=== PATIENT | female | born 1935 | race Caucasian/White ===

== ENCOUNTER 2024-08-10 11:58 | Inpatient (IN) | payer MEDICARE ==
[2024-08-10] MEDS: SODIUM CHLORIDE 0.9% 1,000 ML IV STA (12:20)
--- NOTE | 2024-08-10 12:21 | ED ---
General Adult HPI - General Chief complaint: Altered Mental Status Stated complaint: fall Time Seen by Provider: 08/10/24 12:15 Source: patient Mode of arrival: EMS Limitations: no limitations - History of Present Illness Initial comments: Patient is an 89-year-old female with no significant medical history presenting today after being found on the ground at home for 3 days. Patient AO x 4. She states she rolled out of bed between the bed and her nightstand and could not get up. She was able to sit herself up intermittently however could not stand. Family came to visit today and found her on the ground. Patient denies injury, denies hitting her head, headache, neck pain, numbness or focal weakness, dizziness, palpitations, chest pain, shortness of breath, fevers or chills. She is not on blood thinners. She has no complaints currently. - Related Data Home Medications Medication Instructions Recorded Confirmed No Known Home Medications 08/10/24 08/10/24 Allergies Allergy/AdvReac Type Severity Reaction Status Date / Time apple Allergy Unknown Verified 08/11/24 18:08 Review of Systems ROS Statement: Those systems with pertinent positive or pertinent negative responses have been documented in the HPI. ROS Other: All systems not noted in ROS Statement are negative. Past Medical History Past Medical History: No Reported History Past Surgical History: No Surgical Hx Reported General Exam - General Exam Comments Initial Comments: PE: CONSTITUTIONAL: no apparent distress, ill-appearing, nontoxic SKIN: [Cool, damp, no jaundice, hives or petechiae, stage II sacral ulcer] EYES:[ pupils are equally round, extraocular movements intact without nystagmus, clear conjunctiva, non-icteric sclera] HENT: [normocephalic, palpable hematoma to the right posterior occiput, exquisitely dry mucus membranes, oropharynx clear without exudates] NECK: , [Full range of motion, normal appearance, no midline spinal tenderness palpation] PULMONARY: [clear to auscultation without wheezes, rhonchi, or rales, normal excursion, no accessory muscle use and no stridor] CARDIOVASCULAR:[Tachycardia, irregularly irregular rate and rhythm, normal S1 and S2. No appreciated murmurs, rubs or gallops. Strong radial pulses with intact distal perfusion. No lower extremity edema] GASTROINTESTINAL: [soft, active bowel sounds throughout, non-tender, non- distended, no palpable masses, no rebound or guarding. No hepatosplenomegaly] MUSCULOSKELETAL: [Extremities have no gross deformity, swelling or bruising to the right knee, no deformity] NEUROLOGIC: [_a/o x 3, GCS 15, normal mentation and speech. No focal neurologic deficits, generalized weakness with 1-2 out of 5 strength in all 4 extremities] PSYCHIATRIC:[ _normal mood and affect, thought process is clear and linear] Limitations: no limitations Course Vital Signs 08/10/24 08/10/24 08/10/24 12:01 13:12 14:12 Temperature 98.6 F Pulse Rate 106 H 112 H 112 H Respiratory 20 18 18 Rate Blood Pressure 73/39 103/72 124/85 O2 Sat by Pulse 94 L 94 L 95 Oximetry 08/10/24 08/10/24 08/10/24 14:13 15:00 15:07 Temperature Pulse Rate 105 H 121 H 122 H Respiratory 18 20 18 Rate Blood Pressure 124/85 101/63 105/64 O2 Sat by Pulse 95 95 94 L Oximetry 08/10/24 08/10/24 08/10/24 16:00 17:19 18:00 Temperature 98.7 F Pulse Rate 101 H 98 96 Respiratory 46 H 18 18 Rate Blood Pressure 109/48 107/64 120/74 O2 Sat by Pulse 94 L 95 96 Oximetry 08/10/24 08/10/24 19:21 20:05 Temperature Pulse Rate 98 102 H Respiratory 16 16 Rate Blood Pressure 117/76 96/58 O2 Sat by Pulse 92 L 96 Oximetry EKG Findings - EKG Comments: EKG Findings:: A-fib with RVR, rate 144 bpm, QT/QTc 293/376, normal axis, no STEMI, no STEMI Medical Decision Making - Medical Decision Making Was pt. sent in by a medical professional or institution (, PA, WRAPPING CLERK, urgent care, hospital, or usp...) When possible be specific @ -No Did you speak to anyone other than the patient for history (EMS, parent, family, police, friend...)? What history was obtained from this source @ -No Did you review nursing and triage notes (agree or disagree)? Why? @ -I reviewed nursing and triage notes Were old charts reviewed (outside hosp., previous admission, EMS record, old EKG, old radiological studies, urgent care reports/EKG's, usp records)? Report findings @ -Medical records reviewed Differential Diagnosis (chest pain, altered mental status, abdominal pain women, abdominal pain men, vaginal bleeding, weakness, fever, dyspnea, syncope, headache, dizziness, GI bleed, back pain, seizure, CVA, palpatations, mental health, musculoskeletal)? Differential Weakness: Hypoglycemia, shock, sepsis, hyponatremia, anemia, infection, ACS, adverse medicine reaction, overdose, stroke, rhabdomyolysis, this is not meant to be an all-inclusive list. EKG interpreted by me (3pts min.). @ -As above X-rays interpreted by me (1pt min.). @Personally reviewed chest x-ray see no cardiomegaly or consolidations, personally reviewed x-ray of knee I see no malalignment or fracture, I agree with radiologist interpretation CT interpreted by me (1pt min.). @ -I personally reviewed patient's brain CT and CT C-spine, I see no evidence of hemorrhage, hematomas, fracture on CT brain, I see no evidence of fracture or malalignment on CT C-spine I agree with radiologist interpretation U/S interpreted by me (1pt. min.). @ -None done What testing was considered but not performed or refused? (CT, X-rays, U/S, labs)? Why? @ -None What meds were considered but not given or refused? Why? @ -Heparin infusion was considered due to new onset atrial fibrillation however patient has palpable hematoma to the posterior occiput, I feel at this time risk of intracranial bleeding with heparin initiation , due to recent head trauma outweighs potential benefit Did you discuss the management of the patient with other professionals (professionals i.e. , PA, WRAPPING CLERK, lab, RT, psych nurse, social media content specialist, pipe maker, teacher, low altitude air defense officer, case supervisor)? Give summary Case discussed with Dr. Fall critical care Was smoking cessation discussed for >3mins.? @ -No Was critical care preformed (if so, how long)? @Yes, 60 minutes Were there social determinants of health that impacted care today? How? (Homelessness, low income, unemployed, alcoholism, drug addiction, transportation, low edu. Level, literacy, decrease access to med. care, [place] [facility], rehab)? @ -No Was there de-escalation of care discussed even if they declined (Discuss DNR or withdrawal of care, Hospice)? @ -No What co-morbidities impacted this encounter? (DM, HTN, Smoking, COPD, CAD, Cancer, CVA, ARF, Chemo, Hep., AIDS, mental health diagnosis, sleep apnea, morbid obesity)? @ -None Was patient admitted / discharged? Hospital course, mention meds given and route, prescriptions, significant lab abnormalities, going to OR and other pertinent info. @ -Admission to ICU- patient is a pleasant 89-year-old female with no significant medical history presenting today after being found on the ground for 3 days. Patient is AO x 4 and states that she rolled out of bed and was unable to get up, found by her family today. She denies additional medical problems or complaints currently. Complete physical exam is performed, she has a hematoma to the right posterior occiput, no midline spinal tenderness, stage II sacral ulcer, bruising to the right knee without deformity. Dry mucous membranes. Very concerned patient will be in rhabdomyolysis, she is also in A-fib with RVR but I suspect this is secondary to dehydration. Will give 10 mg dose Cardizem and Cardizem drip, start with 1 L IV fluids, patient's vital signs also concerning for sepsis so blood culture and urine culture were ordered, antibiotics not been ordered as vital signs are more likely secondary to dehydration and patient's fall and multiple metabolic abnormalities, as opposed to infectious etiology however low threshold for starting antibiotics. Patient urinalysis significant for large leukocyte esterase, Rocephin added. Full 30 cc/kg bolus is going to be withheld as patient has BNP of 2310, so want to avoid fluid overloading patient. CK 524, lactic 5.4, bicarb 7, troponin 0.055. I suspect this is secondary to demand ischemia. Heparin is being withheld at this time due to patient's recent fall and hitting her head. VBG and acetone were added to labs out of concern for DKA/HHS. Of note patient sodium corrected for glucose makes patient actually hypernatremic with sodium 147. VB G resulted with pH 7.19, acetone positive. Patient was started on DKA protocol fluids. Heart rate was not controlled with initial Cardizem bolus so full weight-based bolus of 13.5 mg Cardizem was given with resultant control of rate, heart rate less than 110. Blood pressure remained stable. Updated patient and family to findings in anticipation of admission. They are agreeable plan of care. Case was discussed with FREDY Bose with [facility] physicians, kindly except patient for admission. Case was discussed with critical care, , kindly accepts patient for admission to the ICU, recommends additional 1 L normal saline which was subsequently ordered. Undiagnosed new problem with uncertain prognosis? @ -No Drug Therapy requiring intensive monitoring for toxicity (Heparin, Nitro, Insulin, Cardizem)? @Cardizem Were any procedures done? @ -No Diagnosis/symptom? @ -Rhabdomyolysis, sepsis secondary to UTI, atrial fibrillation with RVR, fall, DKA Acute, or Chronic, or Acute on Chronic? @Acute Uncomplicated (without systemic symptoms) or Complicated (systemic symptoms)? @Complicated Side effects of treatment? @ -No Exacerbation, Progression, or Severe Exacerbation? @ -No Poses a threat to life or bodily function? How? (Chest pain, [place], [place], pneumonia, PE, COPD, DKA, ARF, appy, cholecystitis, CVA, Diverticulitis, Homicidal, Suicidal, threat to staff... and all critical care pts) @Yes, each of these diagnoses are life-threatening, and could result in shock and - Lab Data Result diagrams: 08/11/24 04:07 08/11/24 08:01 Lab Results 08/10/24 08/10/24 08/10/24 Range/Units 12:21 12:21 12:21 WBC 15.2 H (3.8-10.6) k/uL RBC 5.30 (3.80-5.40) m/uL Hgb 16.1 H (11.4-16.0) gm/dL Hct 50.9 H (34.0-46.0) % MCV 96.0 (80.0-100.0) fL MCH 30.3 (25.0-35.0) pg MCHC 31.6 (31.0-37.0) g/dL RDW 13.8 (11.5-15.5) % Plt Count 309 (150-450) k/uL MPV 8.3 Neutrophils % 90 % Lymphocytes % 4 % Monocytes % 5 % Eosinophils % 0 % Basophils % 0 % Neutrophils # 13.7 H (1.3-7.7) k/uL Lymphocytes # 0.5 L (1.0-4.8) k/uL Monocytes # 0.8 (0-1.0) k/uL Eosinophils # 0.0 (0-0.7) k/uL Basophils # 0.0 (0-0.2) k/uL PT 10.5 (10.0-12.5) sec INR 0.9 (<1.2) APTT 19.4 L (22.0-30.0) sec VBG pH (7.31-7.41) VBG pCO2 (37-51) mmHg VBG HCO3 (24-28) mmol/L Sodium 140 (137-145) mmol/L Potassium 5.7 H (3.5-5.1) mmol/L Chloride 104 (98-107) mmol/L Carbon Dioxide 7 L* (22-30) mmol/L Anion Gap 29 mmol/L BUN 75 H (7-17) mg/dL Creatinine 1.92 H (0.52-1.04) mg/dL Est GFR (CKD-EPI)AfAm 26 (>60 ml/min/1.73 sqM) Est GFR (CKD-EPI)NonAf 23 (>60 ml/min/1.73 sqM) Glucose 530 H* (74-99) mg/dL POC Glucose (mg/dL) (70-110) mg/dL POC Glu Cash Accounting Clerk ID Estimated Ave Glu mg/dL mg/dL Hemoglobin A1c (<=6.0) % Lactic Ac Sepsis Rflx Plasma Lactic Acid Derrick (0.7-2.0) mmol/L Calcium 9.6 (8.4-10.2) mg/dL Ionized Calcium Jay 5.0 (4.5-5.3) mg/dL Phosphorus 8.3 H (2.5-4.5) mg/dL Magnesium 2.6 H (1.6-2.3) mg/dL Total Bilirubin 1.4 H (0.2-1.3) mg/dL AST 51 H (14-36) U/L ALT 39 H (4-34) U/L Alkaline Phosphatase 104 (38-126) U/L Creatine Kinase 524 H (30-135) U/L Troponin I (0.000-0.034) ng/mL NT-Pro-B Natriuret Pep 2310 pg/mL Total Protein 7.0 (6.3-8.2) g/dL Albumin 4.3 (3.5-5.0) g/dL TSH 1.640 (0.465-4.680) mIU/L Urine Color Urine Appearance (Clear) Urine pH (5.0-8.0) Ur Specific [place] (1.001-1.035) Urine Protein (Negative) Urine Glucose (UA) (Negative) Urine Ketones (Negative) Urine Blood (Negative) Urine Nitrite (Negative) Urine Bilirubin (Negative) Urine Urobilinogen (<2.0) mg/dL Ur Leukocyte Esterase (Negative) Urine RBC (0-5) /hpf Urine WBC (0-5) /hpf Urine WBC Clumps (None) /hpf Ur Squamous Epith Cells (0-4) /hpf Urine Bacteria (None) /hpf Acetone, Qual (Negative) 08/10/24 08/10/24 08/10/24 Range/Units 12:21 12:21 12:21 WBC (3.8-10.6) k/uL RBC (3.80-5.40) m/uL Hgb (11.4-16.0) gm/dL Hct (34.0-46.0) % MCV (80.0-100.0) fL MCH (25.0-35.0) pg MCHC (31.0-37.0) g/dL RDW (11.5-15.5) % Plt Count (150-450) k/uL MPV Neutrophils % % Lymphocytes % % Monocytes % % Eosinophils % % Basophils % % Neutrophils # (1.3-7.7) k/uL Lymphocytes # (1.0-4.8) k/uL Monocytes # (0-1.0) k/uL Eosinophils # (0-0.7) k/uL Basophils # (0-0.2) k/uL PT (10.0-12.5) sec INR (<1.2) APTT (22.0-30.0) sec VBG pH (7.31-7.41) VBG pCO2 (37-51) mmHg VBG HCO3 (24-28) mmol/L Sodium (137-145) mmol/L Potassium (3.5-5.1) mmol/L Chloride (98-107) mmol/L Carbon Dioxide (22-30) mmol/L Anion Gap mmol/L BUN (7-17) mg/dL Creatinine (0.52-1.04) mg/dL Est GFR (CKD-EPI)AfAm (>60 ml/min/1.73 sqM) Est GFR (CKD-EPI)NonAf (>60 ml/min/1.73 sqM) Glucose (74-99) mg/dL POC Glucose (mg/dL) (70-110) mg/dL POC Glu Cash Accounting Clerk ID Estimated Ave Glu mg/dL mg/dL Hemoglobin A1c (<=6.0) % Lactic Ac Sepsis Rflx Plasma Lactic Acid Derrick 5.4 H* (0.7-2.0) mmol/L Calcium (8.4-10.2) mg/dL Ionized Calcium Jay (4.5-5.3) mg/dL Phosphorus (2.5-4.5) mg/dL Magnesium (1.6-2.3) mg/dL Total Bilirubin (0.2-1.3) mg/dL AST (14-36) U/L ALT (4-34) U/L Alkaline Phosphatase (38-126) U/L Creatine Kinase (30-135) U/L Troponin I 0.055 H* (0.000-0.034) ng/mL NT-Pro-B Natriuret Pep pg/mL Total Protein (6.3-8.2) g/dL Albumin (3.5-5.0) g/dL TSH (0.465-4.680) mIU/L Urine Color Colorless Urine Appearance Cloudy H (Clear) Urine pH 5.5 (5.0-8.0) Ur Specific [place] 1.018 (1.001-1.035) Urine Protein 1+ H (Negative) Urine Glucose (UA) 4+ H (Negative) Urine Ketones 2+ H (Negative) Urine Blood Small H (Negative) Urine Nitrite Negative (Negative) Urine Bilirubin Negative (Negative) Urine Urobilinogen <2.0 (<2.0) mg/dL Ur Leukocyte Esterase Large H (Negative) Urine RBC 15 H (0-5) /hpf Urine WBC >182 H (0-5) /hpf Urine WBC Clumps Many H (None) /hpf Ur Squamous Epith Cells <1 (0-4) /hpf Urine Bacteria Occasional H (None) /hpf Acetone, Qual (Negative) 02/23/25 02/23/25 02/23/25 Range/Units 12:21 12:21 12:23 WBC (3.8-10.6) k/uL RBC (3.80-5.40) m/uL Hgb (11.4-16.0) gm/dL Hct (34.0-46.0) % MCV (80.0-100.0) fL MCH (25.0-35.0) pg MCHC (31.0-37.0) g/dL RDW (11.5-15.5) % Plt Count (150-450) k/uL MPV Neutrophils % % Lymphocytes % % Monocytes % % Eosinophils % % Basophils % % Neutrophils # (1.3-7.7) k/uL Lymphocytes # (1.0-4.8) k/uL Monocytes # (0-1.0) k/uL Eosinophils # (0-0.7) k/uL Basophils # (0-0.2) k/uL PT (10.0-12.5) sec INR (<1.2) APTT (22.0-30.0) sec VBG pH (7.31-7.41) VBG pCO2 (37-51) mmHg VBG HCO3 (24-28) mmol/L Sodium (137-145) mmol/L Potassium (3.5-5.1) mmol/L Chloride (98-107) mmol/L Carbon Dioxide (22-30) mmol/L Anion Gap mmol/L BUN (7-17) mg/dL Creatinine (0.52-1.04) mg/dL Est GFR (CKD-EPI)AfAm (>60 ml/min/1.73 sqM) Est GFR (CKD-EPI)NonAf (>60 ml/min/1.73 sqM) Glucose (74-99) mg/dL POC Glucose (mg/dL) 479 H (70-110) mg/dL POC Glu Cash Accounting Clerk ID Berenice Guillermo Estimated Ave Glu mg/dL 321 mg/dL Hemoglobin A1c 12.8 H (<=6.0) % Lactic Ac Sepsis Rflx Plasma Lactic Acid Derrick (0.7-2.0) mmol/L Calcium (8.4-10.2) mg/dL Ionized Calcium Jay (4.5-5.3) mg/dL Phosphorus (2.5-4.5) mg/dL Magnesium (1.6-2.3) mg/dL Total Bilirubin (0.2-1.3) mg/dL AST (14-36) U/L ALT (4-34) U/L Alkaline Phosphatase (38-126) U/L Creatine Kinase (30-135) U/L Troponin I (0.000-0.034) ng/mL NT-Pro-B Natriuret Pep pg/mL Total Protein (6.3-8.2) g/dL Albumin (3.5-5.0) g/dL TSH (0.465-4.680) mIU/L Urine Color Urine Appearance (Clear) Urine pH (5.0-8.0) Ur Specific [place] (1.001-1.035) Urine Protein (Negative) Urine Glucose (UA) (Negative) Urine Ketones (Negative) Urine Blood (Negative) Urine Nitrite (Negative) Urine Bilirubin (Negative) Urine Urobilinogen (<2.0) mg/dL Ur Leukocyte Esterase (Negative) Urine RBC (0-5) /hpf Urine WBC (0-5) /hpf Urine WBC Clumps (None) /hpf Ur Squamous Epith Cells (0-4) /hpf Urine Bacteria (None) /hpf Acetone, Qual Positive (Negative) 08/10/24 08/10/24 08/10/24 Range/Units 12:53 13:50 13:50 WBC (3.8-10.6) k/uL RBC (3.80-5.40) m/uL Hgb (11.4-16.0) gm/dL Hct (34.0-46.0) % MCV (80.0-100.0) fL MCH (25.0-35.0) pg MCHC (31.0-37.0) g/dL RDW (11.5-15.5) % Plt Count (150-450) k/uL MPV Neutrophils % % Lymphocytes % % Monocytes % % Eosinophils % % Basophils % % Neutrophils # (1.3-7.7) k/uL Lymphocytes # (1.0-4.8) k/uL Monocytes # (0-1.0) k/uL Eosinophils # (0-0.7) k/uL Basophils # (0-0.2) k/uL PT (10.0-12.5) sec INR (<1.2) APTT (22.0-30.0) sec VBG pH 7.18 L* (7.31-7.41) VBG pCO2 37 (37-51) mmHg VBG HCO3 14 L (24-28) mmol/L Sodium (137-145) mmol/L Potassium 4.7 (3.5-5.1) mmol/L Chloride (98-107) mmol/L Carbon Dioxide (22-30) mmol/L Anion Gap mmol/L BUN (7-17) mg/dL Creatinine (0.52-1.04) mg/dL Est GFR (CKD-EPI)AfAm (>60 ml/min/1.73 sqM) Est GFR (CKD-EPI)NonAf (>60 ml/min/1.73 sqM) Glucose (74-99) mg/dL POC Glucose (mg/dL) (70-110) mg/dL POC Glu Cash Accounting Clerk ID Estimated Ave Glu mg/dL mg/dL Hemoglobin A1c (<=6.0) % Lactic Ac Sepsis Rflx Y Plasma Lactic Acid Derrick (0.7-2.0) mmol/L Calcium (8.4-10.2) mg/dL Ionized Calcium Jay (4.5-5.3) mg/dL Phosphorus (2.5-4.5) mg/dL Magnesium (1.6-2.3) mg/dL Total Bilirubin (0.2-1.3) mg/dL AST (14-36) U/L ALT (4-34) U/L Alkaline Phosphatase (38-126) U/L Creatine Kinase (30-135) U/L Troponin I (0.000-0.034) ng/mL NT-Pro-B Natriuret Pep pg/mL Total Protein (6.3-8.2) g/dL Albumin (3.5-5.0) g/dL TSH (0.465-4.680) mIU/L Urine Color Urine Appearance (Clear) Urine pH (5.0-8.0) Ur Specific [place] (1.001-1.035) Urine Protein (Negative) Urine Glucose (UA) (Negative) Urine Ketones (Negative) Urine Blood (Negative) Urine Nitrite (Negative) Urine Bilirubin (Negative) Urine Urobilinogen (<2.0) mg/dL Ur Leukocyte Esterase (Negative) Urine RBC (0-5) /hpf Urine WBC (0-5) /hpf Urine WBC Clumps (None) /hpf Ur Squamous Epith Cells (0-4) /hpf Urine Bacteria (None) /hpf Acetone, Qual (Negative) 08/10/24 08/10/24 Range/Units 13:50 14:02 WBC (3.8-10.6) k/uL RBC (3.80-5.40) m/uL Hgb (11.4-16.0) gm/dL Hct (34.0-46.0) % MCV (80.0-100.0) fL MCH (25.0-35.0) pg MCHC (31.0-37.0) g/dL RDW (11.5-15.5) % Plt Count (150-450) k/uL MPV Neutrophils % % Lymphocytes % % Monocytes % % Eosinophils % % Basophils % % Neutrophils # (1.3-7.7) k/uL Lymphocytes # (1.0-4.8) k/uL Monocytes # (0-1.0) k/uL Eosinophils # (0-0.7) k/uL Basophils # (0-0.2) k/uL PT (10.0-12.5) sec INR (<1.2) APTT (22.0-30.0) sec VBG pH (7.31-7.41) VBG pCO2 (37-51) mmHg VBG HCO3 (24-28) mmol/L Sodium (137-145) mmol/L Potassium (3.5-5.1) mmol/L Chloride (98-107) mmol/L Carbon Dioxide (22-30) mmol/L Anion Gap mmol/L BUN (7-17) mg/dL Creatinine (0.52-1.04) mg/dL Est GFR (CKD-EPI)AfAm (>60 ml/min/1.73 sqM) Est GFR (CKD-EPI)NonAf (>60 ml/min/1.73 sqM) Glucose (74-99) mg/dL POC Glucose (mg/dL) 447 H (70-110) mg/dL POC Glu Cash Accounting Clerk JOSE Moreno Estimated Ave Glu mg/dL mg/dL Hemoglobin A1c (<=6.0) % Lactic Ac Sepsis Rflx Plasma Lactic Acid Derrick (0.7-2.0) mmol/L Calcium (8.4-10.2) mg/dL Ionized Calcium Jay (4.5-5.3) mg/dL Phosphorus (2.5-4.5) mg/dL Magnesium (1.6-2.3) mg/dL Total Bilirubin (0.2-1.3) mg/dL AST (14-36) U/L ALT (4-34) U/L Alkaline Phosphatase (38-126) U/L Creatine Kinase 681 H (30-135) U/L Troponin I (0.000-0.034) ng/mL NT-Pro-B Natriuret Pep pg/mL Total Protein (6.3-8.2) g/dL Albumin (3.5-5.0) g/dL TSH (0.465-4.680) mIU/L Urine Color Urine Appearance (Clear) Urine pH (5.0-8.0) Ur Specific [place] (1.001-1.035) Urine Protein (Negative) Urine Glucose (UA) (Negative) Urine Ketones (Negative) Urine Blood (Negative) Urine Nitrite (Negative) Urine Bilirubin (Negative) Urine Urobilinogen (<2.0) mg/dL Ur Leukocyte Esterase (Negative) Urine RBC (0-5) /hpf Urine WBC (0-5) /hpf Urine WBC Clumps (None) /hpf Ur Squamous Epith Cells (0-4) /hpf Urine Bacteria (None) /hpf Acetone, Qual (Negative) Disposition Clinical Impression: DKA (diabetic ketoacidosis), Rhabdomyolysis, Atrial fibrillation with rapid ventricular response Disposition: ADMITTED IP TO THIS HOSP Condition: Stable
[2024-08-10 12:26] LABS: Basophils % (A) 0 %; Eosinophils % (A) 0 %; HCT 50.9 % (34.0-46.0); HGB 16.1 gm/dL (11.4-16.0); Lymphocytes # (A) 0.5 k/uL (1.0-4.8); Lymphocytes % (A) 4 %; MCH 30.3 pg (25.0-35.0); MCHC 31.6 g/dL (31.0-37.0); Mean Platelet Volume 8.3; Monocytes # (A) 0.8 k/uL (0-1.0); Monocytes % (A) 5 %; Neutrophils # (A) 13.7 k/uL (1.3-7.7); Neutrophils % (A) 90 %; Platelet Count 309 k/uL (150-450); RDW 13.8 % (11.5-15.5); WBC 15.2 k/uL (3.8-10.6)
[2024-08-10 12:29] LABS: Glucose,Whole Blood 479 mg/dL (70-110)
[2024-08-10 12:33] LABS: Appearance,Urine Cloudy (Clear); Bacteria,Urine Occasional /hpf; Bilirubin,Urine Negative (Negative); Blood,Urine Small (Negative); Color,Urine Colorless; Glucose,Urine (UA) 4+ (Negative); Leukocyte Esterase,Urine Large (Negative); Nitrite,Urine Negative (Negative); PH, Urine 5.5 (5.0-8.0); Protein,Urine 1+ (Negative); RBC,Urine 15 /hpf (0-5); Specific Gravity,Urine 1.018 (1.001-1.035); Squamous Epithelial Cell,Urine <1 /hpf (0-4); Urobilinogen,Urine <2.0 mg/dL (<2.0); WBC,Urine >182 /hpf (0-5)
[2024-08-10 12:37] LABS: Ketones,Urine 2+ (Negative)
[2024-08-10] MEDS: DILTIAZEM DRIP BOLUS FROM BAG 1 MG SOLN IV ONE ×2 (12:37→13:45)
[2024-08-10 12:38] LABS: ALT 39 U/L (4-34); African American GFR (CKD) 26 (>60 ml/min/1.73 sqM); Anion Gap 29 mmol/L; Blood Urea Nitrogen 75 mg/dL (7-17); Calcium 9.6 mg/dL (8.4-10.2); Chloride 104 mmol/L (98-107); Non-African American GFR(CKD) 23 (>60 ml/min/1.73 sqM); Sodium 140 mmol/L (137-145)
[2024-08-10] MEDS ORDERED: DILTIAZEM DRIP BOLUS FROM BAG 1 MG SOLN IV ONE (12:42)
[2024-08-10] MEDS: DILTIAZEM 125 MG in SODIUM CHLORIDE 0.9% 100 ML IV SCH (12:45)
[2024-08-10 12:47] LABS: NT-Pro-B-Type Natriuretic Pept 2310 pg/mL
[2024-08-10 12:50] LABS: Carbon Dioxide 7 mmol/L (22-30); Glucose 530 mg/dL (74-99); Phosphorus 8.3 mg/dL (2.5-4.5); Potassium 5.7 mmol/L (3.5-5.1)
[2024-08-10 12:51] LABS: AST 51 U/L (14-36); Albumin 4.3 g/dL (3.5-5.0); Alkaline Phosphatase 104 U/L (38-126); Creatine Kinase 524 U/L (30-135); Magnesium 2.6 mg/dL (1.6-2.3); Total Bilirubin 1.4 mg/dL (0.2-1.3)
[2024-08-10] MEDS ORDERED: Potassium Replacement Protocol 1 EACH MISC MISCELLANE PRN (13:12)
[2024-08-10] MEDS ORDERED: DEXTROSE 50% SYRINGE 50 ML IVP PRN ×2 (13:12)
[2024-08-10] MEDS ORDERED: Magnesium Replacement Protocol 1 EACH MISC MISCELLANE PRN (13:12)
[2024-08-10 13:17] LABS: INR 0.9 (<1.2); Prothrombin Time 10.5 sec (10.0-12.5)
[2024-08-10 13:18] LABS: Partial Thromboplastin Time 19.4 sec (22.0-30.0)
--- NOTE | 2024-08-10 13:18 | CT ---
EXAMINATION TYPE: CT brain nimisha wo con DATE OF EXAM: 08/10/2024 1:08 PM COMPARISON: None. CLINICAL INDICATION: Female, 89 years old with history of fall from bed, hematoma R. post. Occiput, f all from bed, hematoma R. post. Occiput, pain TECHNIQUE: CT of the brain is performed utilizing 3 mm thick sections through the posterior fossa and 3 mm thick sections through the remaining calvarium. Study is performed within 24 hours of arrival to the hospital. Contrast used: mL of , (none if empty) CT DLP: 1317.6 mGycm, Automated exposure control for dose reduction was used. FINDINGS: No abnormal hyperdensity is present to suggest an acute intracranial hemorrhage. No mass lesion is evident. No acute infarcts are evident. There is some periventricular white matter hypodensity, likely on the basis of chronic white matter ischemic changes. Ventricles and sulci are prominent for the patient age. No acute fractures evident. Paranasal sinuses and mastoid air cells within the [id number] are clear. IMPRESSIONS: 1. No acute intracranial process. Follow-up MRI can be performed as clinically indicated. 2. Chronic appearing periventricular white matter ischemic type changes with age related atrophy. CT cervical spine. COMPARISON: None TECHNIQUE: CT of the cervical spine is performed in the axial plane at 2 mm thick sections. Reconstr ucted images in the coronal, and sagittal plane are reviewed on the computer. FINDINGS: No acute fractures are evident. Vertebral body alignment is normal. Disc heights are preserved. Vertebral body heights are preserved. No spinal canal stenosis is evident. No neural foraminal stenosis is evident. IMPRESSION: 1. No acute osseous abnormality cervical spine. [facility], , 08/10/2024 1:16 PM
--- NOTE | 2024-08-10 13:47 | XR ---
EXAMINATION TYPE: XR chest 2V DATE OF EXAM: 08/10/2024 1:40 PM COMPARISON: None. CLINICAL INDICATION: Female, 89 years old with history of Weakness, TECHNIQUE: XR chest 2V view(s) obtained. FINDINGS: The heart size is normal. The pulmonary vasculature is normal. The lungs are clear. Small hiatal hernia not excluded IMPRESSION: 1. No acute pulmonary process. 2. Small hiatal hernia is not excluded. [facility], , 08/10/2024 1:45 PM
--- NOTE | 2024-08-10 13:48 | XR ---
EXAMINATION TYPE: XR knee complete RT DATE OF EXAM: 08/10/2024 1:40 PM COMPARISON: None. CLINICAL INDICATION: Female, 89 years old with history of bruising, fall, no deformity, pain TECHNIQUE: 3 view(s) obtained. FINDINGS: No significant joint effusion is evident. Anterior superior patellar spur is present. Joint spaces ar e preserved. No acute fracture or dislocation evident. Follow up exams can be performed 7-10 days from acute trauma for continued pain. IMPRESSION: 1. No acute osseous abnormality right knee [facility], , 08/10/2024 1:46 PM
[2024-08-10] MEDS: cefTRIAXone IN SWFI 1,000 MG/10 ML SYRINGE IVP STA (13:55)
[2024-08-10] MEDS: SODIUM CHLORIDE 0.9% 1,000 ML IV SCH (13:56)
[2024-08-10 14:05] LABS: VBG PH 7.18 (7.31-7.41)
[2024-08-10] MEDS: INSULIN REGULAR 100 UNIT in SODIUM CHLORIDE 0.9% 100 ML IV SCH (14:09)
[2024-08-10] MEDS: INSULIN REGULAR BOLUS (FROM DRIP BAG) IV ONE (14:09)
[2024-08-10 14:13] LABS: Glucose,Whole Blood 447 mg/dL (70-110)
[2024-08-10] MEDS ORDERED: NALOXONE 0.4 MG/ML 1 ML VIAL IV PRN (14:31)
[2024-08-10] MEDS ORDERED: Phosphorus Replacement Protoco 1 EACH MISC MISCELLANE PRN (14:43)
[2024-08-10 15:05] LABS: Glucose,Whole Blood 383 mg/dL (70-110)
[2024-08-10 16:19] LABS: African American GFR (CKD) 33 (>60 ml/min/1.73 sqM); Anion Gap 20 mmol/L; Blood Urea Nitrogen 77 mg/dL (7-17); Carbon Dioxide 12 mmol/L (22-30); Chloride 113 mmol/L (98-107); Glucose 322 mg/dL (74-99); Non-African American GFR(CKD) 28 (>60 ml/min/1.73 sqM); Potassium 3.9 mmol/L (3.5-5.1); Sodium 145 mmol/L (137-145)
[2024-08-10 16:22] LABS: Glucose,Whole Blood 251 mg/dL (70-110)
--- NOTE | 2024-08-10 16:33 | P.CNPUL ---
History of Present Illness Consult date: 08/10/24 Chief complaint: DKA History of present illness: 89-year-old female patient presented to the ED after being found on the floor at home. The patient was feeling weak and she stated that she was unable to get up and carry herself. She was unable to stand. No reported injuries. Workup was done in the ED and the patient was found to have hyperglycemia with a glucose of 530. Acute kidney injury with a BUN of 75 and a creatinine of 1.9. She had a anion gap metabolic acidosis with a gap of 29 and serum bicarb of 7. Sodium was at 140. Lactic acid level was at 5.4. CPK was 524. LFTs showed a bilirubin of 1.4. Calcium levels at 9.6. proBNP level is 2310. UA showed plus for glucose, +2 ketones and multiple WBCs. Serum acetone was positive. White cell count was at 15.2 with a hemoglobin of 16.1 and platelet count of 309. Chest x-ray showed small hiatal hernia without any acute abnormalities. X-ray of the knee showed no fracture and CAT scan of the head and h cervical spine showed no fractures. Chronic appearing periventricular white matter disease was noted along with some atrophy. Based on that, the patient was started on IV fluids, given 2 L bolus and the patient is currently on normal saline at rate of 200 cc an hour and the patient was started on insulin drip at 0.1 units/kg/h. Patient was also noted to be an atrial fibrillation with rapid ventricular response. The heart rate was 144 initially and improved with fluid resuscitation. She was hypotensive initially with a blood pressure of 73/39 and her most recent heart rate shows improvement with a rate of 122 and a BP of 105/64. She remains on room air oxygen with a pulse ox of 94%. Based on that, and the intensive care unit consultation was requested. Review of Systems Constitutional: Reports daytime sleepiness, Reports fatigue, Reports poor appetite, Reports weakness Eyes: denies as per HPI, denies blurred vision, denies bulging eye, denies decreased vision, denies diplopia, denies discharge, denies dry eye, denies irritation, denies itching, denies pain, denies photophobia, denies loss of peripheral vision, denies loss of vision, denies tunnel vision/blind spots Ears: deny: decreased hearing, ear discharge, earache, tinnitus Ears, nose, mouth and throat: Reports as per HPI Breasts: absent: as per HPI, change in shape, gynecomastia, masses, nipple discharge, pain, skin changes, swelling Cardiovascular: Reports as per HPI Respiratory: Reports as per HPI Gastrointestinal: Reports as per HPI Genitourinary: Reports as per HPI Menstruation: Reports as per HPI Musculoskeletal: absent: ankle pain, ankle stiffness, ankle swelling, as per HPI, elbow pain, elbow stiffness, elbow swelling, foot pain, foot stiffness, foot swelling, hand pain, hand stiffness, hand swelling, hip pain, hip stiffness, hip swelling, knee pain, knee stiffness, knee swelling, shoulder pain, shoulder stiffness, shoulder swelling, wrist pain, wrist stiffness, wrist swelling Integumentary: Reports as per HPI Neurological: Reports as per HPI, Reports gait dysfunction, Reports weakness Psychiatric: Reports as per HPI Endocrine: Reports high blood sugars Hematologic/Lymphatic: Reports as per HPI Allergic/Immunologic: Reports as per HPI Past Medical History Past Medical History: No Reported History, Diabetes Mellitus Past Surgical History: No Surgical Hx Reported Medications and Allergies Home Medications Medication Instructions Recorded Confirmed Type No Known Home Medications 08/10/24 08/10/24 History Allergies Allergy/AdvReac Type Severity Reaction Status Date / Time No Known Allergies Allergy Verified 08/10/24 12:17 Physical Exam Vitals: Vital Signs Temp Pulse Resp BP Pulse Ox 08/10/24 15:07 122 H 18 105/64 94 L 08/10/24 14:12 112 H 18 124/85 95 08/10/24 13:12 112 H 18 103/72 94 L 08/10/24 12:01 98.6 F 106 H 20 73/39 94 L Intake and Output 08/10/24 08/10/24 08/10/24 06:59 14:59 22:59 Other: Weight 54.431 kg The patient appeared well nourished and normally developed. Vital signs as documented. Mucous membranes are dry Head exam is unremarkable. No scleral icterus or corneal arcus noted. Neck is without jugular venous distension, thyromegaly, or carotid bruits. Carotid upstrokes are brisk bilaterally. Lungs are clear to auscultation and percussion. Cardiac exam reveals the PMI to be normally sized and situated. Irregular, tachycardic, consistent with A-fib with RVR. First and second heart sounds normal. No murmurs, rubs or gallops. Abdominal exam reveals normal bowel sounds, no masses, no organomegaly and no aortic enlargement. Extremities are nonedematous and both femoral and pedal pulses are normal. Examination of the skin revealed no evidence of significant rashes, suspicious appearing nevi or other concerning lesions. Neurologically, the patient is awake and alert and the patient does not have any focal neurological deficit. Cranial nerves are essentially intact. Results - Laboratory Findings CBC and BMP: 08/10/24 12:21 08/10/24 13:50 PT/INR, D-dimer PT 10.5 sec (10.0-12.5) 08/10/24 12:21 INR 0.9 (<1.2) 08/10/24 12:21 Abnormal lab findings: Abnormal Labs 08/10/24 08/10/24 08/10/24 12:21 12:21 12:21 WBC 15.2 H Hgb 16.1 H Hct 50.9 H Neutrophils # 13.7 H Lymphocytes # 0.5 L APTT 19.4 L VBG pH VBG HCO3 Potassium 5.7 H Carbon Dioxide 7 L* BUN 75 H Creatinine 1.92 H Glucose 530 H* POC Glucose (mg/dL) Plasma Lactic Acid Derrick Phosphorus 8.3 H Magnesium 2.6 H Total Bilirubin 1.4 H AST 51 H ALT 39 H Creatine Kinase 524 H Troponin I Urine Appearance Urine Protein Urine Glucose (UA) Urine Ketones Urine Blood Ur Leukocyte Esterase Urine RBC Urine WBC Urine WBC Clumps Urine Bacteria 08/10/24 08/10/24 08/10/24 12:21 12:21 12:21 WBC Hgb Hct Neutrophils # Lymphocytes # APTT VBG pH VBG HCO3 Potassium Carbon Dioxide BUN Creatinine Glucose POC Glucose (mg/dL) Plasma Lactic Acid Derrick 5.4 H* Phosphorus Magnesium Total Bilirubin AST ALT Creatine Kinase Troponin I 0.055 H* Urine Appearance Cloudy H Urine Protein 1+ H Urine Glucose (UA) 4+ H Urine Ketones 2+ H Urine Blood Small H Ur Leukocyte Esterase Large H Urine RBC 15 H Urine WBC >182 H Urine WBC Clumps Many H Urine Bacteria Occasional H 08/10/24 08/10/24 08/10/24 12:23 13:50 13:50 WBC Hgb Hct Neutrophils # Lymphocytes # APTT VBG pH 7.18 L* VBG HCO3 14 L Potassium Carbon Dioxide BUN Creatinine Glucose POC Glucose (mg/dL) 479 H Plasma Lactic Acid Derrick Phosphorus Magnesium Total Bilirubin AST ALT Creatine Kinase 681 H Troponin I Urine Appearance Urine Protein Urine Glucose (UA) Urine Ketones Urine Blood Ur Leukocyte Esterase Urine RBC Urine WBC Urine WBC Clumps Urine Bacteria 08/10/24 08/10/24 14:02 15:04 WBC Hgb Hct Neutrophils # Lymphocytes # APTT VBG pH VBG HCO3 Potassium Carbon Dioxide BUN Creatinine Glucose POC Glucose (mg/dL) 447 H 383 H Plasma Lactic Acid Derrick Phosphorus Magnesium Total Bilirubin AST ALT Creatine Kinase Troponin I Urine Appearance Urine Protein Urine Glucose (UA) Urine Ketones Urine Blood Ur Leukocyte Esterase Urine RBC Urine WBC Urine WBC Clumps Urine Bacteria - Diagnostic Findings Chest x-ray: image reviewed Assessment and Plan Plan: Acute DKA with hyperglycemia and anion gap metabolic acidosis Acute kidney injury, creatinine is at 1.9 likely secondary to intravascular volume depletion and dehydration Mild hyperkalemia secondary to anion gap metabolic acidosis and DKA Atrial fibrillation with rapid ventricular response Mild rhabdomyolysis secondary to above. The patient had collapsed on the floor for several days Suspected UTI Mild leukocytosis, reactive versus septic in nature Generalized weakness secondary to above. Plan Total of 2 L of normal saline Normal saline at rate of 200 cc an hour and insulin drip per DKA protocol Hourly blood sugar monitoring Electrolytes every 4 hours Monitor CPK Monitor renal function Monitor white cell count Give IV Rocephin 1 g every 24 hours Blood cultures and urine cultures Echocardiogram Monitor the heart rate and utilize Cardizem drip if needed Anticipated from the heart rates with fluid resuscitation Will discuss anticoagulation for later stage Admit to the ICU
[2024-08-10] MEDS: LACTATED RINGERS 1,000 ML BAG IV STA (16:52)
[2024-08-10] MEDS: D5-0.45% NACL WITH KCL 20MEQ/L 1,000 ML IV SCH (16:52)
--- NOTE | 2024-08-10 17:01 | P.HPIM ---
History of Present Illness H&P Date: 08/10/24 89 year old F with no PMH does not follow a physician presents to the ED. Daughter and grand daughter at bedside providing majority of the history. Appears she fell while trying to get out of bed on . She was found down on Sunday. Unknown head trauma or loss of consciousness. Lives alone and ambulates with the aid of a cane. In the ED she underwent extensive evaluation. BP 73/39, HR 106, T 98.6F, RR 22, 94% on RA. CBC, Coag panel, CMP significant for WBC 15.2, Hg 16.1, Hct 50.9, APTT 19.4, K 5.7, bicarb 7, BUN 75, Cr 1.92, glu 530, T. Bili 1.4, AST 51, ALT 39. Lactic acid 5.4. CPK 526. Trop 0.055. BNP 2310. TSH 1.64. Phos 8.3. Mag 2.6. UA large LE with > [address] head and C-spine no acute process. CXR, Knee XR no acute process. EKG A-Fib with RVR rate of 144. Patient is admitted to ICU for further workup and management. General: Lethargic Derm: warm, dry Head: atraumatic, normocephalic, symmetric Eyes: EOMI, no lid lag, anicteric sclera Mouth: no lip lesion, mucus membranes moist Cardiovascular: S1S2 irreg, no murmur Lungs: Decreased BS bilateral, no rhonchi, no rales , no accessory muscle use Abdominal: soft, nontender to palpation, no guarding, no appreciable organomegaly Ext: no gross muscle atrophy, no edema, no contractures Neuro: no focal neuro deficits Psych: Lethargic Based on my assessment of this patient, this patient meets a high complexity level of care. Diabetic ketoacidosis: Start insulin drip. D5 1/2 NS with 20 meq KCl at 150 cc/hr. A1c ordered. Accuchecks Q1H. BMP Q4H. Telemetry monitoring. Sepsis possibly related to UTI: IV hydration as above. Start Rocephin 1g IV QD. Obtain UCx, BCx. Atrial fibrillation with RVR: TSH wnl. Cardizem drip at 5 mg/hr. ASHISH VASC of 3. Maintain K > 4 and Mg > 2. Start Eliquis 2.5 mg PO BID. Echo ordered. Cardiology consult. NSTEMI: Likely type 2. No chest pain. Trend Trop/EKG. Management as above. Hyperkalemia: Resolved with IV hydration and IV insulin. Acute kidney injury: Versus CKD. IV hydration as above. Renal bladder US ordered. Transaminitis: Unknown etiology. Liver GB US ordered. CODE STATUS: FULL CODE DVT Prophylaxis: Eliquis GI Prophylaxis: Protonix 40 mg IV QD. Designated medical POA if patient is not able to make medical decisions for themselves: Daughter I have reviewed the following environmental consultant notes: ED note. Pulmonary note. I have reviewed the results of the following tests: As above. I have ordered the following tests: As above. I have discussed the care of this patient with the following independent historian: Family. EVANS. I have independently interpreted the following test below: EKG. I have discussed the management of this patient with the following physician: Dr. Amaya. Past Medical History Past Medical History: No Reported History Past Surgical History: No Surgical Hx Reported Medications and Allergies Home Medications Medication Instructions Recorded Confirmed Type No Known Home Medications 08/10/24 08/10/24 History Allergies Allergy/AdvReac Type Severity Reaction Status Date / Time No Known Allergies Allergy Verified 08/10/24 12:17 Physical Exam Vitals: Vital Signs Temp Pulse Resp BP Pulse Ox 08/10/24 16:00 101 H 46 H 109/48 94 L 08/10/24 15:07 122 H 18 105/64 94 L 08/10/24 15:00 121 H 20 101/63 95 08/10/24 14:13 105 H 18 124/85 95 08/10/24 14:12 112 H 18 124/85 95 08/10/24 13:12 112 H 18 103/72 94 L 08/10/24 12:01 98.6 F 106 H 20 73/39 94 L Intake and Output 08/10/24 08/10/24 08/10/24 06:59 14:59 22:59 Intake Total 12.187 Balance 12.187 Intake: Intake, IV Titration 12.187 Amount Insulin Regular 100 unit 12.187 In Sodium Chloride 0.9% 100 ml @ 0.1 UNITS/KG/HR 5.498 mls/hr IV .[id number] [facility] Rx#:[id number] Other: Weight 54.431 kg Results CBC & Chem 7: 08/10/24 12:21 08/10/24 15:53 Labs: Abnormal Lab Results - Last 24 Hours (Table) 08/10/24 08/10/24 08/10/24 Range/Units 12:21 12:21 12:21 WBC 15.2 H (3.8-10.6) k/uL Hgb 16.1 H (11.4-16.0) gm/dL Hct 50.9 H (34.0-46.0) % Neutrophils # 13.7 H (1.3-7.7) k/uL Lymphocytes # 0.5 L (1.0-4.8) k/uL APTT 19.4 L (22.0-30.0) sec VBG pH (7.31-7.41) VBG HCO3 (24-28) mmol/L Potassium 5.7 H (3.5-5.1) mmol/L Chloride (98-107) mmol/L Carbon Dioxide 7 L* (22-30) mmol/L BUN 75 H (7-17) mg/dL Creatinine 1.92 H (0.52-1.04) mg/dL Glucose 530 H* (74-99) mg/dL POC Glucose (mg/dL) (70-110) mg/dL Plasma Lactic Acid Derrick (0.7-2.0) mmol/L Phosphorus 8.3 H (2.5-4.5) mg/dL Magnesium 2.6 H (1.6-2.3) mg/dL Total Bilirubin 1.4 H (0.2-1.3) mg/dL AST 51 H (14-36) U/L ALT 39 H (4-34) U/L Creatine Kinase 524 H (30-135) U/L Troponin I (0.000-0.034) ng/mL Urine Appearance (Clear) Urine Protein (Negative) Urine Glucose (UA) (Negative) Urine Ketones (Negative) Urine Blood (Negative) Ur Leukocyte Esterase (Negative) Urine RBC (0-5) /hpf Urine WBC (0-5) /hpf Urine WBC Clumps (None) /hpf Urine Bacteria (None) /hpf 08/10/24 08/10/24 08/10/24 Range/Units 12:21 12:21 12:21 WBC (3.8-10.6) k/uL Hgb (11.4-16.0) gm/dL Hct (34.0-46.0) % Neutrophils # (1.3-7.7) k/uL Lymphocytes # (1.0-4.8) k/uL APTT (22.0-30.0) sec VBG pH (7.31-7.41) VBG HCO3 (24-28) mmol/L Potassium (3.5-5.1) mmol/L Chloride (98-107) mmol/L Carbon Dioxide (22-30) mmol/L BUN (7-17) mg/dL Creatinine (0.52-1.04) mg/dL Glucose (74-99) mg/dL POC Glucose (mg/dL) (70-110) mg/dL Plasma Lactic Acid Derrick 5.4 H* (0.7-2.0) mmol/L Phosphorus (2.5-4.5) mg/dL Magnesium (1.6-2.3) mg/dL Total Bilirubin (0.2-1.3) mg/dL AST (14-36) U/L ALT (4-34) U/L Creatine Kinase (30-135) U/L Troponin I 0.055 H* (0.000-0.034) ng/mL Urine Appearance Cloudy H (Clear) Urine Protein 1+ H (Negative) Urine Glucose (UA) 4+ H (Negative) Urine Ketones 2+ H (Negative) Urine Blood Small H (Negative) Ur Leukocyte Esterase Large H (Negative) Urine RBC 15 H (0-5) /hpf Urine WBC >182 H (0-5) /hpf Urine WBC Clumps Many H (None) /hpf Urine Bacteria Occasional H (None) /hpf 08/10/24 08/10/24 08/10/24 Range/Units 12:23 13:50 13:50 WBC (3.8-10.6) k/uL Hgb (11.4-16.0) gm/dL Hct (34.0-46.0) % Neutrophils # (1.3-7.7) k/uL Lymphocytes # (1.0-4.8) k/uL APTT (22.0-30.0) sec VBG pH 7.18 L* (7.31-7.41) VBG HCO3 14 L (24-28) mmol/L Potassium (3.5-5.1) mmol/L Chloride (98-107) mmol/L Carbon Dioxide (22-30) mmol/L BUN (7-17) mg/dL Creatinine (0.52-1.04) mg/dL Glucose (74-99) mg/dL POC Glucose (mg/dL) 479 H (70-110) mg/dL Plasma Lactic Acid Derrick (0.7-2.0) mmol/L Phosphorus (2.5-4.5) mg/dL Magnesium (1.6-2.3) mg/dL Total Bilirubin (0.2-1.3) mg/dL AST (14-36) U/L ALT (4-34) U/L Creatine Kinase 681 H (30-135) U/L Troponin I (0.000-0.034) ng/mL Urine Appearance (Clear) Urine Protein (Negative) Urine Glucose (UA) (Negative) Urine Ketones (Negative) Urine Blood (Negative) Ur Leukocyte Esterase (Negative) Urine RBC (0-5) /hpf Urine WBC (0-5) /hpf Urine WBC Clumps (None) /hpf Urine Bacteria (None) /hpf 08/10/24 08/10/24 08/10/24 Range/Units 14:02 15:04 15:53 WBC (3.8-10.6) k/uL Hgb (11.4-16.0) gm/dL Hct (34.0-46.0) % Neutrophils # (1.3-7.7) k/uL Lymphocytes # (1.0-4.8) k/uL APTT (22.0-30.0) sec VBG pH (7.31-7.41) VBG HCO3 (24-28) mmol/L Potassium (3.5-5.1) mmol/L Chloride 113 H (98-107) mmol/L Carbon Dioxide 12 L (22-30) mmol/L BUN 77 H (7-17) mg/dL Creatinine 1.61 H (0.52-1.04) mg/dL Glucose 322 H (74-99) mg/dL POC Glucose (mg/dL) 447 H 383 H (70-110) mg/dL Plasma Lactic Acid Derrick (0.7-2.0) mmol/L Phosphorus (2.5-4.5) mg/dL Magnesium (1.6-2.3) mg/dL Total Bilirubin (0.2-1.3) mg/dL AST (14-36) U/L ALT (4-34) U/L Creatine Kinase (30-135) U/L Troponin I (0.000-0.034) ng/mL Urine Appearance (Clear) Urine Protein (Negative) Urine Glucose (UA) (Negative) Urine Ketones (Negative) Urine Blood (Negative) Ur Leukocyte Esterase (Negative) Urine RBC (0-5) /hpf Urine WBC (0-5) /hpf Urine WBC Clumps (None) /hpf Urine Bacteria (None) /hpf 08/10/24 08/10/24 Range/Units 15:53 16:21 WBC (3.8-10.6) k/uL Hgb (11.4-16.0) gm/dL Hct (34.0-46.0) % Neutrophils # (1.3-7.7) k/uL Lymphocytes # (1.0-4.8) k/uL APTT (22.0-30.0) sec VBG pH (7.31-7.41) VBG HCO3 (24-28) mmol/L Potassium (3.5-5.1) mmol/L Chloride (98-107) mmol/L Carbon Dioxide (22-30) mmol/L BUN (7-17) mg/dL Creatinine (0.52-1.04) mg/dL Glucose (74-99) mg/dL POC Glucose (mg/dL) 251 H (70-110) mg/dL Plasma Lactic Acid Derrick 2.9 H* (0.7-2.0) mmol/L Phosphorus (2.5-4.5) mg/dL Magnesium (1.6-2.3) mg/dL Total Bilirubin (0.2-1.3) mg/dL AST (14-36) U/L ALT (4-34) U/L Creatine Kinase (30-135) U/L Troponin I (0.000-0.034) ng/mL Urine Appearance (Clear) Urine Protein (Negative) Urine Glucose (UA) (Negative) Urine Ketones (Negative) Urine Blood (Negative) Ur Leukocyte Esterase (Negative) Urine RBC (0-5) /hpf Urine WBC (0-5) /hpf Urine WBC Clumps (None) /hpf Urine Bacteria (None) /hpf
[2024-08-10 17:20] LABS: Glucose,Whole Blood 242 mg/dL (70-110)
[2024-08-10 18:27] LABS: Glucose,Whole Blood 222 mg/dL (70-110)
--- NOTE | 2024-08-10 18:30 | US ---
EXAMINATION TYPE: US renals and bladder DATE OF EXAM: 08/10/2024 COMPARISON: NONE CLINICAL INDICATION: Female, 89 years old with history of SERGEY; Patient unable to wake for exam; Per p atients daughter, found on floor 3 days after fall. No know surgeries or past issues TECHNIQUE: Grayscale imaging of the bilateral kidneys and urinary bladder: FINDINGS: EXAM MEASUREMENTS: Right Kidney: 13.5 x 4.7 x 5.2 cm Left Kidney: 8.9 x 4.9 x 4.4 cm Post Void Residual Volume: NA mL Right Kidney: Multiple cystic structures seen, largest upper pole = 4.9 x 5.4 x 4.9 Left Kidney: wnl, no evidence for hydronephrosis, mass or renal calculus. Bladder: wnl Bilateral Jets seen: Left jet not seen within 5 minute period Normal Post Void Residual: NA There is no evidence for hydronephrosis at this point in time. No nephrolithiasis is seen. No eliane s are identified. The urinary bladder is anechoic. IMPRESSION: 1. Right renal cysts. 2. Asymmetry of the renal size. Consider left renal atrophy 3. Nonvisualization of the left ureteral jet. [facility], , 08/10/2024 6:27 PM
--- NOTE | 2024-08-10 18:31 | US ---
EXAMINATION TYPE: US gallbladder DATE OF EXAM: 08/10/2024 COMPARISON: NONE CLINICAL INDICATION: Female, 89 years old with history of Transaminitis; Patient unable to wake for e xam; Per patients daughter, found on floor 3 days after fall. No know surgeries or past issues TECHNIQUE: Grayscale and color Doppler imaging of the right upper quadrant was performed. FINDINGS: EXAM MEASUREMENTS: Liver Length: 15.6 cm Gallbladder Wall: 0.2 cm CBD: 0.9 cm, normal for this age Right Kidney: Dedicated Renal Ultrasound done same time cm PUTTY GLAZER NOTES: Pancreas: Tail obscured by overlying bowel gas Liver: wnl Gallbladder: Echogenic foci with posterior shadowing seen Evidence for sonographic Bermudez's sign: No CBD: Focal dilation extrahepatically Right Kidney: Dedicated Renal Ultrasound done same time IMPRESSION: Cholelithiasis. No suspicious changes to suggest acute cholecystitis. [facility], , 08/10/2024 6:28 PM
[2024-08-10 19:25] LABS: Glucose,Whole Blood 217 mg/dL (70-110)
[2024-08-10 20:46] LABS: African American GFR (CKD) 44 (>60 ml/min/1.73 sqM); Anion Gap 10 mmol/L; Blood Urea Nitrogen 74 mg/dL (7-17); Carbon Dioxide 19 mmol/L (22-30); Chloride 115 mmol/L (98-107); Glucose 218 mg/dL (74-99); Non-African American GFR(CKD) 38 (>60 ml/min/1.73 sqM); Sodium 144 mmol/L (137-145)
[2024-08-10 21:05] LABS: Glucose,Whole Blood 169 mg/dL (70-110)
[2024-08-10 21:05] LABS: Glucose,Whole Blood 246 mg/dL (70-110)
[2024-08-10 22:00] LABS: Glucose,Whole Blood 149 mg/dL (70-110)
[2024-08-10 22:58] LABS: Glucose,Whole Blood 120 mg/dL (70-110)
[2024-08-11 00:02] LABS: Glucose,Whole Blood 117 mg/dL (70-110)
[2024-08-11] MEDS: DOCUSATE 100 MG CAP PO SCH (00:06)
[2024-08-11 01:03] LABS: Glucose,Whole Blood 143 mg/dL (70-110)
[2024-08-11 01:28] LABS: African American GFR (CKD) 47 (>60 ml/min/1.73 sqM); Anion Gap 9 mmol/L; Blood Urea Nitrogen 67 mg/dL (7-17); Calcium 8.7 mg/dL (8.4-10.2); Carbon Dioxide 20 mmol/L (22-30); Chloride 117 mmol/L (98-107); Glucose 126 mg/dL (74-99); Non-African American GFR(CKD) 41 (>60 ml/min/1.73 sqM); Potassium 4.8 mmol/L (3.5-5.1); Sodium 146 mmol/L (137-145)
[2024-08-11] MEDS: APIXABAN 2.5 MG TABLET PO SCH (02:06)
[2024-08-11 02:10] LABS: Glucose,Whole Blood 189 mg/dL (70-110)
[2024-08-11] MEDS: INSULIN NPH 100 UNIT/ML 10 ML VIAL SQ ONE (02:46)
[2024-08-11 02:50] LABS: Glucose,Whole Blood 159 mg/dL (70-110)
[2024-08-11 04:58] LABS: African American GFR (CKD) 48 (>60 ml/min/1.73 sqM); Anion Gap 9 mmol/L; Blood Urea Nitrogen 60 mg/dL (7-17); Calcium 8.5 mg/dL (8.4-10.2); Carbon Dioxide 16 mmol/L (22-30); Chloride 113 mmol/L (98-107); Glucose 294 mg/dL (74-99); Non-African American GFR(CKD) 41 (>60 ml/min/1.73 sqM); Potassium 4.2 mmol/L (3.5-5.1); Sodium 138 mmol/L (137-145)
[2024-08-11 05:22] LABS: Basophils % (A) 0 %; Eosinophils % (A) 0 %; HCT 38.6 % (34.0-46.0); Lymphocytes # (A) 0.8 k/uL (1.0-4.8); Lymphocytes % (A) 5 %; MCH 29.7 pg (25.0-35.0); MCHC 31.8 g/dL (31.0-37.0); MCV 93.6 fL (80.0-100.0); Mean Platelet Volume 8.1; Monocytes # (A) 0.8 k/uL (0-1.0); Monocytes % (A) 5 %; Neutrophils # (A) 13.4 k/uL (1.3-7.7); Neutrophils % (A) 88 %; Platelet Count 215 k/uL (150-450); RBC 4.12 m/uL (3.80-5.40); RDW 13.9 % (11.5-15.5); WBC 15.2 k/uL (3.8-10.6)
[2024-08-11 05:24] LABS: HGB 12.3 gm/dL (11.4-16.0)
[2024-08-11 05:26] LABS: Glucose,Whole Blood 327 mg/dL (70-110)
[2024-08-11] MEDS: INSULIN LISPRO (HumaLOG) 100 UNIT/ML 10 mL VL SQ SCH ×2 (05:45→08:42)
[2024-08-11] MEDS: INSULIN GLARGINE (LANTUS) 100 UNIT/ML SYR SQ SCH (06:41)
[2024-08-11 08:29] LABS: African American GFR (CKD) 46 (>60 ml/min/1.73 sqM); Anion Gap 5 mmol/L; Blood Urea Nitrogen 58 mg/dL (7-17); Calcium 8.8 mg/dL (8.4-10.2); Carbon Dioxide 23 mmol/L (22-30); Chloride 114 mmol/L (98-107); Glucose 218 mg/dL (74-99); Non-African American GFR(CKD) 40 (>60 ml/min/1.73 sqM); Potassium 4.1 mmol/L (3.5-5.1); Sodium 142 mmol/L (137-145)
--- NOTE | 2024-08-11 10:49 | CT ---
EXAMINATION TYPE: CT brain wo con DATE OF EXAM: 08/11/2024 10:36 AM COMPARISON: 08/10/2024 CLINICAL INDICATION: Female, 89 years old with history of right sided weakness, RT SIDE WEAKNESS TECHNIQUE: CT of the brain is performed utilizing 3 mm thick sections through the posterior fossa and 3 mm thick sections through the remaining calvarium. Study is performed within 24 hours of arrival to the hospital. Contrast used: mL of , (none if empty) CT DLP: 1192 mGycm, Automated exposure control for dose reduction was used. FINDINGS: No abnormal hyperdensity is present to suggest an acute intracranial hemorrhage. No mass lesion is evident. No acute infarcts are evident. There is a hypodense area within the left granda radiata measuring a pproximately 1.6 x 1.1 cm. Correlate for an acute lacunar infarct. This is a change from comparison. Ventricles and sulci are mildly prominent for the patient age. Paranasal sinuses and mastoid air cells within the [id number] are clear. IMPRESSION: 1. New hypodensity in the left granda radiata. Correlate for acute lacunar infarct. 2. Chronic appearing periventricular white matter ischemic type changes with atrophy remains present. A [place] level critical message alert has been initiated for Carlyle Workman MD~[id number] via the [employer] Critical Results System on 08/11/2024 10:46 AM. This message alert has been sent to Carlyle bryan MD~[id number] via the preferences provided by the clinician for the receipt of Radiology Critical Fi ndings. Message ID [id number]. [facility], , 08/11/2024 10:46 AM
[2024-08-11] MEDS: PANTOPRAZOLE 40 MG/10 ML VIAL IV SCH (11:28)
--- NOTE | 2024-08-11 11:48 | P.CRDCN ---
History of Present Illness History of present illness: HISTORY OF PRESENTING ILLNESS This is a pleasant 89-year-old with no past medical history who presents secondary to fall and being found down on the floor in between her bed. Patient does not recall all of the events that led up to this. She states previous to this she was relatively healthy and doing fairly well. She is found to have DKA and hyperglycemia with glucose in the 500 range with hemoglobin A1c 12. She does not follow with a doctor. She was found to have new-onset of A. fib with RVR and started on Cardizem drip. She converted to normal sinus rhythm. Additionally she has been having right-sided weakness and CAT scan shows concern of acute stroke in the left granda radiata. Does not smoke, no alcohol. Family history of both mother and father having some form of CAD. She is found to have mildly elevated troponins 0.05, 0.12. REVIEW OF SYSTEMS At the time of my exam: CONSTITUTIONAL: Denies fever or chills. CARDIOVASCULAR: Denies chest pain, shortness of breath, orthopnea, PND or palpitations. RESPIRATORY: Denies cough. GASTROINTESTINAL: Denies abdominal pain, diarrhea, constipation, nausea or vomiting. MUSCULOSKELETAL: Denies myalgias. NEUROLOGIC: +right sided weakness. ENDOCRINE: Denies fatigue, weight change, polydipsia or polyurina. GENITOURINARY: Denies burning, hematuria or urgency with micturation. HEMATOLOGIC: Denies history of anemia or bleeding. PHYSICAL EXAMINATION Vital signs reviewed. CONSTITUTIONAL: No apparent distress. HEENT: Head is normocephalic. Pupils are equal, round. Sclerae anicteric. Mucous membranes of the mouth are moist. No JVD. No carotid bruit. CHEST EXAMINATION: Lungs are clear to auscultation. No chest wall tenderness is noted on palpation or with deep breathing. HEART EXAMINATION: Regular rate and rhythm. S1, S2 heard. No murmurs, gallops or rub. ABDOMEN: Soft, nontender. Positive bowel sounds. EXTREMITIES: 2+ peripheral pulses, no lower extremity edema and no calf tenderness. NEUROLOGIC EXAMINATION: Patient is awake, alert, some poor recall, +right sided weakness ASSESSMENT Non STEMI likely type II mechanism DKA Fall likely related to stroke, DKA New-onset diabetes mellitus type 2 New-onset atrial fibrillation, paroxysmal and currently normal sinus rhythm Acute kidney injury Family history of CAD Poor medical follow-up previously Acute stroke with right-sided weakness PLAN Stop Cardizem drip and transitioned to beta sapna with non-STEMI. Check 2-D echo to evaluate left ventricular function. Likely type II mechanism and especially given recent stroke likely medical therapy for non-STEMI and let she has significant angina symptoms. Atrial fibrillation likely cause of her stroke and continue Eliquis 2.5 for her weight and age, defer timing to neuro. Further recs to follow. Past Medical History Past Medical History: No Reported History History of Any Multi-Drug Resistant Organisms: None Reported Past Surgical History: No Surgical Hx Reported Past Anesthesia/Blood Transfusion Reactions: No Reported Reaction Smoking Status: Never smoker Medications and Allergies Home Medications Medication Instructions Recorded Confirmed Type No Known Home Medications 08/10/24 08/10/24 History Allergies Allergy/AdvReac Type Severity Reaction Status Date / Time No Known Allergies Allergy Verified 08/10/24 12:17 Physical Exam Vitals: Vital Signs Temp Pulse Resp BP Pulse Ox 08/11/24 07:00 63 19 106/57 96 08/11/24 06:00 64 20 121/71 99 08/11/24 05:00 64 18 103/53 98 08/11/24 04:00 99.8 F H 65 18 92/45 96 08/11/24 03:00 98 21 114/69 08/11/24 02:00 85 17 116/59 08/11/24 01:00 89 21 108/70 95 08/11/24 00:08 90 18 95/56 99 08/11/24 00:00 98.8 F 96 19 96/57 97 08/10/24 23:00 104 H 18 97/54 99 08/10/24 22:00 112 H 21 123/73 94 L 08/10/24 21:00 99.2 F 101 H 16 106/78 93 L 08/10/24 20:05 102 H 16 96/58 96 08/10/24 19:21 98 16 117/76 92 L 08/10/24 18:00 98.7 F 96 18 120/74 96 08/10/24 17:19 98 18 107/64 95 08/10/24 16:00 101 H 46 H 109/48 94 L 08/10/24 15:07 122 H 18 105/64 94 L 08/10/24 15:00 121 H 20 101/63 95 08/10/24 14:13 105 H 18 124/85 95 08/10/24 14:12 112 H 18 124/85 95 08/10/24 13:12 112 H 18 103/72 94 L 08/10/24 12:01 98.6 F 106 H 20 73/39 94 L Intake and Output 08/10/24 08/11/24 08/11/24 22:59 06:59 14:59 Intake Total 393.350 826.330 0 Output Total 1285 250 45 Balance -891.650 576.330 -45 Intake: IV 300 750 0 D5-0.45% NaCl with KCl 300 750 0 20Meq/l 1,000 ml @ 150 mls/hr IV .Q6H40M NAUN Rx# :[id number] Intake, IV Titration 93.350 76.330 Amount Diltiazem 125 mg In 41.417 73.333 Sodium Chloride 0.9% 100 ml @ Per Protocol IV .Q0M NAUN Rx#:[id number] Insulin Regular 100 unit 51.933 2.997 In Sodium Chloride 0.9% 100 ml @ 0.1 UNITS/KG/HR 5.498 mls/hr IV .[id number] NAUN Rx#:[id number] Output: Urine 1285 250 45 Uretheral ([place]) 400 Other: Voiding Method Indwelling Catheter Indwelling Catheter Weight 54.431 kg 55.2 kg 55.2 kg Results 08/11/24 04:07 08/11/24 08:01 Cardiac Enzymes 08/10/24 08/10/24 08/10/24 Range/Units 12:21 12:21 15:53 AST 51 H (14-36) U/L Troponin I 0.055 H* 0.127 H* (0.000-0.034) ng/mL Coagulation 08/10/24 Range/Units 12:21 PT 10.5 (10.0-12.5) sec APTT 19.4 L (22.0-30.0) sec CBC 08/10/24 08/11/24 Range/Units 12:21 04:07 WBC 15.2 H 15.2 H (3.8-10.6) k/uL RBC 5.30 4.12 (3.80-5.40) m/uL Hgb 16.1 H 12.3 D (11.4-16.0) gm/dL Hct 50.9 H 38.6 (34.0-46.0) % Plt Count 309 215 (150-450) k/uL Comprehensive Metabolic Panel 08/10/24 08/10/24 08/10/24 Range/Units 12:21 13:50 15:53 Sodium 140 145 (137-145) mmol/L Potassium 5.7 H 4.7 3.9 (3.5-5.1) mmol/L Chloride 104 113 H (98-107) mmol/L Carbon Dioxide 7 L* 12 L (22-30) mmol/L BUN 75 H 77 H (7-17) mg/dL Creatinine 1.92 H 1.61 H (0.52-1.04) mg/dL Glucose 530 H* 322 H (74-99) mg/dL Calcium 9.6 (8.4-10.2) mg/dL AST 51 H (14-36) U/L ALT 39 H (4-34) U/L Alkaline Phosphatase 104 (38-126) U/L Total Protein 7.0 (6.3-8.2) g/dL Albumin 4.3 (3.5-5.0) g/dL 08/10/24 08/11/24 08/11/24 Range/Units 20:11 00:08 04:07 Sodium 144 146 H 138 (137-145) mmol/L Potassium 4.0 4.8 4.2 (3.5-5.1) mmol/L Chloride 115 H 117 H 113 H (98-107) mmol/L Carbon Dioxide 19 L 20 L 16 L (22-30) mmol/L BUN 74 H 67 H 60 H (7-17) mg/dL Creatinine 1.26 H 1.19 H 1.18 H (0.52-1.04) mg/dL Glucose 218 H 126 H 294 H (74-99) mg/dL Calcium 8.7 8.5 (8.4-10.2) mg/dL AST (14-36) U/L ALT (4-34) U/L Alkaline Phosphatase (38-126) U/L Total Protein (6.3-8.2) g/dL Albumin (3.5-5.0) g/dL 08/11/24 Range/Units 08:01 Sodium 142 (137-145) mmol/L Potassium 4.1 (3.5-5.1) mmol/L Chloride 114 H (98-107) mmol/L Carbon Dioxide 23 (22-30) mmol/L BUN 58 H (7-17) mg/dL Creatinine 1.21 H (0.52-1.04) mg/dL Glucose 218 H (74-99) mg/dL Calcium 8.8 (8.4-10.2) mg/dL AST (14-36) U/L ALT (4-34) U/L Alkaline Phosphatase (38-126) U/L Total Protein (6.3-8.2) g/dL Albumin (3.5-5.0) g/dL Current Medications Generic Name Dose Route Start Last Admin Trade Name Freq PRN Reason Stop Dose Admin Acetaminophen 650 mg 08/10/24 14:43 Acetaminophen Tab 325 Mg Tab PO Q6HR PRN Fever and/or Mild Pain Apixaban 2.5 mg 08/10/24 21:00 08/11/24 11:28 Apixaban 2.5 Mg Tablet PO 2.5 mg BID NAUN Administration Protocol Dextrose/Water 25 ml 08/10/24 13:12 Dextrose 50% Syringe 50 Ml IVP PER PROTOCOL PRN Hypoglycemia Protocol Dextrose/Water 50 ml 08/10/24 13:12 Dextrose 50% Syringe 50 Ml IVP PER PROTOCOL PRN Hypoglycemia Protocol Docusate Sodium 100 mg 08/10/24 21:00 08/11/24 11:28 Docusate 100 Mg Cap PO Not Given BID NAUN Diltiazem HCl 125 mg/ Sodium 125 mls @ 0 mls/hr 08/10/24 12:30 08/11/24 04:22 Chloride IV 5 mg/hr .Q0M NAUN 5 mls/hr Titration Protocol Per Protocol Ceftriaxone Sodium 1 gm/ 50 mls @ 100 mls/hr 08/11/24 09:00 08/11/24 11:27 Sodium Chloride IVPB 100 mls/hr Q24HR [facility] Administration Protocol Insulin Glargine 16 unit 08/11/24 07:00 08/11/24 06:41 Insulin Glargine (Lantus) 100 Unit/Ml Syr 0.3 unit/kg (16 unit) 16 unit SQ Administration DAILY@0700 [facility] Insulin Human Lispro 5 unit 08/11/24 07:30 08/11/24 08:42 Insulin Lispro (Humalog) 100 Unit/Ml 10 Ml Vl 0.1 unit/kg (5 unit) Not Given SQ AC-TID [facility] Insulin Human Lispro 0 unit 08/11/24 07:30 08/11/24 05:45 Insulin Lispro (Humalog) 100 Unit/Ml 10 Ml Vl SQ 4 unit [id number] NAUN Administration Protocol Miscellaneous Information 1 each 08/10/24 13:12 Magnesium Replacement Protocol 1 Each Misc MISCELLANE DAILY PRN Per Protocol Protocol Miscellaneous Information 1 each 08/10/24 13:12 Potassium Replacement Protocol 1 Each Misc MISCELLANE DAILY PRN Per Protocol Miscellaneous Information 1 each 08/10/24 14:43 Phosphorus Replacement Protoco 1 Each Misc MISCELLANE DAILY PRN Per Protocol Protocol Naloxone HCl 0.2 mg 08/10/24 14:31 Naloxone 0.4 Mg/Ml 1 Ml Vial IV Q2M PRN Opioid Reversal Pantoprazole Sodium 40 mg 08/11/24 09:00 08/11/24 11:28 Pantoprazole 40 Mg/10 Ml Vial IV 40 mg DAILY NAUN Administration Intake and Output 08/10/24 08/11/24 08/11/24 22:59 06:59 14:59 Intake Total 393.350 826.330 0 Output Total 1285 250 45 Balance -891.650 576.330 -45 Intake: IV 300 750 0 D5-0.45% NaCl with KCl 300 750 0 20Meq/l 1,000 ml @ 150 mls/hr IV .Q6H40M NAUN Rx# :[id number] Intake, IV Titration 93.350 76.330 Amount Diltiazem 125 mg In 41.417 73.333 Sodium Chloride 0.9% 100 ml @ Per Protocol IV .Q0M NAUN Rx#:[id number] Insulin Regular 100 unit 51.933 2.997 In Sodium Chloride 0.9% 100 ml @ 0.1 UNITS/KG/HR 5.498 mls/hr IV .[id number] NAUN Rx#:[id number] Output: Urine 1285 250 45 Uretheral ([place]) 400 Other: Voiding Method Indwelling Catheter Indwelling Catheter Weight 54.431 kg 55.2 kg 55.2 kg Patient Weight 08/12/24 06:59 Weight 55.2 kg 08/11/24 04:07 02/24/25 08:01
[2024-08-11 12:20] LABS: Glucose,Whole Blood 265 mg/dL (70-110)
[2024-08-11] MEDS: METOPROLOL TARTRATE 12.5 MG TAB PO SCH (12:31)
--- NOTE | 2024-08-11 12:51 | P.PN ---
Subjective Progress Note Date: 08/11/24 89 year old F with no PMH does not follow a physician presents to the ED. Daughter and grand daughter at bedside providing majority of the history. Appears she fell while trying to get out of bed on . She was found down on Sunday. Unknown head trauma or loss of consciousness. Lives alone and ambul ates with the aid of a cane. In the ED she underwent extensive evaluation. BP 73/39, HR 106, T 98.6F, RR 22, 94% on RA. CBC, Coag panel, CMP significant for WBC 15.2, Hg 16.1, Hct 50.9, APTT 19.4, K 5.7, bicarb 7, BUN 75, Cr 1.92, glu 530, T. Bili 1.4, AST 51, ALT 39. Lactic acid 5.4. CPK 526. Trop 0.055. BNP 2310. TSH 1.64. Phos 8.3. Mag 2.6. UA large LE with > [address] head and C-spine no acute process. CXR, Knee XR no acute process. EKG A-Fib with RVR rate of 144. Patient is admitted to ICU for further workup and management. Started on insulin drip and IV hydration. Admitted to ICU. Cardiology consulted. 08/11 Patient noted to have left sided facial droop and right sided weakness this morning. She is much more awake and alert. Maintained on Cardizem drip at 5 mg/h r. Insulin drip switched to SQ insulin. CBC, BMP significant for WBC 15.2, Cl 114, BUN 58, Cr 1.21, glu 218. Trop 0.127. GB US shows cholelithiasis without cholecystitis. Renal US showed right renal cyst and left renal atrophy. STAT CT head was ordered which is positive for new hypodensity in the left gradna radiata. General: Alert and oriented Derm: warm, dry Head: atraumatic, normocephalic, symmetric Eyes: EOMI, no lid lag, anicteric sclera Mouth: no lip lesion, mucus membranes moist Cardiovascular: S1S2 reg, no murmur Lungs: Decreased BS bilateral, no rhonchi, no rales , no accessory muscle use Abdominal: soft, nontender to palpation, no guarding, no appreciable organomegaly Ext: no gross muscle atrophy, no edema, no contractures Neuro: CN 2-12 grossly intact except left sided facial droop. RU + RLE 2/5 strength, MALKA + LLE 5/5. Psych: Alert and oriented Based on my assessment of this patient, this patient meets a high complexity level of care. Acute CVA: As seen on CT head. Obtain MRI brain. Echo is ordered. Obtain carotid US. A1c 12.8. Obtain Lipid panel. Advanced neurochecks. Telemetry monitoring. PT/OT/ST. Discussed with Dr. Pozo, hold ASA for now. Start Lipitor 80 mg PO QD. Neurology consultation. DM with hyperglycemia: A1c 12.8. Lantus 16 units QD. Lispro 5 units TID. ISS with Accuchecks ACHS. Hypoglycemic precautions. Accuchecks Q6H. Sepsis possibly related to UTI: Continue Rocephin 1g IV QD. Follow UCx, BCx. Atrial fibrillation with RVR: TSH wnl. Cardizem drip at 5 mg/hr. + Metoprolol 12.5 mg PO BID. ASHISH VASC of 3. Maintain K > 4 and Mg > 2. Eliquis 2.5 mg PO BID. Echo ordered. Cardiology on board. NSTEMI: Likely type 2. No chest pain. Cardiology on board. Hyperkalemia: Resolved with IV hydration and IV insulin. Acute kidney injury: Versus CKD. IV hydration as above. Renal bladder US no obstruction. Transaminitis: Unknown etiology. Liver GB US no pathology. Resolved: DKA CODE STATUS: FULL CODE DVT Prophylaxis: Eliquis GI Prophylaxis: Protonix 40 mg IV QD. Designated medical POA if patient is not able to make medical decisions for themselves: Daughter I have reviewed the following science consultant notes: Cardiology note. I have reviewed the results of the following tests: As above. I have ordered the following tests: As above. I have discussed the care of this patient with the following independent historian: RN. I have independently interpreted the following test below: CT brain. I have discussed the management of this patient with the following physician: Dr. Pozo Objective - Vital Signs Vital signs: Vital Signs Temp 99.8 F H 08/11/24 04:00 Pulse 63 08/11/24 07:00 Resp 19 08/11/24 07:00 BP 106/57 08/11/24 07:00 Pulse Ox 96 08/11/24 07:00 FiO2 Intake & Output 08/10/24 08/11/24 08/11/24 18:59 06:59 18:59 Intake Total 12.187 1207.493 0 Output Total 400 1135 45 Balance -387.813 72.493 -45 Weight 54.431 kg 55.2 kg 55.2 kg Intake: IV 1050 0 D5-0.45% NaCl with KCl 1050 0 20Meq/l 1,000 ml @ 150 mls/hr IV .Q6H40M NAUN Rx# :[id number] Intake, IV Titration 12.187 157.493 Amount Diltiazem 125 mg In 114.750 Sodium Chloride 0.9% 100 ml @ Per Protocol IV .Q0M NAUN Rx#:[id number] Insulin Regular 100 unit 12.187 42.743 In Sodium Chloride 0.9% 100 ml @ 0.1 UNITS/KG/HR 5.498 mls/hr IV .[id number] NAUN Rx#:[id number] Output: Urine 400 1135 45 Uretheral ([place]) 400 Other: Voiding Method Indwelling Catheter - Labs CBC & Chem 7: 08/11/24 04:07 08/11/24 08:01 Labs: Abnormal Lab Results - Last 24 Hours (Table) 08/10/24 08/10/24 08/10/24 Range/Units 12:21 12:21 12:21 WBC (3.8-10.6) k/uL Neutrophils # (1.3-7.7) k/uL Lymphocytes # (1.0-4.8) k/uL APTT 19.4 L (22.0-30.0) sec VBG pH (7.31-7.41) VBG HCO3 (24-28) mmol/L Sodium (137-145) mmol/L Potassium 5.7 H (3.5-5.1) mmol/L Chloride (98-107) mmol/L Carbon Dioxide 7 L* (22-30) mmol/L BUN 75 H (7-17) mg/dL Creatinine 1.92 H (0.52-1.04) mg/dL Glucose 530 H* (74-99) mg/dL POC Glucose (mg/dL) (70-110) mg/dL Hemoglobin A1c (<=6.0) % Plasma Lactic Acid Derrick 5.4 H* (0.7-2.0) mmol/L Phosphorus 8.3 H (2.5-4.5) mg/dL Magnesium 2.6 H (1.6-2.3) mg/dL Total Bilirubin 1.4 H (0.2-1.3) mg/dL AST 51 H (14-36) U/L ALT 39 H (4-34) U/L Creatine Kinase 524 H (30-135) U/L Troponin I (0.000-0.034) ng/mL 08/10/24 08/10/24 08/10/24 Range/Units 12:21 12:21 13:50 WBC (3.8-10.6) k/uL Neutrophils # (1.3-7.7) k/uL Lymphocytes # (1.0-4.8) k/uL APTT (22.0-30.0) sec VBG pH 7.18 L* (7.31-7.41) VBG HCO3 14 L (24-28) mmol/L Sodium (137-145) mmol/L Potassium (3.5-5.1) mmol/L Chloride (98-107) mmol/L Carbon Dioxide (22-30) mmol/L BUN (7-17) mg/dL Creatinine (0.52-1.04) mg/dL Glucose (74-99) mg/dL POC Glucose (mg/dL) (70-110) mg/dL Hemoglobin A1c 12.8 H (<=6.0) % Plasma Lactic Acid Derrick (0.7-2.0) mmol/L Phosphorus (2.5-4.5) mg/dL Magnesium (1.6-2.3) mg/dL Total Bilirubin (0.2-1.3) mg/dL AST (14-36) U/L ALT (4-34) U/L Creatine Kinase (30-135) U/L Troponin I 0.055 H* (0.000-0.034) ng/mL 08/10/24 08/10/24 08/10/24 Range/Units 13:50 14:02 15:04 WBC (3.8-10.6) k/uL Neutrophils # (1.3-7.7) k/uL Lymphocytes # (1.0-4.8) k/uL APTT (22.0-30.0) sec VBG pH (7.31-7.41) VBG HCO3 (24-28) mmol/L Sodium (137-145) mmol/L Potassium (3.5-5.1) mmol/L Chloride (98-107) mmol/L Carbon Dioxide (22-30) mmol/L BUN (7-17) mg/dL Creatinine (0.52-1.04) mg/dL Glucose (74-99) mg/dL POC Glucose (mg/dL) 447 H 383 H (70-110) mg/dL Hemoglobin A1c (<=6.0) % Plasma Lactic Acid Derrick (0.7-2.0) mmol/L Phosphorus (2.5-4.5) mg/dL Magnesium (1.6-2.3) mg/dL Total Bilirubin (0.2-1.3) mg/dL AST (14-36) U/L ALT (4-34) U/L Creatine Kinase 681 H (30-135) U/L Troponin I (0.000-0.034) ng/mL 08/10/24 08/10/24 08/10/24 Range/Units 15:53 15:53 15:53 WBC (3.8-10.6) k/uL Neutrophils # (1.3-7.7) k/uL Lymphocytes # (1.0-4.8) k/uL APTT (22.0-30.0) sec VBG pH (7.31-7.41) VBG HCO3 (24-28) mmol/L Sodium (137-145) mmol/L Potassium (3.5-5.1) mmol/L Chloride 113 H (98-107) mmol/L Carbon Dioxide 12 L (22-30) mmol/L BUN 77 H (7-17) mg/dL Creatinine 1.61 H (0.52-1.04) mg/dL Glucose 322 H (74-99) mg/dL POC Glucose (mg/dL) (70-110) mg/dL Hemoglobin A1c (<=6.0) % Plasma Lactic Acid Derrick 2.9 H* (0.7-2.0) mmol/L Phosphorus (2.5-4.5) mg/dL Magnesium (1.6-2.3) mg/dL Total Bilirubin (0.2-1.3) mg/dL AST (14-36) U/L ALT (4-34) U/L Creatine Kinase (30-135) U/L Troponin I 0.127 H* (0.000-0.034) ng/mL 08/10/24 08/10/24 08/10/24 Range/Units 16:21 17:18 18:20 WBC (3.8-10.6) k/uL Neutrophils # (1.3-7.7) k/uL Lymphocytes # (1.0-4.8) k/uL APTT (22.0-30.0) sec VBG pH (7.31-7.41) VBG HCO3 (24-28) mmol/L Sodium (137-145) mmol/L Potassium (3.5-5.1) mmol/L Chloride (98-107) mmol/L Carbon Dioxide (22-30) mmol/L BUN (7-17) mg/dL Creatinine (0.52-1.04) mg/dL Glucose (74-99) mg/dL POC Glucose (mg/dL) 251 H 242 H 222 H (70-110) mg/dL Hemoglobin A1c (<=6.0) % Plasma Lactic Acid Derrick (0.7-2.0) mmol/L Phosphorus (2.5-4.5) mg/dL Magnesium (1.6-2.3) mg/dL Total Bilirubin (0.2-1.3) mg/dL AST (14-36) U/L ALT (4-34) U/L Creatine Kinase (30-135) U/L Troponin I (0.000-0.034) ng/mL 08/10/24 08/10/24 08/10/24 Range/Units 18:41 19:23 20:11 WBC (3.8-10.6) k/uL Neutrophils # (1.3-7.7) k/uL Lymphocytes # (1.0-4.8) k/uL APTT (22.0-30.0) sec VBG pH (7.31-7.41) VBG HCO3 (24-28) mmol/L Sodium (137-145) mmol/L Potassium (3.5-5.1) mmol/L Chloride 115 H (98-107) mmol/L Carbon Dioxide 19 L (22-30) mmol/L BUN 74 H (7-17) mg/dL Creatinine 1.26 H (0.52-1.04) mg/dL Glucose 218 H (74-99) mg/dL POC Glucose (mg/dL) 217 H (70-110) mg/dL Hemoglobin A1c (<=6.0) % Plasma Lactic Acid Derrick 3.2 H* (0.7-2.0) mmol/L Phosphorus (2.5-4.5) mg/dL Magnesium (1.6-2.3) mg/dL Total Bilirubin (0.2-1.3) mg/dL AST (14-36) U/L ALT (4-34) U/L Creatine Kinase (30-135) U/L Troponin I (0.000-0.034) ng/mL 08/10/24 08/10/24 08/10/24 Range/Units 20:28 21:04 21:37 WBC (3.8-10.6) k/uL Neutrophils # (1.3-7.7) k/uL Lymphocytes # (1.0-4.8) k/uL APTT (22.0-30.0) sec VBG pH (7.31-7.41) VBG HCO3 (24-28) mmol/L Sodium (137-145) mmol/L Potassium (3.5-5.1) mmol/L Chloride (98-107) mmol/L Carbon Dioxide (22-30) mmol/L BUN (7-17) mg/dL Creatinine (0.52-1.04) mg/dL Glucose (74-99) mg/dL POC Glucose (mg/dL) 246 H 169 H (70-110) mg/dL Hemoglobin A1c (<=6.0) % Plasma Lactic Acid Derrick 2.5 H* (0.7-2.0) mmol/L Phosphorus (2.5-4.5) mg/dL Magnesium (1.6-2.3) mg/dL Total Bilirubin (0.2-1.3) mg/dL AST (14-36) U/L ALT (4-34) U/L Creatine Kinase (30-135) U/L Troponin I (0.000-0.034) ng/mL 08/10/24 08/10/24 08/11/24 Range/Units 21:58 22:57 00:01 WBC (3.8-10.6) k/uL Neutrophils # (1.3-7.7) k/uL Lymphocytes # (1.0-4.8) k/uL APTT (22.0-30.0) sec VBG pH (7.31-7.41) VBG HCO3 (24-28) mmol/L Sodium (137-145) mmol/L Potassium (3.5-5.1) mmol/L Chloride (98-107) mmol/L Carbon Dioxide (22-30) mmol/L BUN (7-17) mg/dL Creatinine (0.52-1.04) mg/dL Glucose (74-99) mg/dL POC Glucose (mg/dL) 149 H 120 H 117 H (70-110) mg/dL Hemoglobin A1c (<=6.0) % Plasma Lactic Acid Derrick (0.7-2.0) mmol/L Phosphorus (2.5-4.5) mg/dL Magnesium (1.6-2.3) mg/dL Total Bilirubin (0.2-1.3) mg/dL AST (14-36) U/L ALT (4-34) U/L Creatine Kinase (30-135) U/L Troponin I (0.000-0.034) ng/mL 08/11/24 08/11/24 08/11/24 Range/Units 00:08 01:02 02:09 WBC (3.8-10.6) k/uL Neutrophils # (1.3-7.7) k/uL Lymphocytes # (1.0-4.8) k/uL APTT (22.0-30.0) sec VBG pH (7.31-7.41) VBG HCO3 (24-28) mmol/L Sodium 146 H (137-145) mmol/L Potassium (3.5-5.1) mmol/L Chloride 117 H (98-107) mmol/L Carbon Dioxide 20 L (22-30) mmol/L BUN 67 H (7-17) mg/dL Creatinine 1.19 H (0.52-1.04) mg/dL Glucose 126 H (74-99) mg/dL POC Glucose (mg/dL) 143 H 189 H (70-110) mg/dL Hemoglobin A1c (<=6.0) % Plasma Lactic Acid Derrick (0.7-2.0) mmol/L Phosphorus (2.5-4.5) mg/dL Magnesium (1.6-2.3) mg/dL Total Bilirubin (0.2-1.3) mg/dL AST (14-36) U/L ALT (4-34) U/L Creatine Kinase (30-135) U/L Troponin I (0.000-0.034) ng/mL 08/11/24 08/11/24 08/11/24 Range/Units 02:48 04:07 04:07 WBC 15.2 H (3.8-10.6) k/uL Neutrophils # 13.4 H (1.3-7.7) k/uL Lymphocytes # 0.8 L (1.0-4.8) k/uL APTT (22.0-30.0) sec VBG pH (7.31-7.41) VBG HCO3 (24-28) mmol/L Sodium (137-145) mmol/L Potassium (3.5-5.1) mmol/L Chloride 113 H (98-107) mmol/L Carbon Dioxide 16 L (22-30) mmol/L BUN 60 H (7-17) mg/dL Creatinine 1.18 H (0.52-1.04) mg/dL Glucose 294 H (74-99) mg/dL POC Glucose (mg/dL) 159 H (70-110) mg/dL Hemoglobin A1c (<=6.0) % Plasma Lactic Acid Derrick (0.7-2.0) mmol/L Phosphorus (2.5-4.5) mg/dL Magnesium (1.6-2.3) mg/dL Total Bilirubin (0.2-1.3) mg/dL AST (14-36) U/L ALT (4-34) U/L Creatine Kinase (30-135) U/L Troponin I (0.000-0.034) ng/mL 08/11/24 08/11/24 08/11/24 Range/Units 05:25 08:01 12:19 WBC (3.8-10.6) k/uL Neutrophils # (1.3-7.7) k/uL Lymphocytes # (1.0-4.8) k/uL APTT (22.0-30.0) sec VBG pH (7.31-7.41) VBG HCO3 (24-28) mmol/L Sodium (137-145) mmol/L Potassium (3.5-5.1) mmol/L Chloride 114 H (98-107) mmol/L Carbon Dioxide (22-30) mmol/L BUN 58 H (7-17) mg/dL Creatinine 1.21 H (0.52-1.04) mg/dL Glucose 218 H (74-99) mg/dL POC Glucose (mg/dL) 327 H 265 H (70-110) mg/dL Hemoglobin A1c (<=6.0) % Plasma Lactic Acid Derrick (0.7-2.0) mmol/L Phosphorus (2.5-4.5) mg/dL Magnesium (1.6-2.3) mg/dL Total Bilirubin (0.2-1.3) mg/dL AST (14-36) U/L ALT (4-34) U/L Creatine Kinase (30-135) U/L Troponin I (0.000-0.034) ng/mL
--- NOTE | 2024-08-11 14:06 | P.PN ---
Subjective Progress Note Date: 08/11/24 Principal diagnosis: Acute diabetic ketoacidosis 89-year-old female patient presented to the ED after being found on the floor at home. The patient was feeling weak and she stated that she was unable to get up and carry herself. She was unable to stand. No reported injuries. Workup was done in the ED and the patient was found to have hyperglycemia with a glucose of 530. Acute kidney injury with a BUN of 75 and a creatinine of 1.9. She had a anion gap metabolic acidosis with a gap of 29 and serum bicarb of 7. Sodium was at 140. Lactic acid level was at 5.4. CPK was 524. LFTs showed a bilirubin of 1.4. Calcium levels at 9.6. proBNP level is 2310. UA showed plus for glucose, +2 ketones and multiple WBCs. Serum acetone was positive. White cell count was at 15.2 with a hemoglobin of 16.1 and platelet count of 309. Chest x-ray showed small hiatal hernia without any acute abnormalities. X-ray of the knee showed no fracture and CAT scan of the head and h cervical spine showed no fractures. Chronic appearing periventricular white matter disease was noted along with some atrophy. Based on that, the patient was started on IV fluids, given 2 L bolus and the patient is currently on normal saline at rate of 200 cc an hour and the patient was started on insulin drip at 0.1 units/kg/h. Patient was also noted to be an atrial fibrillation with rapid ventricular response. The heart rate was 144 initially and improved with fluid resuscitation. She was hypotensive initially with a blood pressure of 73/39 and her most recent heart rate shows improvement with a rate of 122 and a BP of 105/64. She remains on room air oxygen with a pulse ox of 94%. Based on that, and the intensive care unit consultation was requested. Patient was seen today on 08/11/2024, remains in the ICU, patient seems to be recovering from her acute diabetic ketoacidosis, acute kidney injury, acute rhabdomyolysis, and acute urinary tract infection, however the patient developed what seems to be a picture of acute CVA. Patient developed sudden onset of right-sided weakness and facial asymmetry, underwent CT scan of the brain, there is a new hypodensity in the left gradna radiata consistent with acute lacunar infarct. Patient is to be seen by neurology on consultation. Hence I am keeping the patient in the ICU today. Patient was also seen by cardiology for new onset atrial fibrillation/paroxysmal and the recommendation was to stop Cardizem and start patient on beta-sapna and a 2D echo is pending. It is felt that her atrial fibrillation most likely caused her CVA. And she is on Eliquis at 2.5 mg twice daily. Again the patient is yet to be seen by neurology today. Labs today were reviewed her electrolytes are normal BUN is 58 creatinine 1.21, blood sugar is 265. Objective - Vital Signs Vital signs: Vital Signs Temp 99.1 F 08/11/24 12:00 Pulse 67 08/11/24 13:00 Resp 22 08/11/24 13:00 BP 150/67 08/11/24 13:00 Pulse Ox 93 L 08/11/24 13:00 FiO2 Intake & Output 08/10/24 08/11/24 08/11/24 18:59 06:59 18:59 Intake Total 12.187 1207.493 50 Output Total 400 1135 230 Balance -387.813 72.493 -180 Weight 54.431 kg 55.2 kg 55.2 kg Intake: IV 1050 0 D5-0.45% NaCl with KCl 1050 0 20Meq/l 1,000 ml @ 150 mls/hr IV .Q6H40M [facility] Rx# :[id number] Intake, IV Titration 12.187 157.493 50 Amount Diltiazem 125 mg In 114.750 Sodium Chloride 0.9% 100 ml @ Per Protocol IV .Q0M [facility] Rx#:[id number] Insulin Regular 100 unit 12.187 42.743 In Sodium Chloride 0.9% 100 ml @ 0.1 UNITS/KG/HR 5.498 mls/hr IV .[id number] [facility] Rx#:[id number] cefTRIAXone 1 gm In 50 Sodium Chloride 0.9% 50 ml @ 100 mls/hr IVPB Q24HR [facility] Rx#:[id number] Output: Urine 400 1135 230 Uretheral ([place]) 400 Other: Voiding Method Indwelling Catheter - Exam General: Revealed 89-year-old female on room air, pleasant, does not seem to be in respiratory distress. Derm: Dry, no rashes. Warm Head: atraumatic, normocephalic, there is evidence of facial asymmetry, with left facial droop. Eyes: EOMI, no lid lag, anicteric sclera Mouth: no lip lesion, mucus membranes moist Cardiovascular: S1S2 reg, no murmur Lungs: Clear bilaterally no rhonchi no wheezes Abdominal: Soft nontender no MAG no rebound no guarding. Ext: no gross muscle atrophy, no edema, no contractures Neuro: CN 2-12 grossly intact except left sided facial droop. RU + RLE 2/5 strength, MALKA + LLE 5/5. Psych: Alert and oriented - Labs CBC & Chem 7: 08/11/24 04:07 08/11/24 08:01 Labs: Abnormal Lab Results - Last 24 Hours (Table) 08/10/24 08/10/24 08/10/24 Range/Units 12:21 13:50 13:50 WBC (3.8-10.6) k/uL Neutrophils # (1.3-7.7) k/uL Lymphocytes # (1.0-4.8) k/uL VBG pH 7.18 L* (7.31-7.41) VBG HCO3 14 L (24-28) mmol/L Sodium (137-145) mmol/L Chloride (98-107) mmol/L Carbon Dioxide (22-30) mmol/L BUN (7-17) mg/dL Creatinine (0.52-1.04) mg/dL Glucose (74-99) mg/dL POC Glucose (mg/dL) (70-110) mg/dL Hemoglobin A1c 12.8 H (<=6.0) % Plasma Lactic Acid Derrick (0.7-2.0) mmol/L Creatine Kinase 681 H (30-135) U/L Troponin I (0.000-0.034) ng/mL 08/10/24 08/10/24 08/10/24 Range/Units 14:02 15:04 15:53 WBC (3.8-10.6) k/uL Neutrophils # (1.3-7.7) k/uL Lymphocytes # (1.0-4.8) k/uL VBG pH (7.31-7.41) VBG HCO3 (24-28) mmol/L Sodium (137-145) mmol/L Chloride (98-107) mmol/L Carbon Dioxide (22-30) mmol/L BUN (7-17) mg/dL Creatinine (0.52-1.04) mg/dL Glucose (74-99) mg/dL POC Glucose (mg/dL) 447 H 383 H (70-110) mg/dL Hemoglobin A1c (<=6.0) % Plasma Lactic Acid Derrick (0.7-2.0) mmol/L Creatine Kinase (30-135) U/L Troponin I 0.127 H* (0.000-0.034) ng/mL 08/10/24 08/10/24 08/10/24 Range/Units 15:53 15:53 16:21 WBC (3.8-10.6) k/uL Neutrophils # (1.3-7.7) k/uL Lymphocytes # (1.0-4.8) k/uL VBG pH (7.31-7.41) VBG HCO3 (24-28) mmol/L Sodium (137-145) mmol/L Chloride 113 H (98-107) mmol/L Carbon Dioxide 12 L (22-30) mmol/L BUN 77 H (7-17) mg/dL Creatinine 1.61 H (0.52-1.04) mg/dL Glucose 322 H (74-99) mg/dL POC Glucose (mg/dL) 251 H (70-110) mg/dL Hemoglobin A1c (<=6.0) % Plasma Lactic Acid Derrick 2.9 H* (0.7-2.0) mmol/L Creatine Kinase (30-135) U/L Troponin I (0.000-0.034) ng/mL 08/10/24 08/10/24 08/10/24 Range/Units 17:18 18:20 18:41 WBC (3.8-10.6) k/uL Neutrophils # (1.3-7.7) k/uL Lymphocytes # (1.0-4.8) k/uL VBG pH (7.31-7.41) VBG HCO3 (24-28) mmol/L Sodium (137-145) mmol/L Chloride (98-107) mmol/L Carbon Dioxide (22-30) mmol/L BUN (7-17) mg/dL Creatinine (0.52-1.04) mg/dL Glucose (74-99) mg/dL POC Glucose (mg/dL) 242 H 222 H (70-110) mg/dL Hemoglobin A1c (<=6.0) % Plasma Lactic Acid Derrick 3.2 H* (0.7-2.0) mmol/L Creatine Kinase (30-135) U/L Troponin I (0.000-0.034) ng/mL 08/10/24 08/10/24 08/10/24 Range/Units 19:23 20:11 20:28 WBC (3.8-10.6) k/uL Neutrophils # (1.3-7.7) k/uL Lymphocytes # (1.0-4.8) k/uL VBG pH (7.31-7.41) VBG HCO3 (24-28) mmol/L Sodium (137-145) mmol/L Chloride 115 H (98-107) mmol/L Carbon Dioxide 19 L (22-30) mmol/L BUN 74 H (7-17) mg/dL Creatinine 1.26 H (0.52-1.04) mg/dL Glucose 218 H (74-99) mg/dL POC Glucose (mg/dL) 217 H 246 H (70-110) mg/dL Hemoglobin A1c (<=6.0) % Plasma Lactic Acid Derrick (0.7-2.0) mmol/L Creatine Kinase (30-135) U/L Troponin I (0.000-0.034) ng/mL 08/10/24 08/10/24 08/10/24 Range/Units 21:04 21:37 21:58 WBC (3.8-10.6) k/uL Neutrophils # (1.3-7.7) k/uL Lymphocytes # (1.0-4.8) k/uL VBG pH (7.31-7.41) VBG HCO3 (24-28) mmol/L Sodium (137-145) mmol/L Chloride (98-107) mmol/L Carbon Dioxide (22-30) mmol/L BUN (7-17) mg/dL Creatinine (0.52-1.04) mg/dL Glucose (74-99) mg/dL POC Glucose (mg/dL) 169 H 149 H (70-110) mg/dL Hemoglobin A1c (<=6.0) % Plasma Lactic Acid Derrick 2.5 H* (0.7-2.0) mmol/L Creatine Kinase (30-135) U/L Troponin I (0.000-0.034) ng/mL 08/10/24 08/11/24 08/11/24 Range/Units 22:57 00:01 00:08 WBC (3.8-10.6) k/uL Neutrophils # (1.3-7.7) k/uL Lymphocytes # (1.0-4.8) k/uL VBG pH (7.31-7.41) VBG HCO3 (24-28) mmol/L Sodium 146 H (137-145) mmol/L Chloride 117 H (98-107) mmol/L Carbon Dioxide 20 L (22-30) mmol/L BUN 67 H (7-17) mg/dL Creatinine 1.19 H (0.52-1.04) mg/dL Glucose 126 H (74-99) mg/dL POC Glucose (mg/dL) 120 H 117 H (70-110) mg/dL Hemoglobin A1c (<=6.0) % Plasma Lactic Acid Derrick (0.7-2.0) mmol/L Creatine Kinase (30-135) U/L Troponin I (0.000-0.034) ng/mL 08/11/24 08/11/24 08/11/24 Range/Units 01:02 02:09 02:48 WBC (3.8-10.6) k/uL Neutrophils # (1.3-7.7) k/uL Lymphocytes # (1.0-4.8) k/uL VBG pH (7.31-7.41) VBG HCO3 (24-28) mmol/L Sodium (137-145) mmol/L Chloride (98-107) mmol/L Carbon Dioxide (22-30) mmol/L BUN (7-17) mg/dL Creatinine (0.52-1.04) mg/dL Glucose (74-99) mg/dL POC Glucose (mg/dL) 143 H 189 H 159 H (70-110) mg/dL Hemoglobin A1c (<=6.0) % Plasma Lactic Acid Derrick (0.7-2.0) mmol/L Creatine Kinase (30-135) U/L Troponin I (0.000-0.034) ng/mL 08/11/24 08/11/24 08/11/24 Range/Units 04:07 04:07 05:25 WBC 15.2 H (3.8-10.6) k/uL Neutrophils # 13.4 H (1.3-7.7) k/uL Lymphocytes # 0.8 L (1.0-4.8) k/uL VBG pH (7.31-7.41) VBG HCO3 (24-28) mmol/L Sodium (137-145) mmol/L Chloride 113 H (98-107) mmol/L Carbon Dioxide 16 L (22-30) mmol/L BUN 60 H (7-17) mg/dL Creatinine 1.18 H (0.52-1.04) mg/dL Glucose 294 H (74-99) mg/dL POC Glucose (mg/dL) 327 H (70-110) mg/dL Hemoglobin A1c (<=6.0) % Plasma Lactic Acid Derrick (0.7-2.0) mmol/L Creatine Kinase (30-135) U/L Troponin I (0.000-0.034) ng/mL 08/11/24 08/11/24 Range/Units 08:01 12:19 WBC (3.8-10.6) k/uL Neutrophils # (1.3-7.7) k/uL Lymphocytes # (1.0-4.8) k/uL VBG pH (7.31-7.41) VBG HCO3 (24-28) mmol/L Sodium (137-145) mmol/L Chloride 114 H (98-107) mmol/L Carbon Dioxide (22-30) mmol/L BUN 58 H (7-17) mg/dL Creatinine 1.21 H (0.52-1.04) mg/dL Glucose 218 H (74-99) mg/dL POC Glucose (mg/dL) 265 H (70-110) mg/dL Hemoglobin A1c (<=6.0) % Plasma Lactic Acid Derrick (0.7-2.0) mmol/L Creatine Kinase (30-135) U/L Troponin I (0.000-0.034) ng/mL Assessment and Plan Assessment: Impression: Acute CVA with right-sided weakness most likely secondary to her new onset atrial fibrillation Acute DKA with hyperglycemia and anion gap metabolic acidosis, resolved Acute kidney injury likely secondary to intravascular volume depletion and dehydration Atrial fibrillation with rapid ventricular response Mild rhabdomyolysis secondary to above. The patient had collapsed on the floor for several days Suspected UTI Mild leukocytosis Recommendation: Continue to monitor in the ICU specially with her new CVA findings Neurology to see in consultation Continue Eliquis Continue Levemir insulin and sliding scale insulin Continue to monitor electrolytes and glucose Continue to monitor renal profile Continue Rocephin empirically for possible UTI Patient is now off Cardizem placed on beta-blockers as per cardiology Reviewed the results of her CT of the brain Reviewed her labs We will continue to monitor in the ICU for now and will continue to follow Time with Patient: Less than 30
--- NOTE | 2024-08-11 14:12 | P.CNNES ---
History of Present Illness Consult date: 08/11/24 Requesting physician: Yohana Logan Reason for Consult: right sided weakness History of Present Illness: This is a 89 year-old woman who presents to the emergency department on 08/10/2024 since was found on the floor at home. Patient is not great historian. But it seems the patient was feeling weak and unable to get up and carry her self, stand up. While in the ED she was found to be in DKA. She was noted to have right sided weakness in our facility. Patient denies any history of stroke. She denies following-up with a PCP for at least 10 years. During this hospital visit was noted to be in A-fib and was started on eliquis. Per the nurse she is having right sided weakness and difficulty swallowing. Patient denies being on ASA daily. Her initial CT head is reported as negative for stroke while on repeat it shows lacunar stroke. Some of work-up during this hospital visit consisted of: HbA1c: 12.8 U/A seems concerning for acute UTI. I reviewed rest of lab work-up CT head: No acute intracranial process. I personally reviewed CT head and patient has lacunar on left basal ganglia but unsure chronicity. CT Cervical: No acute osseous abnormality. Repeat CT head: New hypodenisity in left granda radiata. Correlate for acute lacunar infarct. Review of Systems Limited but as per HPI. Past Medical History Past Medical History: No Reported History History of Any Multi-Drug Resistant Organisms: None Reported Past Surgical History: No Surgical Hx Reported Past Anesthesia/Blood Transfusion Reactions: No Reported Reaction Smoking Status: Never smoker Medications and Allergies Home Medications Medication Instructions Recorded Confirmed Type No Known Home Medications 08/10/24 08/10/24 History Allergies Allergy/AdvReac Type Severity Reaction Status Date / Time No Known Allergies Allergy Verified 08/10/24 12:17 Physical Examination - Vital Signs Vital Signs: Vital Signs Temp Pulse Resp BP Pulse Ox 08/11/24 13:00 67 22 150/67 93 L 08/11/24 12:00 99.1 F 75 19 146/80 93 L 08/11/24 11:00 74 18 147/82 92 L 08/11/24 10:00 76 22 131/67 08/11/24 09:00 75 16 154/66 08/11/24 08:00 97.5 F L 69 22 133/104 99 02/24/25 07:00 63 19 106/57 96 08/11/24 06:00 64 20 121/71 99 08/11/24 05:00 64 18 103/53 98 08/11/24 04:00 99.8 F H 65 18 92/45 96 08/11/24 03:00 98 21 114/69 08/11/24 02:00 85 17 116/59 08/11/24 01:00 89 21 108/70 95 08/11/24 00:08 90 18 95/56 99 08/11/24 00:00 98.8 F 96 19 96/57 97 08/10/24 23:00 104 H 18 97/54 99 08/10/24 22:00 112 H 21 123/73 94 L 08/10/24 21:00 99.2 F 101 H 16 106/78 93 L 08/10/24 20:05 102 H 16 96/58 96 08/10/24 19:21 98 16 117/76 92 L 08/10/24 18:00 98.7 F 96 18 120/74 96 08/10/24 17:19 98 18 107/64 95 08/10/24 16:00 101 H 46 H 109/48 94 L 08/10/24 15:07 122 H 18 105/64 94 L 08/10/24 15:00 121 H 20 101/63 95 08/10/24 14:13 105 H 18 124/85 95 08/10/24 14:12 112 H 18 124/85 95 Intake and Output 08/10/24 08/11/24 08/11/24 22:59 06:59 14:59 Intake Total 393.350 826.330 50 Output Total 1285 250 230 Balance -891.650 576.330 -180 Intake: IV 300 750 0 D5-0.45% NaCl with KCl 300 750 0 20Meq/l 1,000 ml @ 150 mls/hr IV .Q6H40M [facility] Rx# :[id number] Intake, IV Titration 93.350 76.330 50 Amount Diltiazem 125 mg In 41.417 73.333 Sodium Chloride 0.9% 100 ml @ Per Protocol IV .Q0M [facility] Rx#:[id number] Insulin Regular 100 unit 51.933 2.997 In Sodium Chloride 0.9% 100 ml @ 0.1 UNITS/KG/HR 5.498 mls/hr IV .[id number] [facility] Rx#:[id number] cefTRIAXone 1 gm In 50 Sodium Chloride 0.9% 50 ml @ 100 mls/hr IVPB Q24HR [facility] Rx#:[id number] Output: Urine 1285 250 230 Uretheral ([place]) 400 Other: Voiding Method Indwelling Catheter Indwelling Catheter Weight 54.431 kg 55.2 kg 55.2 kg General: Lying in bed and is not in acute distress. Neuro: The patient is awake, alert, oriented to self, place and time. Is following simple commands. No aphasia. Pupils are round, 4mm, reactive to light. Visual benedict are full to confrontation throughout. EOM intact and no nystagmus. Normal facial sensation to touch throughout. Has right lower facial weakness. Has moderate dysarthria. Tongue is midline and moves side to side without difficulty. Motor: Strength in uppers: Right upper is 3-4, right lower is 2 proximally while distally is 3. Left side is 5/5. Sensation: Normal to touch throughout. Plantars: Right is upgoing at baseline. Left is mute. Results - Laboratory Findings CBC and BMP: 08/11/24 04:07 08/11/24 08:01 Abnormal Lab Findings: Abnormal Labs 08/10/24 08/10/24 08/10/24 12:21 12:21 12:21 WBC 15.2 H Hgb 16.1 H Hct 50.9 H Neutrophils # 13.7 H Lymphocytes # 0.5 L APTT 19.4 L VBG pH VBG HCO3 Sodium Potassium 5.7 H Chloride Carbon Dioxide 7 L* BUN 75 H Creatinine 1.92 H Glucose 530 H* POC Glucose (mg/dL) Hemoglobin A1c Plasma Lactic Acid Derrick Phosphorus 8.3 H Magnesium 2.6 H Total Bilirubin 1.4 H AST 51 H ALT 39 H Creatine Kinase 524 H Troponin I Urine Appearance Urine Protein Urine Glucose (UA) Urine Ketones Urine Blood Ur Leukocyte Esterase Urine RBC Urine WBC Urine WBC Clumps Urine Bacteria 08/10/24 08/10/24 08/10/24 12:21 12:21 12:21 WBC Hgb Hct Neutrophils # Lymphocytes # APTT VBG pH VBG HCO3 Sodium Potassium Chloride Carbon Dioxide BUN Creatinine Glucose POC Glucose (mg/dL) Hemoglobin A1c Plasma Lactic Acid Derrick 5.4 H* Phosphorus Magnesium Total Bilirubin AST ALT Creatine Kinase Troponin I 0.055 H* Urine Appearance Cloudy H Urine Protein 1+ H Urine Glucose (UA) 4+ H Urine Ketones 2+ H Urine Blood Small H Ur Leukocyte Esterase Large H Urine RBC 15 H Urine WBC >182 H Urine WBC Clumps Many H Urine Bacteria Occasional H 08/10/24 08/10/24 08/10/24 12:21 12:23 13:50 WBC Hgb Hct Neutrophils # Lymphocytes # APTT VBG pH 7.18 L* VBG HCO3 14 L Sodium Potassium Chloride Carbon Dioxide BUN Creatinine Glucose POC Glucose (mg/dL) 479 H Hemoglobin A1c 12.8 H Plasma Lactic Acid Derrick Phosphorus Magnesium Total Bilirubin AST ALT Creatine Kinase Troponin I Urine Appearance Urine Protein Urine Glucose (UA) Urine Ketones Urine Blood Ur Leukocyte Esterase Urine RBC Urine WBC Urine WBC Clumps Urine Bacteria 08/10/24 08/10/24 08/10/24 13:50 14:02 15:04 WBC Hgb Hct Neutrophils # Lymphocytes # APTT VBG pH VBG HCO3 Sodium Potassium Chloride Carbon Dioxide BUN Creatinine Glucose POC Glucose (mg/dL) 447 H 383 H Hemoglobin A1c Plasma Lactic Acid Derrick Phosphorus Magnesium Total Bilirubin AST ALT Creatine Kinase 681 H Troponin I Urine Appearance Urine Protein Urine Glucose (UA) Urine Ketones Urine Blood Ur Leukocyte Esterase Urine RBC Urine WBC Urine WBC Clumps Urine Bacteria 08/10/24 08/10/24 08/10/24 15:53 15:53 15:53 WBC Hgb Hct Neutrophils # Lymphocytes # APTT VBG pH VBG HCO3 Sodium Potassium Chloride 113 H Carbon Dioxide 12 L BUN 77 H Creatinine 1.61 H Glucose 322 H POC Glucose (mg/dL) Hemoglobin A1c Plasma Lactic Acid Derrick 2.9 H* Phosphorus Magnesium Total Bilirubin AST ALT Creatine Kinase Troponin I 0.127 H* Urine Appearance Urine Protein Urine Glucose (UA) Urine Ketones Urine Blood Ur Leukocyte Esterase Urine RBC Urine WBC Urine WBC Clumps Urine Bacteria 08/10/24 08/10/24 08/10/24 16:21 17:18 18:20 WBC Hgb Hct Neutrophils # Lymphocytes # APTT VBG pH VBG HCO3 Sodium Potassium Chloride Carbon Dioxide BUN Creatinine Glucose POC Glucose (mg/dL) 251 H 242 H 222 H Hemoglobin A1c Plasma Lactic Acid Derrick Phosphorus Magnesium Total Bilirubin AST ALT Creatine Kinase Troponin I Urine Appearance Urine Protein Urine Glucose (UA) Urine Ketones Urine Blood Ur Leukocyte Esterase Urine RBC Urine WBC Urine WBC Clumps Urine Bacteria 08/10/24 08/10/24 08/10/24 18:41 19:23 20:11 WBC Hgb Hct Neutrophils # Lymphocytes # APTT VBG pH VBG HCO3 Sodium Potassium Chloride 115 H Carbon Dioxide 19 L BUN 74 H Creatinine 1.26 H Glucose 218 H POC Glucose (mg/dL) 217 H Hemoglobin A1c Plasma Lactic Acid Derrick 3.2 H* Phosphorus Magnesium Total Bilirubin AST ALT Creatine Kinase Troponin I Urine Appearance Urine Protein Urine Glucose (UA) Urine Ketones Urine Blood Ur Leukocyte Esterase Urine RBC Urine WBC Urine WBC Clumps Urine Bacteria 08/10/24 08/10/24 08/10/24 20:28 21:04 21:37 WBC Hgb Hct Neutrophils # Lymphocytes # APTT VBG pH VBG HCO3 Sodium Potassium Chloride Carbon Dioxide BUN Creatinine Glucose POC Glucose (mg/dL) 246 H 169 H Hemoglobin A1c Plasma Lactic Acid Derrick 2.5 H* Phosphorus Magnesium Total Bilirubin AST ALT Creatine Kinase Troponin I Urine Appearance Urine Protein Urine Glucose (UA) Urine Ketones Urine Blood Ur Leukocyte Esterase Urine RBC Urine WBC Urine WBC Clumps Urine Bacteria 08/10/24 08/10/24 08/11/24 21:58 22:57 00:01 WBC Hgb Hct Neutrophils # Lymphocytes # APTT VBG pH VBG HCO3 Sodium Potassium Chloride Carbon Dioxide BUN Creatinine Glucose POC Glucose (mg/dL) 149 H 120 H 117 H Hemoglobin A1c Plasma Lactic Acid Derrick Phosphorus Magnesium Total Bilirubin AST ALT Creatine Kinase Troponin I Urine Appearance Urine Protein Urine Glucose (UA) Urine Ketones Urine Blood Ur Leukocyte Esterase Urine RBC Urine WBC Urine WBC Clumps Urine Bacteria 08/11/24 08/11/24 08/11/24 00:08 01:02 02:09 WBC Hgb Hct Neutrophils # Lymphocytes # APTT VBG pH VBG HCO3 Sodium 146 H Potassium Chloride 117 H Carbon Dioxide 20 L BUN 67 H Creatinine 1.19 H Glucose 126 H POC Glucose (mg/dL) 143 H 189 H Hemoglobin A1c Plasma Lactic Acid Derrick Phosphorus Magnesium Total Bilirubin AST ALT Creatine Kinase Troponin I Urine Appearance Urine Protein Urine Glucose (UA) Urine Ketones Urine Blood Ur Leukocyte Esterase Urine RBC Urine WBC Urine WBC Clumps Urine Bacteria 08/11/24 08/11/24 08/11/24 02:48 04:07 04:07 WBC 15.2 H Hgb Hct Neutrophils # 13.4 H Lymphocytes # 0.8 L APTT VBG pH VBG HCO3 Sodium Potassium Chloride 113 H Carbon Dioxide 16 L BUN 60 H Creatinine 1.18 H Glucose 294 H POC Glucose (mg/dL) 159 H Hemoglobin A1c Plasma Lactic Acid Derrick Phosphorus Magnesium Total Bilirubin AST ALT Creatine Kinase Troponin I Urine Appearance Urine Protein Urine Glucose (UA) Urine Ketones Urine Blood Ur Leukocyte Esterase Urine RBC Urine WBC Urine WBC Clumps Urine Bacteria 08/11/24 08/11/24 08/11/24 05:25 08:01 12:19 WBC Hgb Hct Neutrophils # Lymphocytes # APTT VBG pH VBG HCO3 Sodium Potassium Chloride 114 H Carbon Dioxide BUN 58 H Creatinine 1.21 H Glucose 218 H POC Glucose (mg/dL) 327 H 265 H Hemoglobin A1c Plasma Lactic Acid Derrick Phosphorus Magnesium Total Bilirubin AST ALT Creatine Kinase Troponin I Urine Appearance Urine Protein Urine Glucose (UA) Urine Ketones Urine Blood Ur Leukocyte Esterase Urine RBC Urine WBC Urine WBC Clumps Urine Bacteria Assessment and Plan Assessment: This is a 89 y/o woman who presents to the emergency department on 08/10/2024 since was found on the floor at home. Was weak and unable to get up and carry her self, stand up. She was found to be in DKA and having right sided weakness. Also noted new onset A-fib. Repeat CT head seems concerning new hypodensity in left granda radiata. Has not seen PCP in at least 10 years. Acute to subacute stroke. Has right hemiparesis, right facial droop and dysarthria. Etiology of cva is risk factors. CT head show hypodensity in left granda radiata. 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 No IV thrombolytic since outside window and risk outweigh benefits. DKA Newly diagnosed DM that is uncontrolled (HbA1c: 12.8) Newly atrial fibrillation HTN Possible acute UTI Plan: Patient is started on eliquis 2.5mg bid. Consider starting ASA 81mg daily once stable. She is on Lipitor 80mg daily. MRI Brain, 2D echo and lipid panel are ordered and pending. I ordered carotid duplex. PT, OT and [employer] are consulted. Continue neuro checks. Cardiac monitoring Will defer the rest of medical management to primary team and other specialists. For DVT prophylaxis: Is on Eliquis. Thank you for the consultation. Time with Patient: Greater than 30
--- NOTE | 2024-08-11 14:23 | US ---
EXAMINATION TYPE: US carotid duplex BILAT DATE OF EXAM: 08/11/2024 COMPARISON: NONE CLINICAL INDICATION: Female, 89 years old with history of cva; weakness TECHNIQUE: Grayscale, color Doppler and spectral Doppler evaluation of the bilateral carotid systems and vertebral arteries. Indirect Doppler criteria was utilized. FINDINGS: EXAM MEASUREMENTS: RIGHT: Peak Systolic Velocity (PSV) cm/sec ----- Right CCA: 62.7 ----- Right ICA: 73.0 ----- Right ECA: 80.7 ICA/CCA ratio: 1.16 RIGHT: End Diastole cm/sec ----- Right CCA: 10.8 ----- Right ICA: 15.1 ----- Right ECA: 0.0 LEFT: Peak Systolic Velocity (PSV) cm/sec ----- Left CCA: 60.1 ----- Left ICA: 45.8 ----- Left ECA: 109 ICA/CCA ratio: 0.8 LEFT: End Diastole cm/sec ----- Left CCA: 7.4 ----- Left ICA: 9.9 ----- Left ECA: 0.0 VERTEBRALS (direction of flow): Right Vertebral: Antegrade Left Vertebral: unable to visualize Rhythm: Normal CRIMINAL LEGAL ASSISTANT NOTES: MIld plaque bilateral bifurcations. No evidence of increased velocities Color Doppler imaging shows patency with blood flow throughout the carotid artery. Spectral waveforms are within normal limits. IMPRESSION: 1. 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 Criteria for Assigning % of Stenosis / Diameter reduction (Estimation based on the indirect measurements of the internal carotid artery velocities (ICA PSV). 1. Normal (no stenosis)=ICA PSV < 125 cm/s: ratio < 2.0: ICA EDV<40 cm/s. 2. Less than 50% stenosis=ICA PSV < 125 cm/s: ratio < 2.0: ICA EDV<40 cm/s. 3. 50 to 69% stenosis=ICA PSV of 125 to 230 cm/s: ration 2.0 ? 4.0: ICA EDV 40-100 cm/s. 4. Greater than 70% stenosis to near occlusion= ICA PSV > 230 cm/s: ratio > 4.0: ICA EDV > 100 cm/s. 5. Near occlusion= ICA PSV velocities may be low or undetectable: variable ratio and ICA EDV. 6. Total occlusion=unable to detect flow. [facility], , 08/11/2024 2:21 PM
[2024-08-11 15:49] LABS: Chol/HDL Ratio 3.29 Ratio; LDL Cholesterol,Calculated 126.5 mg/dL (0.0-131.0); VLDL Calculation 19.66 mg/dL (5.00-40.00)
[2024-08-11] MEDS: ATORVASTATIN 80 MG TAB PO SCH (15:58)
[2024-08-11 16:49] LABS: Glucose,Whole Blood 330 mg/dL (70-110)
--- NOTE | 2024-08-11 17:41 | CA ---
Transthoracic Echo Report Name: Nannette Pina Age: 89 Gender: F : 1935 Exam Date: 08/11/2024 14:27 Exam Location: [facility] Ht (in): 60 Wt (lb): 120 Ordering Physician: Sandra Wang MD Attending/Referring Phys: Cardboard Inserter Karin Chew RDCS Procedure CPT: Indications: nstemi Cardiac Hx: Technical Quality: Fair Contrast 1: Total Dose (mL): Contrast 2: Total Dose (mL): MEASUREMENTS (Male / Female) Normal Values 2D ECHO LV Diastolic Diameter PLAX 3.5 cm 4.2 - 5.9 / 3.9 - 5.3 cm LV Systolic Diameter PLAX 2.0 cm IVS Diastolic Thickness 1.2 cm 0.6 - 1.0 / 0.6 - 0.9 cm LVPW Diastolic Thickness 1.2 cm 0.6 - 1.0 / 0.6 - 0.9 cm LV Relative Wall Thickness 0.7 RV Internal Dim ED PLAX 2.1 cm LA Systolic Diameter LX 3.6 cm 3.0 - 4.0 / 2.7 - 3.8 cm LV Diastolic Volume MOD BP 29.1 cm??? 67 - 155 / 56 - 104 cm??? LV Systolic Volume MOD BP 13.2 cm??? 22 - 58 / 19 - 49 cm??? LV Ejection Fraction MOD BP 54.6 % >= 55 % LV Cardiac Index MOD BP 894.4 cm???/min???m??? LV Diastolic Volume MOD 4C 34.0 cm??? LV Systolic Volume MOD 4C 7.1 cm??? LV Ejection Fraction MOD 4C 79.0 % LV Cardiac Index MOD 4C 1511.7 cm???/min???m??? LV Diastolic Length 4C 6.4 cm LV Systolic Length 4C 1.7 cm LV Diastolic Volume MOD 2C 23.8 cm??? LV Systolic Volume MOD 2C 8.9 cm??? LV Ejection Fraction MOD 2C 62.4 % LV Cardiac Index MOD 2C 835.9 cm???/min???m??? LV Diastolic Length 2C 6.1 cm LV Systolic Length 2C 5.0 cm LA Volume 41.1 cm??? 18 - 58 / 22 - 52 cm??? LA Volume Index 26.9 cm???/m??? 16 - 28 cm???/m??? M-MODE Aortic Root Diameter MM 2.7 cm LA Systolic Diameter MM 3.4 cm LA Ao Ratio MM 1.3 AV Cusp Separation MM 1.7 cm DOPPLER AI Peak Velocity 295.5 cm/s AI Peak Gradient 34.9 mmHg AI Pressure Half Time 957.5 ms MV Area PHT 2.2 cm??? Mitral E Point Velocity 55.6 cm/s Mitral A Point Velocity 92.3 cm/s Mitral E to A Ratio 0.6 MV Deceleration Time 341.7 ms TR Peak Velocity 235.6 cm/s TR Peak Gradient 22.2 mmHg FINDINGS Left Ventricle Left ventricular ejection fraction is estimated at 60-65 %. Mildly increased septal wall thickness. Mildly increased posterior wall thickness. Normal left ventricular systolic function with no obvious regional wall motion abnormalities. Left ventricular cavity size normal. Right Ventricle Mild right ventricular dilatation. Right ventricular systolic pressure within normal limits. Right Atrium Moderate right atrial dilatation. Left Atrium Moderate left atrial dilatation. Mitral Valve Structurally normal mitral valve. Mitral valve thickened. Mild mitral regurgitation. Aortic Valve Trileaflet aortic valve. Trace to mild aortic regurgitation. No aortic stenosis. Tricuspid Valve Structurally normal tricuspid valve. Mild tricuspid regurgitation. No tricuspid stenosis. Pulmonic Valve Structurally normal pulmonic valve. No pulmonic stenosis. Trace pulmonic regurgitation. Pericardium Echo free space anterior to the right ventricle likely represents a fat pad. No pericardial or pleural effusion. Aorta Normal size aortic root and proximal ascending aorta. CONCLUSIONS Normal LV function Previewed by: Dr. Jona Zamora MD (Electronically Signed) Final Date: 11 August 2024 17:40
[2024-08-11 20:08] LABS: Glucose,Whole Blood 348 mg/dL (70-110)
[2024-08-11] MEDS: ACETAMINOPHEN TAB 325 MG TAB PO PRN (22:18)
[2024-08-12 02:25] LABS: Glucose,Whole Blood 214 mg/dL (70-110)
[2024-08-12 06:06] LABS: Glucose,Whole Blood 192 mg/dL (70-110)
[2024-08-12 06:22] LABS: Basophils % (A) 0 %; Eosinophils # (A) 0.1 k/uL (0-0.7); Eosinophils % (A) 1 %; HCT 38.6 % (34.0-46.0); HGB 12.1 gm/dL (11.4-16.0); Hypochromasia Slight; Lymphocytes # (A) 1.1 k/uL (1.0-4.8); Lymphocytes % (A) 10 %; MCH 29.8 pg (25.0-35.0); MCHC 31.4 g/dL (31.0-37.0); MCV 94.8 fL (80.0-100.0); Mean Platelet Volume 8.3; Monocytes # (A) 0.6 k/uL (0-1.0); Monocytes % (A) 5 %; Neutrophils # (A) 8.8 k/uL (1.3-7.7); Neutrophils % (A) 81 %; Platelet Count 195 k/uL (150-450); RBC 4.07 m/uL (3.80-5.40); RDW 13.6 % (11.5-15.5); WBC 10.8 k/uL (3.8-10.6)
[2024-08-12 06:59] LABS: African American GFR (CKD) 56 (>60 ml/min/1.73 sqM); Anion Gap 4 mmol/L; Blood Urea Nitrogen 43 mg/dL (7-17); Calcium 8.8 mg/dL (8.4-10.2); Carbon Dioxide 24 mmol/L (22-30); Chloride 112 mmol/L (98-107); Glucose 191 mg/dL (74-99); Non-African American GFR(CKD) 49 (>60 ml/min/1.73 sqM); Potassium 3.9 mmol/L (3.5-5.1); Sodium 140 mmol/L (137-145)
[2024-08-12] MEDS: POTASSIUM BICARBONATE/CIT AC 20 MEQ TABLET.EFF NG-TUBE SCH (08:35)
[2024-08-12] MEDS: POTASSIUM CHLORIDE ER 20 MEQ TAB.ER PO SCH (09:43)
[2024-08-12 11:14] LABS: Glucose,Whole Blood 192 mg/dL (70-110)
[2024-08-12] MEDS: INSULIN LISPRO (HumaLOG) 100 UNIT/ML 10 mL VL SQ SCH (12:14)
--- NOTE | 2024-08-12 12:52 | P.PN ---
Subjective Progress Note Date: 08/12/24 89 year old F with no PMH does not follow a physician presents to the ED. Daughter and grand daughter at bedside providing majority of the history. Appears she fell while trying to get out of bed on . She was found down on Sunday. Unknown head trauma or loss of consciousness. Lives alone and ambul ates with the aid of a cane. In the ED she underwent extensive evaluation. BP 73/39, HR 106, T 98.6F, RR 22, 94% on RA. CBC, Coag panel, CMP significant for WBC 15.2, Hg 16.1, Hct 50.9, APTT 19.4, K 5.7, bicarb 7, BUN 75, Cr 1.92, glu 530, T. Bili 1.4, AST 51, ALT 39. Lactic acid 5.4. CPK 526. Trop 0.055. BNP 2310. TSH 1.64. Phos 8.3. Mag 2.6. UA large LE with > [address] head and C-spine no acute process. CXR, Knee XR no acute process. EKG A-Fib with RVR rate of 144. Patient is admitted to ICU for further workup and management. Started on insulin drip and IV hydration. Admitted to ICU. Cardiology consulted. 08/11 Patient noted to have left sided facial droop and right sided weakness this morning. She is much more awake and alert. Maintained on Cardizem drip at 5 mg/h r. Insulin drip switched to SQ insulin. CBC, BMP significant for WBC 15.2, Cl 114, BUN 58, Cr 1.21, glu 218. Trop 0.127. GB US shows cholelithiasis without cholecystitis. Renal US showed right renal cyst and left renal atrophy. STAT CT head was ordered which is positive for new hypodensity in the left granda radiata. 08/12/2024 patient seen and examined at bedside. No new complaints. MRI brain ca ncelled due to metal in right eye. WBC 10.8, hemoglobin 12.1, platelet count 1 95,000 sodium 140, potassium 3.9, chloride 112, BUN 43, creatinine 1.03, glucose 191. Echo ordered EF 60 to 65% with normal LV anatomy Review of systems: Pertinent positives and negatives as discussed in HPI, a complete review of systems was performed and all other systems are negative. Pertinent imaging and labs reviewed. Physical examination: Vital signs reviewed General: non toxic, no distress, appears at stated age Derm: no unusual rashes/lesions, warm Head: atraumatic, normocephalic, symmetric Eyes: EOMI, anicteric sclera, pupils equal round reactive to light ENT: Nose and ears atraumatic Neck: No cervical lymphadenopathy, trachea midline, supple Mouth: no lip lesion, mucus membranes moist Cardiovascular: S1S2 reg, no murmur Lungs: CTA bilateral, no rhonchi, no rales, no accessory muscle use Abdominal: soft, nontender to palpation, no guarding Ext: muscle strength 5 out of 5 in all 4 extremities grossly, no gross muscle atrophy, no contractures, positive dorsalis pedis pulse bilateral, no edema, pain in RLE Neuro: CN II-XI grossly intact except left sided facial droop. RU and RLE 2/5 strength, MALKA and LLE 5/5 Psych: Alert and oriented x3, appropriate affect and mood Assessment/Plan: #. Acute CVA CT head positive for new hypodensity in the left granda radiata. MRI brain cancelled due to metal in patient's eye Echo ordered EF 60 to 65% with normal LV anatomy Carotid US showed atheromatous plaquing without significant flow-limiting stenosis A1c 12.8 Lipid panel showed elevated cholesterol at 210, LDL normal at 126, HDL elevated at 63 On Lipitor 80 mg PO QD Discussed with Dr. Pozo, start ASA 81 mg PO QD tomorrow. Neurology consultation. Advanced neurochecks. Telemetry monitoring. PT/OT/ST. #. DM with hyperglycemia Glucose 191 today A1c 12.8 Lantus 24 units QD Lispro 6 units TID ISS with Accuchecks ACHS Hypoglycemic precautions. Accuchecks Q6H. #. Sepsis possibly related to UTI Continue Rocephin 1g IV QD UCx positive for gram-negative bacilli BCx final result pending #. Atrial fibrillation with RVR TSH wnl 1.640 Cardizem drip discontinued Metoprolol 12.5 mg PO BID. ASHISH VASC of 3. Maintain K > 4 and Mg > 2. Eliquis 2.5 mg PO BID. Echo ordered EF 60 to 65% with normal LV anatomy Cardiology on board. #. NSTEMI Likely type 2 No chest pain Cardiology on board. #. Acute kidney injury vs CKD, resovled Creatinine 1.03 improved from yesterday IV hydration discontinued Renal bladder US no obstruction. #.Transaminitis, stable Unknown etiology. Liver GB US no pathology. #. Hyperkalemia, resolved #. DKA, resolved F: [place] thick liquids for now E: None for now N: Consistent carbohydrate and diet with one-on-one supervision A: Ambulate with assistance CODE STATUS: FULL CODE DVT Prophylaxis: Eliquis 2.5 mg p.o. twice daily GI Prophylaxis: Protonix 40 mg IV QD. Designated medical POA if patient is not able to make medical decisions for themselves: Daughter Aundreakd Lerner MD [place] PGY-1/Product Ambassador Dictation was produced using [employer] dictation software. please excuse any grammatical, word or spelling errors. I have seen and evaluated the patient today. Discussed with the resident and agree with the residents finding and plan as documented in the resident's note. Changes highlighted in blue font. Objective - Vital Signs Vital signs: Vital Signs Temp 97.8 F 08/11/24 20:00 Pulse 80 08/12/24 07:00 Resp 23 08/12/24 07:00 BP 125/68 08/12/24 07:00 Pulse Ox 95 08/12/24 07:00 FiO2 Intake & Output 08/11/24 08/12/24 08/12/24 18:59 06:59 18:59 Intake Total 50 350 118 Output Total 505 490 30 Balance -455 -140 88 Weight 55.2 kg 54.7 kg Intake: IV 0 D5-0.45% NaCl with KCl 0 20Meq/l 1,000 ml @ 150 mls/hr IV .Q6H40M [facility] Rx# :[id number] Intake, IV Titration 50 Amount cefTRIAXone 1 gm In 50 Sodium Chloride 0.9% 50 ml @ 100 mls/hr IVPB Q24HR [facility] Rx#:[id number] Oral 350 118 Output: Urine 505 490 30 Other: Voiding Method Indwelling Catheter Indwelling Catheter - Labs CBC & Chem 7: 08/12/24 05:10 08/12/24 05:10 Labs: Abnormal Lab Results - Last 24 Hours (Table) 08/10/24 08/11/24 08/11/24 Range/Units 12:21 08:01 08:01 WBC (3.8-10.6) k/uL Neutrophils # (1.3-7.7) k/uL Chloride 114 H (98-107) mmol/L BUN 58 H (7-17) mg/dL Creatinine 1.21 H (0.52-1.04) mg/dL Glucose 218 H (74-99) mg/dL POC Glucose (mg/dL) (70-110) mg/dL Hemoglobin A1c 12.8 H (<=6.0) % Cholesterol 210.00 H (0.00-200.00) mg/dL HDL Cholesterol 63.80 H (40.00-60.00) mg/dL 08/11/24 08/11/24 08/11/24 Range/Units 12:19 16:48 20:07 WBC (3.8-10.6) k/uL Neutrophils # (1.3-7.7) k/uL Chloride (98-107) mmol/L BUN (7-17) mg/dL Creatinine (0.52-1.04) mg/dL Glucose (74-99) mg/dL POC Glucose (mg/dL) 265 H 330 H 348 H (70-110) mg/dL Hemoglobin A1c (<=6.0) % Cholesterol (0.00-200.00) mg/dL HDL Cholesterol (40.00-60.00) mg/dL 08/12/24 08/12/24 08/12/24 Range/Units 02:24 05:10 05:10 WBC 10.8 H (3.8-10.6) k/uL Neutrophils # 8.8 H (1.3-7.7) k/uL Chloride 112 H (98-107) mmol/L BUN 43 H (7-17) mg/dL Creatinine (0.52-1.04) mg/dL Glucose 191 H (74-99) mg/dL POC Glucose (mg/dL) 214 H (70-110) mg/dL Hemoglobin A1c (<=6.0) % Cholesterol (0.00-200.00) mg/dL HDL Cholesterol (40.00-60.00) mg/dL 08/12/24 Range/Units 06:05 WBC (3.8-10.6) k/uL Neutrophils # (1.3-7.7) k/uL Chloride (98-107) mmol/L BUN (7-17) mg/dL Creatinine (0.52-1.04) mg/dL Glucose (74-99) mg/dL POC Glucose (mg/dL) 192 H (70-110) mg/dL Hemoglobin A1c (<=6.0) % Cholesterol (0.00-200.00) mg/dL HDL Cholesterol (40.00-60.00) mg/dL Microbiology - Last 24 Hours (Table) 08/10/24 12:28 Blood Culture - Preliminary Blood 08/10/24 12:21 Urine Culture - Preliminary Urine,Voided Gram Neg Bacilli
--- NOTE | 2024-08-12 13:05 | P.PN ---
Subjective Progress Note Date: 08/12/24 I am following up with the patient and patient states she continues to have weakness on the right side that significant. Good mood new weakness over the left side. Denies any new neurological issues. Objective - Vital Signs Vital signs: Vital Signs Temp 97.4 F L 08/12/24 12:00 Pulse 77 08/12/24 12:00 Resp 23 08/12/24 12:00 BP 141/70 08/12/24 12:00 Pulse Ox 95 08/12/24 12:00 FiO2 Intake & Output 08/11/24 08/12/24 08/12/24 18:59 06:59 18:59 Intake Total 50 350 168 Output Total 505 490 195 Balance -455 -140 -27 Weight 55.2 kg 54.7 kg Intake: IV 0 D5-0.45% NaCl with KCl 0 20Meq/l 1,000 ml @ 150 mls/hr IV .Q6H40M [facility] Rx# :[id number] Intake, IV Titration 50 50 Amount cefTRIAXone 1 gm In 50 50 Sodium Chloride 0.9% 50 ml @ 100 mls/hr IVPB Q24HR [facility] Rx#:[id number] Oral 350 118 Output: Urine 505 490 195 Other: Voiding Method Indwelling Catheter Indwelling Catheter Indwelling Catheter - Exam General: Lying in bed and is not in acute distress. Neuro: The patient is awake, alert, oriented to self, place and time. Is following simple commands. No aphasia. Pupils are round, 4mm, reactive to light. Visual benedict are full to confrontation throughout. EOM intact and no nystagmus. Normal facial sensation to touch throughout. Has right lower facial weakness. Has moderate dysarthria. Tongue is midline and moves side to side without difficulty. Motor: Strength in uppers: Right upper and lowers are 1-2 proximally while distally is 0-1. Left side is 5/5. Has decrease tone on the right side. Sensation: Normal to touch throughout. Plantars: Right is upgoing at baseline. Left is mute. Some of work-up during this hospital visit consisted of: Lipid panel is triglycerides 98, cholesterol is 210, LDL is 126 and HDL is 63. HbA1c: 12.8 U/A seems concerning for acute UTI. I reviewed rest of lab work-up CT head: No acute intracranial process. I personally reviewed CT head and patient has lacunar on left basal ganglia but unsure chronicity. CT Cervical: No acute osseous abnormality. Repeat CT head: New hypodenisity in left granda radiata. Correlate for acute lacunar infarct. Carotid duplex is reported as atheromatous plaque and without significant flow- limiting stenosis. 2D echo: Normal left ventricular function. In the body of the report it is reported as moderate left atrial dilation. - Labs CBC & Chem 7: 08/12/24 05:10 08/12/24 05:10 Labs: Abnormal Lab Results - Last 24 Hours (Table) 08/11/24 08/11/24 08/11/24 Range/Units 08:01 16:48 20:07 WBC (3.8-10.6) k/uL Neutrophils # (1.3-7.7) k/uL Chloride (98-107) mmol/L BUN (7-17) mg/dL Glucose (74-99) mg/dL POC Glucose (mg/dL) 330 H 348 H (70-110) mg/dL Cholesterol 210.00 H (0.00-200.00) mg/dL HDL Cholesterol 63.80 H (40.00-60.00) mg/dL 08/12/24 08/12/24 08/12/24 Range/Units 02:24 05:10 05:10 WBC 10.8 H (3.8-10.6) k/uL Neutrophils # 8.8 H (1.3-7.7) k/uL Chloride 112 H (98-107) mmol/L BUN 43 H (7-17) mg/dL Glucose 191 H (74-99) mg/dL POC Glucose (mg/dL) 214 H (70-110) mg/dL Cholesterol (0.00-200.00) mg/dL HDL Cholesterol (40.00-60.00) mg/dL 08/12/24 08/12/24 Range/Units 06:05 11:12 WBC (3.8-10.6) k/uL Neutrophils # (1.3-7.7) k/uL Chloride (98-107) mmol/L BUN (7-17) mg/dL Glucose (74-99) mg/dL POC Glucose (mg/dL) 192 H 192 H (70-110) mg/dL Cholesterol (0.00-200.00) mg/dL HDL Cholesterol (40.00-60.00) mg/dL Microbiology - Last 24 Hours (Table) 08/10/24 12:28 Blood Culture - Preliminary Blood 08/10/24 12:21 Urine Culture - Preliminary Urine,Voided Gram Neg Bacilli Assessment and Plan Assessment: This is a 89 y/o woman who presents to the emergency department on 08/10/2024 since was found on the floor at home. Was weak and unable to get up and carry her self, stand up. She was found to be in DKA and having right sided weakness. Also noted new onset A-fib. Repeat CT head seems concerning new hypodensity in left granda radiata. Has not seen PCP in at least 10 years. Acute to subacute stroke. Has significant right hemiparesis, right facial droop and dysarthria. Etiology of cva is risk factors. CT head show hypodensity in left granda radiata. 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 No IV thrombolytic since outside window and risk outweigh benefits. DKA Newly diagnosed DM that is uncontrolled (HbA1c: 12.8) Newly atrial fibrillation HTN Possible acute UTI Plan: Patient is started on eliquis 2.5mg bid. Recommend ASA 81mg daily. She is on Lipitor 80mg daily. From neurological perspective can be lowered to 40mg daily. 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 PT, OT and CLINICAL ACCOUNT MANAGER are consulted. Continue neuro checks. Cardiac monitoring Will defer the rest of medical management to primary team and other specialists. For DVT prophylaxis: Is on Eliquis. The plan is discussed with the patient and primary team. Time with Patient: Less than 30
--- NOTE | 2024-08-12 13:21 | P.PN ---
Subjective Progress Note Date: 08/12/24 Principal diagnosis: Acute diabetic ketoacidosis 89-year-old female patient presented to the ED after being found on the floor at home. The patient was feeling weak and she stated that she was unable to get up and carry herself. She was unable to stand. No reported injuries. Workup was done in the ED and the patient was found to have hyperglycemia with a glucose of 530. Acute kidney injury with a BUN of 75 and a creatinine of 1.9. She had a anion gap metabolic acidosis with a gap of 29 and serum bicarb of 7. Sodium was at 140. Lactic acid level was at 5.4. CPK was 524. LFTs showed a bilirubin of 1.4. Calcium levels at 9.6. proBNP level is 2310. UA showed plus for glucose, +2 ketones and multiple WBCs. Serum acetone was positive. White cell count was at 15.2 with a hemoglobin of 16.1 and platelet count of 309. Chest x-ray showed small hiatal hernia without any acute abnormalities. X-ray of the knee showed no fracture and CAT scan of the head and h cervical spine showed no fractures. Chronic appearing periventricular white matter disease was noted along with some atrophy. Based on that, the patient was started on IV fluids, given 2 L bolus and the patient is currently on normal saline at rate of 200 cc an hour and the patient was started on insulin drip at 0.1 units/kg/h. Patient was also noted to be an atrial fibrillation with rapid ventricular response. The heart rate was 144 initially and improved with fluid resuscitation. She was hypotensive initially with a blood pressure of 73/39 and her most recent heart rate shows improvement with a rate of 122 and a BP of 105/64. She remains on room air oxygen with a pulse ox of 94%. Based on that, and the intensive care unit consultation was requested. Patient was seen today on 08/11/2024, remains in the ICU, patient seems to be recovering from her acute diabetic ketoacidosis, acute kidney injury, acute rhabdomyolysis, and acute urinary tract infection, however the patient developed what seems to be a picture of acute CVA. Patient developed sudden onset of right-sided weakness and facial asymmetry, underwent CT scan of the brain, there is a new hypodensity in the left granda radiata consistent with acute lacunar infarct. Patient is to be seen by neurology on consultation. Hence I am keeping the patient in the ICU today. Patient was also seen by cardiology for new onset atrial fibrillation/paroxysmal and the recommendation was to stop Cardizem and start patient on beta-sapna and a 2D echo is pending. It is felt that her atrial fibrillation most likely caused her CVA. And she is on Eliquis at 2.5 mg twice daily. Again the patient is yet to be seen by neurology today. Labs today were reviewed her electrolytes are normal BUN is 58 creatinine 1.21, blood sugar is 265. Patient was seen today on 08/12/2024, remains in the ICU, patient is recovering from diabetic ketoacidosis, and while inpatient she developed what seems to be an acute CVA with right-sided weakness. In addition she had a new onset atrial fibrillation with RVR which may be the cause of her CVA. Continues to have weakness of the right side, her left side seems to be intact. Patient is now on Eliquis at 2.5 mg twice daily, she is also on aspirin 81 mg daily on Lipitor at 80 mg daily she will need physical therapy, Occupational Therapy, and these were being addressed. Neurology continues to follow. After evaluating the patient today, and after reviewing the notes from different consultants, and after reviewing her labs, I recommended transfer to cardiac floor with telemetry. WBC count is 10.8 hemoglobin is 12.1 electrolytes are normal BUN is 43 creatinine 1.03 Objective - Vital Signs Vital signs: Vital Signs Temp 97.4 F L 08/12/24 12:00 Pulse 77 08/12/24 12:00 Resp 23 08/12/24 12:00 BP 141/70 08/12/24 12:00 Pulse Ox 95 08/12/24 12:00 FiO2 Intake & Output 08/11/24 08/12/24 08/12/24 18:59 06:59 18:59 Intake Total 50 350 168 Output Total 505 490 195 Balance -455 -140 -27 Weight 55.2 kg 54.7 kg Intake: IV 0 D5-0.45% NaCl with KCl 0 20Meq/l 1,000 ml @ 150 mls/hr IV .Q6H40M [facility] Rx# :[id number] Intake, IV Titration 50 50 Amount cefTRIAXone 1 gm In 50 50 Sodium Chloride 0.9% 50 ml @ 100 mls/hr IVPB Q24HR [facility] Rx#:[id number] Oral 350 118 Output: Urine 505 490 195 Other: Voiding Method Indwelling Catheter Indwelling Catheter Indwelling Catheter - Exam General: Revealed 89-year-old female on room air, pleasant, does not seem to be in respiratory distress. Derm: Dry, no rashes. Warm Head: atraumatic, normocephalic, there is evidence of facial asymmetry, with left facial droop. Eyes: EOMI, no lid lag, anicteric sclera Mouth: no lip lesion, mucus membranes moist Cardiovascular: S1S2 reg, no murmur Lungs: Clear bilaterally no rhonchi no wheezes Abdominal: Soft nontender no MAG no rebound no guarding. Ext: no gross muscle atrophy, no edema, no contractures Neuro: CN 2-12 grossly intact except left sided facial droop. RU + RLE 2/5 strength, MALKA + LLE 5/5. Psych: Alert and oriented x 3 normal mood, affect and no mental status examination. - Labs CBC & Chem 7: 08/12/24 05:10 08/12/24 05:10 Labs: Abnormal Lab Results - Last 24 Hours (Table) 08/11/24 08/11/24 08/11/24 Range/Units 08:01 16:48 20:07 WBC (3.8-10.6) k/uL Neutrophils # (1.3-7.7) k/uL Chloride (98-107) mmol/L BUN (7-17) mg/dL Glucose (74-99) mg/dL POC Glucose (mg/dL) 330 H 348 H (70-110) mg/dL Cholesterol 210.00 H (0.00-200.00) mg/dL HDL Cholesterol 63.80 H (40.00-60.00) mg/dL 08/12/24 08/12/24 08/12/24 Range/Units 02:24 05:10 05:10 WBC 10.8 H (3.8-10.6) k/uL Neutrophils # 8.8 H (1.3-7.7) k/uL Chloride 112 H (98-107) mmol/L BUN 43 H (7-17) mg/dL Glucose 191 H (74-99) mg/dL POC Glucose (mg/dL) 214 H (70-110) mg/dL Cholesterol (0.00-200.00) mg/dL HDL Cholesterol (40.00-60.00) mg/dL 08/12/24 08/12/24 Range/Units 06:05 11:12 WBC (3.8-10.6) k/uL Neutrophils # (1.3-7.7) k/uL Chloride (98-107) mmol/L BUN (7-17) mg/dL Glucose (74-99) mg/dL POC Glucose (mg/dL) 192 H 192 H (70-110) mg/dL Cholesterol (0.00-200.00) mg/dL HDL Cholesterol (40.00-60.00) mg/dL Microbiology - Last 24 Hours (Table) 08/10/24 12:28 Blood Culture - Preliminary Blood 08/10/24 12:21 Urine Culture - Preliminary Urine,Voided Gram Neg Bacilli Assessment and Plan Assessment: Impression: Acute CVA with right-sided weakness most likely secondary to her new onset atrial fibrillation Acute DKA with hyperglycemia and anion gap metabolic acidosis, resolved Acute kidney injury likely secondary to intravascular volume depletion and dehydration, improving Atrial fibrillation with rapid ventricular response Mild rhabdomyolysis secondary to above. The patient had collapsed on the floor for several days Suspected UTI Mild leukocytosis Recommendation: Continue to monitor in the ICU specially with her new CVA findings Neurology to see in consultation Continue Eliquis, aspirin and statin Carotid Doppler was reviewed patient had atheromatous plaquing without significant flow-limiting stenosis. Continue Levemir insulin and sliding scale insulin Continue to monitor electrolytes and glucose Continue to monitor renal profile Continue Rocephin empirically for possible UTI Patient is now off Cardizem placed on beta-blockers as per cardiology Reviewed her labs We will transfer the patient out of the ICU to a monitored bed and selective Physical therapy and Occupational Therapy to evaluate Time with Patient: Less than 30
[2024-08-12] MEDS: LOSARTAN 25 MG TAB PO SCH (14:39)
[2024-08-12 16:13] LABS: Glucose,Whole Blood 306 mg/dL (70-110)
[2024-08-12 20:01] LABS: Glucose,Whole Blood 175 mg/dL (70-110)
[2024-08-13 02:41] LABS: Glucose,Whole Blood 155 mg/dL (70-110)
[2024-08-13 06:25] LABS: Glucose,Whole Blood 150 mg/dL (70-110)
[2024-08-13] MEDS: INSULIN GLARGINE (LANTUS) 100 UNIT/ML SYR SQ SCH (06:27)
[2024-08-13 07:24] LABS: African American GFR (CKD) 63 (>60 ml/min/1.73 sqM); Anion Gap 7 mmol/L; Blood Urea Nitrogen 32 mg/dL (7-17); Calcium 8.6 mg/dL (8.4-10.2); Carbon Dioxide 24 mmol/L (22-30); Chloride 105 mmol/L (98-107); Glucose 137 mg/dL (74-99); Non-African American GFR(CKD) 54 (>60 ml/min/1.73 sqM); Potassium 4.1 mmol/L (3.5-5.1); Sodium 136 mmol/L (137-145)
[2024-08-13 07:59] LABS: Basophils % (A) 0 %; Eosinophils # (A) 0.2 k/uL (0-0.7); Eosinophils % (A) 2 %; HCT 42.3 % (34.0-46.0); HGB 13.4 gm/dL (11.4-16.0); Lymphocytes # (A) 0.9 k/uL (1.0-4.8); Lymphocytes % (A) 9 %; MCH 30.2 pg (25.0-35.0); MCHC 31.6 g/dL (31.0-37.0); MCV 95.3 fL (80.0-100.0); Mean Platelet Volume 8.8; Monocytes # (A) 0.5 k/uL (0-1.0); Monocytes % (A) 5 %; Neutrophils % (A) 83 %; Platelet Count 179 k/uL (150-450); RBC 4.44 m/uL (3.80-5.40); RDW 13.9 % (11.5-15.5); WBC 10.9 k/uL (3.8-10.6)
[2024-08-13] MEDS: ASPIRIN 81 MG PO SCH (08:55)
[2024-08-13 11:37] LABS: Glucose,Whole Blood 279 mg/dL (70-110)
--- NOTE | 2024-08-13 11:59 | P.PN ---
Subjective Progress Note Date: 08/13/24 89 year old F with no PMH does not follow a physician presents to the ED. Daughter and grand daughter at bedside providing majority of the history. Appears she fell while trying to get out of bed on . She was found down on Sunday. Unknown head trauma or loss of consciousness. Lives alone and ambul ates with the aid of a cane. In the ED she underwent extensive evaluation. BP 73/39, HR 106, T 98.6F, RR 22, 94% on RA. CBC, Coag panel, CMP significant for WBC 15.2, Hg 16.1, Hct 50.9, APTT 19.4, K 5.7, bicarb 7, BUN 75, Cr 1.92, glu 530, T. Bili 1.4, AST 51, ALT 39. Lactic acid 5.4. CPK 526. Trop 0.055. BNP 2310. TSH 1.64. Phos 8.3. Mag 2.6. UA large LE with > [address] head and C-spine no acute process. CXR, Knee XR no acute process. EKG A-Fib with RVR rate of 144. Patient is admitted to ICU for further workup and management. Started on insulin drip and IV hydration. Admitted to ICU. Cardiology consulted. 08/11 Patient noted to have left sided facial droop and right sided weakness this morning. She is much more awake and alert. Maintained on Cardizem drip at 5 mg/h r. Insulin drip switched to SQ insulin. CBC, BMP significant for WBC 15.2, Cl 114, BUN 58, Cr 1.21, glu 218. Trop 0.127. GB US shows cholelithiasis without cholecystitis. Renal US showed right renal cyst and left renal atrophy. STAT CT head was ordered which is positive for new hypodensity in the left granda radiata. 08/12/2024 patient seen and examined at bedside. No new complaints. MRI brain ca ncelled due to metal in right eye. WBC 10.8, hemoglobin 12.1, platelet count 1 95,000 sodium 140, potassium 3.9, chloride 112, BUN 43, creatinine 1.03, glucose 191. Echo ordered EF 60 to 65% with normal LV anatomy 07/24/2024 patient seen and examined at bedside. No new complaints. No acute events overnight. Labs showed WBC 10.9, hemoglobin 13.4, platelet count 1 79,000, sodium 136, potassium 4.1, chloride 105, BUN 32, creatinine 0.94, glucose 137, calcium 8.6 Review of systems: Pertinent positives and negatives as discussed in HPI, a complete review of systems was performed and all other systems are negative. Pertinent imaging and labs reviewed. Physical examination: Vital signs reviewed General: non toxic, no distress, appears at stated age Derm: no unusual rashes/lesions, warm Head: atraumatic, normocephalic, symmetric Eyes: EOMI, anicteric sclera, pupils equal round reactive to light ENT: Nose and ears atraumatic Neck: No cervical lymphadenopathy, trachea midline, supple Mouth: no lip lesion, mucus membranes moist Cardiovascular: S1S2 reg, no murmur Lungs: CTA bilateral, no rhonchi, no rales, no accessory muscle use Abdominal: soft, nontender to palpation, no guarding Ext: muscle strength 5 out of 5 in all 4 extremities grossly, no gross muscle atrophy, no contractures, positive dorsalis pedis pulse bilateral, no edema, pain in RLE, aputated L 3rd finger Neuro: CN II-XI grossly intact, left sided facial droop. RU 0/5, RLE 2/5 strength, MALKA and LLE 5/5 Psych: Alert and oriented x3, appropriate affect and mood Assessment/Plan: 89-year-old female with no significant past medical history here for further evaluation of DKA and A-fib RVR that has now resolved and was found to have acute thrombotic CVA on imaging #. Acute thrombotic CVA CT head positive for new hypodensity in the left granda radiata. MRI brain cancelled due to metal in patient's eye Echo ordered EF 60 to 65% with normal LV anatomy Carotid US showed atheromatous plaquing without significant flow-limiting stenosis A1c 12.8 Lipid panel showed elevated cholesterol at 210, LDL normal at 126, HDL elevated at 63 On Lipitor 80 mg PO QD Continue ASA 81 mg p.o. daily Neurology consultation. Advanced neurochecks. Telemetry monitoring. PT/OT/ST recommended inpatient rehab Consult for inpatient rehab #. DM with hyperglycemia Glucose 137 today A1c 12.8 Lantus 24 units QD Lispro 6 units TID ISS with Accuchecks ACHS Hypoglycemic precautions. Accuchecks Q6H. #. Sepsis possibly related to UTI Continue Rocephin 1g IV QD currently on day 2 UCx positive for E. coli BCx final result pending Cefdinir 5 days on d/c #. Atrial fibrillation with RVR TSH wnl 1.640 Cardizem drip discontinued 08/10 Metoprolol 12.5 mg PO BID. ASHISH VASC of 3. Maintain K > 4 and Mg > 2. Eliquis 2.5 mg PO BID Echo ordered EF 60 to 65% with normal LV anatomy Cardiology on board #. NSTEMI, type II No chest pain Cardiology on board. #. Acute kidney injury vs CKD, resovled Creatinine 0.94 Renal bladder US no obstruction. Monitor BMP #.Transaminitis, stable Unknown etiology. Liver GB US no pathology. #. Hyperkalemia, resolved #. DKA, resolved F: [place] thick liquids for now E: None for now N: Consistent carbohydrate and diet with one-on-one supervision A: Ambulate with assistance CODE STATUS: FULL CODE DVT Prophylaxis: Eliquis 2.5 mg p.o. twice daily GI Prophylaxis: Protonix 40 mg IV QD. Designated medical POA if patient is not able to make medical decisions for themselves: Daughter Aundrea Eduarda oRss MD PGY-1/Nurse Specialist Dictation was produced using [employer] dictation software. please excuse any grammatical, word or spelling errors. I have seen and evaluated the patient today. Discussed with the resident and agree with the residents finding and plan as documented in the resident's note. Changes highlighted in blue font. Objective - Vital Signs Vital signs: Vital Signs Temp 98.5 F 08/12/24 20:30 Pulse 60 08/13/24 03:05 Resp 18 08/13/24 03:05 BP 138/77 08/13/24 03:05 Pulse Ox 97 08/13/24 03:05 FiO2 Intake & Output 08/12/24 08/12/24 08/13/24 06:59 18:59 06:59 Intake Total 350 168 Output Total 490 535 850 Balance -140 -104 -532 Weight 54.7 kg 54.5 kg Intake: Intake, IV Titration 50 Amount cefTRIAXone 1 gm In 50 Sodium Chloride 0.9% 50 ml @ 100 mls/hr IVPB Q24HR [facility] Rx#:[id number] Oral 350 118 Output: Urine 490 535 850 Straight 550 Other: Voiding Method Indwelling Catheter Indwelling Catheter Diaper # Bowel Movements 1 - Labs CBC & Chem 7: 08/13/24 06:12 08/13/24 06:12 Labs: Abnormal Lab Results - Last 24 Hours (Table) 08/12/24 08/12/24 08/12/24 Range/Units 05:10 11:12 16:10 Chloride 112 H (98-107) mmol/L BUN 43 H (7-17) mg/dL Glucose 191 H (74-99) mg/dL POC Glucose (mg/dL) 192 H 306 H (70-110) mg/dL 08/12/24 08/13/24 08/13/24 Range/Units 20:00 02:40 06:24 Chloride (98-107) mmol/L BUN (7-17) mg/dL Glucose (74-99) mg/dL POC Glucose (mg/dL) 175 H 155 H 150 H (70-110) mg/dL Microbiology - Last 24 Hours (Table) 08/10/24 12:28 Blood Culture - Preliminary Blood 08/10/24 12:21 Urine Culture - Final Urine,Voided Escherichia coli
--- NOTE | 2024-08-13 12:30 | P.CONS ---
History of Present Illness - Reason for Consult Consult date: 08/13/24 rehab recommendations - Chief Complaint weakness, CVA - History of Present Illness Ms Nannette Pina is an 89 y/o right handed female who lives alone in a single story home with 3 [place]. Prior to admission, patient was independent with mobility using a cane and with ADLs. Notes has no to help her at home. Patient presented to the hospital on 08/10/24 after falling out of bed on , was apparently found down on Sunday. Unknown if there was head trauma. In ED, BP 73/39, HR 106, T 98.6F, RR 22, 94% on RA. WBC 15.2, Hg 16.1, Hct 50.9, APTT 19.4, K 5.7, bicarb 7, BUN 75, Cr 1.92, glu 530, T. Bili 1.4, AST 51, ALT 39. Lactic acid 5.4. CPK 526. Trop 0.055. BNP 2310. TSH 1.64. Phos 8.3. Mag 2.6. UA large LE with > [address] head and C-spine no acute process. CXR, Knee XR no acute process. EKG A-Fib with RVR rate of 144. Patient is admitted to ICU for further workup and management. She was started on insulin drip and IV hydration given DKA. 08/11 Patient noted to have left sided facial droop and right sided weakness. Maintained on Cardizem drip at 5 mg/hr. Insulin drip switched to SQ insulin. GB US shows cholelithiasis without cholecystitis. Renal US showed right renal cyst and left renal atrophy. STAT CT head was ordered which is positive for new hypodensity in the left granda radiata. MRI brain cancelled due to metal in right eye. WBC 10.8, hemoglobin 12.1, platelet count 1 95,000 sodium 140, potassium 3.9, chloride 112, BUN 43, creatinine 1.03, glucose 191. Echo ordered EF 60 to 65% with normal LV anatomy PM&R was consulted. Patient was seen by therapies, needing total assist with ADLs except mod assist with grooming, total assist with bed mobility, unable to transfer or ambulate at this time. 08/13/24: She is eatin lunch with help. Notes is weak on right side, having some right knee pain. Roberto MALIN, SOB, CP, abdominal pain. Patient considering [facility] [place] or [place] to be closer to family. Review of Systems reviewed, as above in HPI Past Medical History Past Medical History: No Reported History History of Any Multi-Drug Resistant Organisms: None Reported Past Surgical History: No Surgical Hx Reported Past Anesthesia/Blood Transfusion Reactions: No Reported Reaction Smoking Status: Never smoker Medications and Allergies Home Medications Medication Instructions Recorded Confirmed Type No Known Home Medications 08/10/24 08/10/24 History Allergies Allergy/AdvReac Type Severity Reaction Status Date / Time apple Allergy Unknown Verified 08/11/24 18:08 Physical Exam Vitals: Vital Signs Temp Pulse Pulse Resp BP BP Pulse Ox 08/13/24 09:00 98.2 F 79 18 131/67 96 08/13/24 03:05 60 18 138/77 97 08/12/24 23:40 66 18 154/77 94 L 08/12/24 20:30 98.5 F 82 18 170/85 96 08/12/24 17:55 80 17 140/73 100 08/12/24 16:00 98.4 F 87 19 178/86 95 08/12/24 15:00 78 20 95 08/12/24 14:00 75 20 94 L 08/12/24 13:00 75 22 143/74 94 L Intake and Output 08/12/24 08/13/24 08/13/24 22:59 06:59 14:59 Output Total 250 850 Balance -250 -850 Output: Urine 250 850 Straight 550 Other: Voiding Method Diaper Diaper Diaper # Bowel Movements 1 Weight 54.5 kg General: Well-developed, well-nourished, female, in no acute distress HEENT: NC/AT, external ears intact, hearing intact to conversational speech, neck supple Cardiovascular: B/L calves are supple, nontender, no cords, without significant peripheral edema, no cardiac distress; regular rate Respiratory: Even and unlabored breathing on RA Abdomen: Soft, nontender, nondistended Skin: Skin intact where visible to head, neck, and bilateral upper and lower extremities Neurological: Alert and oriented x 3 (not to year). CN II-XII: right facial droop, tongue deviation, decreased shrug. Speech is dysarthric, fluid content, able to repeat no ifs ands or buts. follows 3 step commands. MMT 5/5 left UE/LE; right UE ~1-2/5, right LE ~2-3/5 + right babinski. Sensation: light touch intact UE/LE Psychiatric: Mood calm, affect appropriate, cooperative. Results CBC & Chem 7: 08/13/24 06:12 08/13/24 06:12 Labs: Abnormal Lab Results - Last 24 Hours (Table) 08/12/24 08/12/24 08/13/24 Range/Units 16:10 20:00 02:40 WBC (3.8-10.6) k/uL Neutrophils # (1.3-7.7) k/uL Lymphocytes # (1.0-4.8) k/uL Sodium (137-145) mmol/L BUN (7-17) mg/dL Glucose (74-99) mg/dL POC Glucose (mg/dL) 306 H 175 H 155 H (70-110) mg/dL 08/13/24 08/13/24 08/13/24 Range/Units 06:12 06:12 06:24 WBC 10.9 H (3.8-10.6) k/uL Neutrophils # 9.0 H (1.3-7.7) k/uL Lymphocytes # 0.9 L (1.0-4.8) k/uL Sodium 136 L (137-145) mmol/L BUN 32 H (7-17) mg/dL Glucose 137 H (74-99) mg/dL POC Glucose (mg/dL) 150 H (70-110) mg/dL 08/13/24 Range/Units 11:36 WBC (3.8-10.6) k/uL Neutrophils # (1.3-7.7) k/uL Lymphocytes # (1.0-4.8) k/uL Sodium (137-145) mmol/L BUN (7-17) mg/dL Glucose (74-99) mg/dL POC Glucose (mg/dL) 279 H (70-110) mg/dL Microbiology - Last 24 Hours (Table) 08/10/24 12:28 Blood Culture - Preliminary Blood 08/10/24 12:21 Urine Culture - Final Urine,Voided Escherichia coli Assessment and Plan Assessment: # Right hemiparesis secondary to acute left lacunar infarct #Dysphagia -Level 2 diet with NTL, no straws #Fall with prolonged time down #Rhabdomyolysis secondary to above #DKA resolved #Sepsis secondary to UTI #Afib with RVR #DVT Proph -on Eliquis #Pain Management -Tylenol prn #your medical dx and management Dispo: Patient considering [facility] as it is closer to family. She has limited support and lives alone. As she will likely need prolonged rehab due to her stroke and has minimal home support, [facility] is most appropriate at this time. Consult prepped by Kristen Jefferson PA-C, patient seen and examined by Dr Wang. Thank you for consulting our services.
--- NOTE | 2024-08-13 14:20 | P.PN ---
Subjective Progress Note Date: 08/13/24 I am following-up with patient and feels about the same. Continues to have weakness on the right side. Denies new neurological issues. Objective - Vital Signs Vital signs: Vital Signs Temp 98.2 F 08/13/24 09:00 Pulse 73 08/13/24 11:25 Resp 17 08/13/24 11:25 BP 158/81 08/13/24 11:25 Pulse Ox 97 08/13/24 11:25 FiO2 Intake & Output 08/12/24 08/13/24 08/13/24 18:59 06:59 18:59 Intake Total 168 Output Total 535 850 Balance -367 -850 Weight 54.5 kg Intake: Intake, IV Titration 50 Amount cefTRIAXone 1 gm In 50 Sodium Chloride 0.9% 50 ml @ 100 mls/hr IVPB Q24HR [facility] Rx#:[id number] Oral 118 Output: Urine 535 850 Straight 550 Other: Voiding Method Indwelling Catheter Diaper Diaper # Bowel Movements 1 - Exam General: Lying in bed and is not in acute distress. Neuro: The patient is awake, alert, oriented to self, place and time. Is following simple commands. No aphasia. Pupils are round, 4mm, reactive to light. Visual benedict are full to confrontation throughout. EOM intact and no nystagmus. Normal facial sensation to touch throughout. Has right lower facial weakness. Has moderate dysarthria. Tongue is midline and moves side to side without difficulty. Motor: Strength in uppers: Right upper and lowers are 1-2 proximally while distally is 1. Left side is 5/5. Has decrease tone on the right side. Sensation: Normal to touch throughout. Plantars: Right is upgoing at baseline. Left is mute. Some of work-up during this hospital visit consisted of: Lipid panel is triglycerides 98, cholesterol is 210, LDL is 126 and HDL is 63. HbA1c: 12.8 U/A seems concerning for acute UTI. I reviewed rest of lab work-up CT head: No acute intracranial process. I personally reviewed CT head and patient has lacunar on left basal ganglia but unsure chronicity. CT Cervical: No acute osseous abnormality. Repeat CT head: New hypodenisity in left granda radiata. Correlate for acute lacunar infarct. Carotid duplex is reported as atheromatous plaque and without significant flow- limiting stenosis. 2D echo: Normal left ventricular function. In the body of the report it is reported as moderate left atrial dilation. - Labs CBC & Chem 7: 08/13/24 06:12 08/13/24 06:12 Labs: Abnormal Lab Results - Last 24 Hours (Table) 08/12/24 08/12/24 08/13/24 Range/Units 16:10 20:00 02:40 WBC (3.8-10.6) k/uL Neutrophils # (1.3-7.7) k/uL Lymphocytes # (1.0-4.8) k/uL Sodium (137-145) mmol/L BUN (7-17) mg/dL Glucose (74-99) mg/dL POC Glucose (mg/dL) 306 H 175 H 155 H (70-110) mg/dL 08/13/24 08/13/24 08/13/24 Range/Units 06:12 06:12 06:24 WBC 10.9 H (3.8-10.6) k/uL Neutrophils # 9.0 H (1.3-7.7) k/uL Lymphocytes # 0.9 L (1.0-4.8) k/uL Sodium 136 L (137-145) mmol/L BUN 32 H (7-17) mg/dL Glucose 137 H (74-99) mg/dL POC Glucose (mg/dL) 150 H (70-110) mg/dL 08/13/24 Range/Units 11:36 WBC (3.8-10.6) k/uL Neutrophils # (1.3-7.7) k/uL Lymphocytes # (1.0-4.8) k/uL Sodium (137-145) mmol/L BUN (7-17) mg/dL Glucose (74-99) mg/dL POC Glucose (mg/dL) 279 H (70-110) mg/dL Microbiology - Last 24 Hours (Table) 08/10/24 12:28 Blood Culture - Preliminary Blood 08/10/24 12:21 Urine Culture - Final Urine,Voided Escherichia coli Assessment and Plan Assessment: This is a 89 y/o woman who presents to the emergency department on 08/10/2024 since was found on the floor at home. Was weak and unable to get up and carry her self, stand up. She was found to be in DKA and having right sided weakness. Also noted new onset A-fib. Repeat CT head seems concerning new hypodensity in left granda radiata. Has not seen PCP in at least 10 years. Acute to subacute stroke. Has significant right hemiparesis, right facial droop and dysarthria. Etiology of cva is risk factors. CT head show hypodensity in left granda radiata. 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 No IV thrombo lytic since outside window and risk outweigh benefits. DKA Newly diagnosed DM that is uncontrolled (HbA1c: 12.8) Newly atrial fibrillation HTN Possible acute UTI Plan: Patient is started on eliquis 2.5mg bid. Started ASA 81mg daily. She is on Lipitor 80mg daily. From neurological perspective can be lowered to 40mg daily. 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 PT, OT and DATA ENTRY ASSISTANT are consulted. Patient will benefit from inpatient rehab. Continue neuro checks. Cardiac monitoring Will defer the rest of medical management to primary team and other specialists. For DVT prophylaxis: Is on Eliquis. Upon discharge, recommend the patient to follow-up with outpatient neurologist as outpatient within 2-3 weeks. The plan is discussed with the patient, her nurse and primary team. Will follow-up with patient sporadically. No further neurological work-up. Time with Patient: Less than 30
--- NOTE | 2024-08-13 15:00 | P.PN ---
Subjective Progress Note Date: 08/13/24 HISTORY OF PRESENTING ILLNESS This is a pleasant 89-year-old with no past medical history who presents se condary to fall and being found down on the floor in between her bed. Patient does not recall all of the events that led up to this. She states previous to this she was relatively healthy and doing fairly well. She is found to have DKA and hyperglycemia with glucose in the 500 range with hemoglobin A1c 12. She does not follow with a doctor. She was found to have new-onset of A. fib with RVR and started on Cardizem drip. She converted to normal sinus rhythm. Additionally she has been having right-sided weakness and CAT scan shows concern of acute stroke in the left granda radiata. Does not smoke, no alcohol. Family history of both mother and father having some form of CAD. She is found to have mildly elevated troponins 0.05, 0.12. 08/13 Patient seen and examined on the cardiac stepdown unit. Patient has been transferred out of the intensive care unit. Patient's only complaint is that she cannot move her right side. Blood pressure 158/81, heart rate 73, pulse ox 97% on room air. Repeat blood work reveals WBC 10.9, hemoglobin 13.4, BUN 32 creatinine 0.94. Echocardiogram reveals EF of 60 to 65%. PHYSICAL EXAMINATION Vital signs reviewed. CONSTITUTIONAL: No apparent distress. HEENT: Head is normocephalic. Pupils are equal, round. Sclerae anicteric. Mucous membranes of the mouth are moist. No JVD. No carotid bruit. CHEST EXAMINATION: Lungs are clear to auscultation. No chest wall tenderness is noted on palpation or with deep breathing. HEART EXAMINATION: Regular rate and rhythm. S1, S2 heard. No murmurs, gallops or rub. ABDOMEN: Soft, nontender. Positive bowel sounds. EXTREMITIES: 2+ peripheral pulses, no lower extremity edema and no calf tenderness. NEUROLOGIC EXAMINATION: Patient is awake, alert, some poor recall, +right sided weakness ASSESSMENT Non STEMI likely type II mechanism DKA Fall likely related to stroke, DKA New-onset diabetes mellitus type 2 New-onset atrial fibrillation, paroxysmal and currently normal sinus rhythm Acute kidney injury Family history of CAD Poor medical follow-up previously Acute stroke with right-sided weakness PLAN Continue Eliquis 2.5 mg twice daily, atorvastatin, losartan 12.5 mg daily and adjust as appropriate for blood pressure control, metoprolol tartrate 12.5 mg twice daily No further cardiac workup at this time Cardiology will sign off this case and follow on an as-needed basis. Please reconsult for any new concerns. Patient may follow-up in the office in one to [address] Bridges. Nurse practitioner note has been reviewed, I agree with documented findings and plan of care. Patient was seen and examined. Objective - Vital Signs Vital signs: Vital Signs Temp 98.2 F 08/13/24 09:00 Pulse 73 08/13/24 11:25 Resp 17 08/13/24 11:25 BP 158/81 08/13/24 11:25 Pulse Ox 97 08/13/24 11:25 FiO2 Intake & Output 08/12/24 08/13/24 08/13/24 18:59 06:59 18:59 Intake Total 168 Output Total 535 850 Balance -367 -850 Weight 54.5 kg Intake: Intake, IV Titration 50 Amount cefTRIAXone 1 gm In 50 Sodium Chloride 0.9% 50 ml @ 100 mls/hr IVPB Q24HR [facility] Rx#:[id number] Oral 118 Output: Urine 535 850 Straight 550 Other: Voiding Method Indwelling Catheter Diaper Diaper # Bowel Movements 1 - Labs CBC & Chem 7: 08/13/24 06:12 08/13/24 06:12 Labs: Abnormal Lab Results - Last 24 Hours (Table) 08/12/24 08/12/24 08/13/24 Range/Units 16:10 20:00 02:40 WBC (3.8-10.6) k/uL Neutrophils # (1.3-7.7) k/uL Lymphocytes # (1.0-4.8) k/uL Sodium (137-145) mmol/L BUN (7-17) mg/dL Glucose (74-99) mg/dL POC Glucose (mg/dL) 306 H 175 H 155 H (70-110) mg/dL 08/13/24 08/13/24 08/13/24 Range/Units 06:12 06:12 06:24 WBC 10.9 H (3.8-10.6) k/uL Neutrophils # 9.0 H (1.3-7.7) k/uL Lymphocytes # 0.9 L (1.0-4.8) k/uL Sodium 136 L (137-145) mmol/L BUN 32 H (7-17) mg/dL Glucose 137 H (74-99) mg/dL POC Glucose (mg/dL) 150 H (70-110) mg/dL 08/13/24 Range/Units 11:36 WBC (3.8-10.6) k/uL Neutrophils # (1.3-7.7) k/uL Lymphocytes # (1.0-4.8) k/uL Sodium (137-145) mmol/L BUN (7-17) mg/dL Glucose (74-99) mg/dL POC Glucose (mg/dL) 279 H (70-110) mg/dL Microbiology - Last 24 Hours (Table) 08/10/24 12:28 Blood Culture - Preliminary Blood 08/10/24 12:21 Urine Culture - Final Urine,Voided Escherichia coli
--- NOTE | 2024-08-13 15:28 | P.PN ---
Subjective Progress Note Date: 08/13/24 89-year-old female patient presented to the ED after being found on the floor at home. The patient was feeling weak and she stated that she was unable to get up and carry herself. She was unable to stand. No reported injuries. Workup was done in the ED and the patient was found to have hyperglycemia with a glucose of 530. Acute kidney injury with a BUN of 75 and a creatinine of 1.9. She had a anion gap metabolic acidosis with a gap of 29 and serum bicarb of 7. Sodium was at 140. Lactic acid level was at 5.4. CPK was 524. LFTs showed a bilirubin of 1.4. Calcium levels at 9.6. proBNP level is 2310. UA showed plus for glucose, +2 ketones and multiple WBCs. Serum acetone was positive. White cell count was at 15.2 with a hemoglobin of 16.1 and platelet count of 309. Chest x-ray showed small hiatal hernia without any acute abnormalities. X-ray of the knee showed no fracture and CAT scan of the head and h cervical spine showed no fractures. Chronic appearing periventricular white matter disease was noted along with some atrophy. Based on that, the patient was started on IV fluids, given 2 L bolus and the patient is currently on normal saline at rate of 200 cc an hour and the patient was started on insulin drip at 0.1 units/kg/h. Patient was also noted to be an atrial fibrillation with rapid ventricular response. The heart rate was 144 initially and improved with fluid resuscitation. She was hypotensive initially with a blood pressure of 73/39 and her most recent heart rate shows improvement with a rate of 122 and a BP of 105/64. She remains on room air oxygen with a pulse ox of 94%. Based on that, and the intensive care unit consultation was requested. Patient was seen today on 08/11/2024, remains in the ICU, patient seems to be recovering from her acute diabetic ketoacidosis, acute kidney injury, acute rhabdomyolysis, and acute urinary tract infection, however the patient developed what seems to be a picture of acute CVA. Patient developed sudden onset of right-sided weakness and facial asymmetry, underwent CT scan of the brain, there is a new hypodensity in the left granda radiata consistent with acute lacunar infarct. Patient is to be seen by neurology on consultation. Hence I am keeping the patient in the ICU today. Patient was also seen by cardiology for new onset atrial fibrillation/paroxysmal and the recommendation was to stop Cardizem and start patient on beta-sapna and a 2D echo is pending. It is felt that her atrial fibrillation most likely caused her CVA. And she is on Eliquis at 2.5 mg twice daily. Again the patient is yet to be seen by neurology today. Labs today were reviewed her electrolytes are normal BUN is 58 creatinine 1.21, blood sugar is 265. Patient was seen today on 08/12/2024, remains in the ICU, patient is recovering from diabetic ketoacidosis, and while inpatient she developed what seems to be an acute CVA with right-sided weakness. In addition she had a new onset atrial fibrillation with RVR which may be the cause of her CVA. Continues to have weakness of the right side, her left side seems to be intact. Patient is now on Eliquis at 2.5 mg twice daily, she is also on aspirin 81 mg daily on Lipitor at 80 mg daily she will need physical therapy, Occupational Therapy, and these were being addressed. Neurology continues to follow. After evaluating the patient today, and after reviewing the notes from different consultants, and after reviewing her labs, I recommended transfer to cardiac floor with telemetry. WBC count is 10.8 hemoglobin is 12.1 electrolytes are normal BUN is 43 creatinine 1.03 The patient is seen today August 13, 2024 in follow-up on the selective care unit. She was transferred out of the intensive care unit yesterday. She is sitting up in bed. Awake and alert in no acute distress. Maintaining O2 saturations in the 90s on room air. She is afebrile. Hemodynamically stable. She does have residual right sided weakness from her recent left lacunar cerebrovascular accident. Dysphagia. She is currently on a dysphagia level 2: Ground diet with one-to-one supervision. She was seen for possible inpatient rehabilitation but was recommended subacute rehabilitation. She is anticoagulated with Eliquis. Remains on ceftriaxone. Transitioned to Lantus and Humalog. White count 10.9. Hemoglobin 13.4. Platelets 179. Sodium 136. Potassium 4.1. Bicarb 24. BUN 32. Creatinine 0.94. Glucose 137. Objective - Vital Signs Vital signs: Vital Signs Temp 98.2 F 08/13/24 09:00 Pulse 73 08/13/24 11:25 Resp 17 08/13/24 11:25 BP 158/81 08/13/24 11:25 Pulse Ox 97 08/13/24 11:25 FiO2 Intake & Output 08/12/24 08/13/24 08/13/24 18:59 06:59 18:59 Intake Total 168 Output Total 535 850 Balance -367 -850 Weight 54.5 kg Intake: Intake, IV Titration 50 Amount cefTRIAXone 1 gm In 50 Sodium Chloride 0.9% 50 ml @ 100 mls/hr IVPB Q24HR [facility] Rx#:[id number] Oral 118 Output: Urine 535 850 Straight 550 Other: Voiding Method Indwelling Catheter Diaper Diaper # Bowel Movements 1 - Exam GENERAL EXAM: Alert,, 89-year-old female, on room air, fairly, comfortable in no apparent distress. HEAD: Normocephalic. Facial droop EYES: Normal reaction of pupils, equal size. NOSE: Clear with pink turbinates. THROAT: No erythema or exudates. NECK: No masses, no JVD. CHEST: No chest wall deformity. LUNGS: Equal air entry with no crackles, wheeze, rhonchi or dullness. CVS: S1 and S2 normal with no audible murmur, regular rhythm. ABDOMEN: No hepatosplenomegaly, normal bowel sounds, no guarding or rigidity. SPINE: No scoliosis or deformity SKIN: No rashes CENTRAL NERVOUS SYSTEM: Right sided weakness, facial droop, tone is normal in al l 4 extremities. EXTREMITIES: There is no peripheral edema. No clubbing, no cyanosis. Peripheral pulses are intact. - Labs CBC & Chem 7: 08/13/24 06:12 08/13/24 06:12 Labs: Abnormal Lab Results - Last 24 Hours (Table) 08/12/24 08/12/24 08/13/24 Range/Units 16:10 20:00 02:40 WBC (3.8-10.6) k/uL Neutrophils # (1.3-7.7) k/uL Lymphocytes # (1.0-4.8) k/uL Sodium (137-145) mmol/L BUN (7-17) mg/dL Glucose (74-99) mg/dL POC Glucose (mg/dL) 306 H 175 H 155 H (70-110) mg/dL 08/13/24 08/13/24 08/13/24 Range/Units 06:12 06:12 06:24 WBC 10.9 H (3.8-10.6) k/uL Neutrophils # 9.0 H (1.3-7.7) k/uL Lymphocytes # 0.9 L (1.0-4.8) k/uL Sodium 136 L (137-145) mmol/L BUN 32 H (7-17) mg/dL Glucose 137 H (74-99) mg/dL POC Glucose (mg/dL) 150 H (70-110) mg/dL 08/13/24 Range/Units 11:36 WBC (3.8-10.6) k/uL Neutrophils # (1.3-7.7) k/uL Lymphocytes # (1.0-4.8) k/uL Sodium (137-145) mmol/L BUN (7-17) mg/dL Glucose (74-99) mg/dL POC Glucose (mg/dL) 279 H (70-110) mg/dL Microbiology - Last 24 Hours (Table) 08/10/24 12:28 Blood Culture - Preliminary Blood 08/10/24 12:21 Urine Culture - Final Urine,Voided Escherichia coli Assessment and Plan Assessment: Acute CVA with right-sided weakness most likely secondary to her new onset atrial fibrillation Acute DKA with hyperglycemia and anion gap metabolic acidosis, resolved Acute kidney injury likely secondary to intravascular volume depletion and dehydration, improving Atrial fibrillation with rapid ventricular response Mild rhabdomyolysis secondary to above. The patient had collapsed on the floor for several days Suspected UTI Mild leukocytosis Plan: The patient was seen and evaluated Labs and medications reviewed Transferred out of the ICU yesterday Stable and on room air Plan is for subacute rehabilitation at discharge We will see the patient on an as needed basis I have personally seen and examined the patient, performed the documentation and the assessment and plan as written. Number of minutes spent on the visit: 10 Dictation was produced using [employer] dictation software. Please excuse any grammatical, word or spelling errors.
[2024-08-13 17:16] LABS: Glucose,Whole Blood 185 mg/dL (70-110)
[2024-08-13 20:11] LABS: Glucose,Whole Blood 126 mg/dL (70-110)
[2024-08-13] MEDS: APIXABAN 2.5 MG TABLET PO SCH (20:34)
[2024-08-14 02:40] LABS: Glucose,Whole Blood 127 mg/dL (70-110)
[2024-08-14 06:39] LABS: Glucose,Whole Blood 122 mg/dL (70-110)
[2024-08-14] MEDS: PANTOPRAZOLE 40 MG TABLET PO SCH (06:41)
[2024-08-14 07:33] LABS: Basophils % (A) 0 %; Eosinophils # (A) 0.3 k/uL (0-0.7); Eosinophils % (A) 4 %; HCT 40.2 % (34.0-46.0); HGB 12.9 gm/dL (11.4-16.0); Lymphocytes # (A) 1.1 k/uL (1.0-4.8); Lymphocytes % (A) 14 %; MCHC 32.1 g/dL (31.0-37.0); MCV 93.5 fL (80.0-100.0); Mean Platelet Volume 8.6; Monocytes # (A) 0.4 k/uL (0-1.0); Monocytes % (A) 5 %; Neutrophils # (A) 6.1 k/uL (1.3-7.7); Neutrophils % (A) 75 %; Platelet Count 202 k/uL (150-450); RDW 13.7 % (11.5-15.5)
[2024-08-14 07:47] LABS: African American GFR (CKD) 71 (>60 ml/min/1.73 sqM); Anion Gap 3 mmol/L; Blood Urea Nitrogen 26 mg/dL (7-17); Calcium 8.5 mg/dL (8.4-10.2); Carbon Dioxide 29 mmol/L (22-30); Chloride 105 mmol/L (98-107); Glucose 116 mg/dL (74-99); Non-African American GFR(CKD) 62 (>60 ml/min/1.73 sqM); Potassium 4.1 mmol/L (3.5-5.1); Sodium 137 mmol/L (137-145)
[2024-08-14] MEDS: LOSARTAN 25 MG TAB PO STA (10:32)
[2024-08-14 11:13] LABS: Glucose,Whole Blood 311 mg/dL (70-110)
[2024-08-14 14:13] VITALS: BMI 23.4
--- NOTE | 2024-08-14 14:30 | P.PN ---
Subjective Progress Note Date: 08/14/24 89 year old F with no PMH does not follow a physician presents to the ED. Daughter and grand daughter at bedside providing majority of the history. Appears she fell while trying to get out of bed on . She was found down on Sunday. Unknown head trauma or loss of consciousness. Lives alone and ambul ates with the aid of a cane. In the ED she underwent extensive evaluation. BP 73/39, HR 106, T 98.6F, RR 22, 94% on RA. CBC, Coag panel, CMP significant for WBC 15.2, Hg 16.1, Hct 50.9, APTT 19.4, K 5.7, bicarb 7, BUN 75, Cr 1.92, glu 530, T. Bili 1.4, AST 51, ALT 39. Lactic acid 5.4. CPK 526. Trop 0.055. BNP 2310. TSH 1.64. Phos 8.3. Mag 2.6. UA large LE with > [address] head and C-spine no acute process. CXR, Knee XR no acute process. EKG A-Fib with RVR rate of 144. Patient is admitted to ICU for further workup and management. Started on insulin drip and IV hydration. Admitted to ICU. Cardiology consulted. 08/11 Patient noted to have left sided facial droop and right sided weakness this morning. She is much more awake and alert. Maintained on Cardizem drip at 5 mg/h r. Insulin drip switched to SQ insulin. CBC, BMP significant for WBC 15.2, Cl 114, BUN 58, Cr 1.21, glu 218. Trop 0.127. GB US shows cholelithiasis without cholecystitis. Renal US showed right renal cyst and left renal atrophy. STAT CT head was ordered which is positive for new hypodensity in the left granda radiata. 08/12/2024 patient seen and examined at bedside. No new complaints. MRI brain ca ncelled due to metal in right eye. WBC 10.8, hemoglobin 12.1, platelet count 1 95,000 sodium 140, potassium 3.9, chloride 112, BUN 43, creatinine 1.03, glucose 191. Echo ordered EF 60 to 65% with normal LV anatomy 08/13/2024 patient seen and examined at bedside. No new complaints. No acute events overnight. Labs showed WBC 10.9, hemoglobin 13.4, platelet count 1 79,000, sodium 136, potassium 4.1, chloride 105, BUN 32, creatinine 0.94, glucose 137, calcium 8.6 08/14/2024 patient seen and examined at bedside. No acute events overnight. Labs today showed WBC 8, hemoglobin 12.9, platelet count 202,000, sodium 137, potassium 4.1, chloride 105, bicarb 29, BUN 26, creatinine 0.95, glucose 62, calcium 8.5 Review of systems: Pertinent positives and negatives as discussed in HPI, a complete review of systems was performed and all other systems are negative. Pertinent imaging and labs reviewed. Physical examination: Vital signs reviewed General: non toxic, no distress, appears at stated age Derm: no unusual rashes/lesions, warm Head: atraumatic, normocephalic, symmetric Eyes: EOMI, anicteric sclera, pupils equal round reactive to light ENT: Nose and ears atraumatic Neck: No cervical lymphadenopathy, trachea midline, supple Mouth: no lip lesion, mucus membranes moist Cardiovascular: S1S2 reg, no murmur Lungs: CTA bilateral, no rhonchi, no rales, no accessory muscle use Abdominal: soft, nontender to palpation, no guarding Ext: muscle strength 5 out of 5 in all 4 extremities grossly, no gross muscle atrophy, no contractures, positive dorsalis pedis pulse bilateral, no edema, 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 RU 3/5, RLE 3/5 strength, MALKA and LLE 5/5 Psych: Alert and oriented x3, appropriate affect and mood Assessment/Plan: 89-year-old female with no significant past medical history here for further evaluation of DKA and A-fib RVR that has now resolved and was found to have acute thrombotic CVA on imaging #. Acute thrombotic CVA -CT head positive for new hypodensity in the left granda radiata. -MRI brain cancelled due to metal in patient's eye -Echo ordered EF 60 to 65% with normal LV anatomy -Carotid US showed atheromatous plaquing without significant flow-limiting stenosis -A1c 12.8 -Lipid panel showed elevated cholesterol at 210, LDL normal at 126, HDL elevated at 63 -On Lipitor 80 mg PO QD -Continue ASA 81 mg p.o. daily -Neurology consultation. -Advanced neurochecks. -Telemetry monitoring. -PT/OT/ST recommended inpatient rehab. Patient preferred subacute rehab. -Consult for inpatient rehab aware of patient's preferrence for subacute rehab. -SW/CM working on discharge needs #. DM with hyperglycemia -Glucose 137 today -A1c 12.8 -Lantus 24 units QD -Lispro 6 units TID -ISS with Accuchecks ACHS -Hypoglycemic precautions. Accuchecks Q6H. #. Sepsis possibly related to UTI, resolved -WBC less than 12,000 since 08/12 -Continue Rocephin 1g IV QD currently on day 2 -UCx positive for E. coli -BCx negative -Cefdinir 5 days on d/c #. Atrial fibrillation with RVR -TSH wnl 1.640 -Cardizem drip discontinued 08/10 -Metoprolol 12.5 mg PO BID. -ASHISH VASC of 3. -Maintain K > 4 and Mg > 2. -Eliquis 2.5 mg PO BID -Echo ordered EF 60 to 65% with normal LV anatomy -Cardiology on board. have signed off #. Elevated blood pressure -Blood pressure trending upward 150s to 170s SBP -Increase losartan to 25mg p.o. daily #. NSTEMI, type II -No chest pain -Cardiology consulted. Have signed off #.Transaminitis, stable Unknown etiology. Liver GB US no pathology. #. Acute kidney injury vs CKD, resovled -Creatinine 0.85 -Renal bladder US no obstruction. -Monitor BMP #. Hyperkalemia, resolved #. DKA, resolved F: [place] thick liquids for now E: None for now N: Consistent carbohydrate and diet with one-on-one supervision A: Ambulate with assistance CODE STATUS: FULL CODE DVT Prophylaxis: Eliquis 2.5 mg p.o. twice daily GI Prophylaxis: Protonix 40 mg IV QD. Designated medical POA if patient is not able to make medical decisions for themselves: Daughter Aundreabina Ross MD PGY-1/Support Clerk Dictation was produced using BRIKA dictation software. please excuse any grammatical, word or spelling errors. I have seen and evaluated the patient today. Discussed with the resident and agree with the residents finding and plan as documented in the resident's note. Changes highlighted in blue font. Objective - Vital Signs Vital signs: Vital Signs Temp 97.9 F 08/13/24 20:29 Pulse 68 08/14/24 04:18 Resp 17 08/14/24 04:18 BP 177/84 08/14/24 04:18 Pulse Ox 96 08/14/24 04:18 FiO2 Intake & Output 08/13/24 08/13/24 08/14/24 06:59 18:59 06:59 Output Total 850 1750 Balance -850 -1750 Weight 54.5 kg Output: Urine 850 1750 Straight 550 Other: Voiding Method Diaper Diaper Indwelling Catheter # Bowel Movements 1 - Labs CBC & Chem 7: 08/14/24 06:51 08/14/24 06:51 Labs: Abnormal Lab Results - Last 24 Hours (Table) 08/13/24 08/13/24 08/13/24 Range/Units 06:12 06:12 11:36 WBC 10.9 H (3.8-10.6) k/uL Neutrophils # 9.0 H (1.3-7.7) k/uL Lymphocytes # 0.9 L (1.0-4.8) k/uL Sodium 136 L (137-145) mmol/L BUN 32 H (7-17) mg/dL Glucose 137 H (74-99) mg/dL POC Glucose (mg/dL) 279 H (70-110) mg/dL 08/13/24 08/13/24 08/14/24 Range/Units 17:14 20:10 02:38 WBC (3.8-10.6) k/uL Neutrophils # (1.3-7.7) k/uL Lymphocytes # (1.0-4.8) k/uL Sodium (137-145) mmol/L BUN (7-17) mg/dL Glucose (74-99) mg/dL POC Glucose (mg/dL) 185 H 126 H 127 H (70-110) mg/dL 08/14/24 Range/Units 06:37 WBC (3.8-10.6) k/uL Neutrophils # (1.3-7.7) k/uL Lymphocytes # (1.0-4.8) k/uL Sodium (137-145) mmol/L BUN (7-17) mg/dL Glucose (74-99) mg/dL POC Glucose (mg/dL) 122 H (70-110) mg/dL Microbiology - Last 24 Hours (Table) 08/10/24 12:28 Blood Culture - Preliminary Blood
[2024-08-14 16:16] LABS: Glucose,Whole Blood 175 mg/dL (70-110)
[2024-08-14 20:21] LABS: Glucose,Whole Blood 177 mg/dL (70-110)
[2024-08-15 01:33] LABS: Glucose,Whole Blood 100 mg/dL (70-110)
[2024-08-15 06:20] LABS: Glucose,Whole Blood 120 mg/dL (70-110)
[2024-08-15 06:41] LABS: Basophils % (A) 0 %; Eosinophils # (A) 0.3 k/uL (0-0.7); Eosinophils % (A) 3 %; HCT 41.7 % (34.0-46.0); HGB 13.3 gm/dL (11.4-16.0); Lymphocytes # (A) 1.3 k/uL (1.0-4.8); Lymphocytes % (A) 12 %; MCH 29.7 pg (25.0-35.0); MCHC 31.9 g/dL (31.0-37.0); MCV 93.2 fL (80.0-100.0); Monocytes # (A) 0.5 k/uL (0-1.0); Monocytes % (A) 5 %; Neutrophils # (A) 7.7 k/uL (1.3-7.7); Neutrophils % (A) 77 %; Platelet Count 243 k/uL (150-450); RBC 4.48 m/uL (3.80-5.40); RDW 13.5 % (11.5-15.5); WBC 10.1 k/uL (3.8-10.6)
[2024-08-15 07:01] LABS: African American GFR (CKD) 59 (>60 ml/min/1.73 sqM); Anion Gap 3 mmol/L; Blood Urea Nitrogen 33 mg/dL (7-17); Calcium 8.8 mg/dL (8.4-10.2); Carbon Dioxide 29 mmol/L (22-30); Chloride 101 mmol/L (98-107); Glucose 124 mg/dL (74-99); Non-African American GFR(CKD) 51 (>60 ml/min/1.73 sqM); Potassium 4.4 mmol/L (3.5-5.1); Sodium 133 mmol/L (137-145)
[2024-08-15 08:41] VITALS: BP 156/81; RESP 18; TEMP 97.6
[2024-08-15] MEDS: amLODIPine 5 MG TAB PO SCH (10:15)
[2024-08-15] MEDS: LOSARTAN 25 MG TAB PO SCH (10:16)
--- NOTE | 2024-08-15 10:58 | P.DS ---
Providers Date of admission: 08/10/24 14:31 Expected date of discharge: 08/15/24 Attending physician: Yohana Logan MD Consults: 08/10/24 14:31 Consult Physician Stat Consulting Provider: Richard Fall Consult Reason/Comments: DKA Do you want consulting provider notified?: Already Contacted 08/10/24 16:56 Consult Physician Routine Consulting Provider: Carlyle Workman Consult Reason/Comments: AFib RVR Trop Do you want consulting provider notified?: Yes 08/11/24 09:54 Consult Physician Routine Consulting Provider: Shilo Pozo Consult Reason/Comments: right sided weakness Do you want consulting provider notified?: Yes 08/13/24 09:38 Consult Physician Routine Consulting Provider: Wilbert Lowery Consult Reason/Comments: inpatient rehab Do you want consulting provider notified?: Yes Primary care physician: Stated None Hospital Course: Hospital Course: 89 year old F with no PMH does not follow a physician presents to the ED. Daughter and grand daughter at bedside providing majority of the history. Appears she fell while trying to get out of bed on . She was found down on Sunday. Unknown head trauma or loss of consciousness. Lives alone and amb ulates with the aid of a cane. In the ED she underwent extensive evaluation. BP 73/39, HR 106, T 98.6F, RR 22, 94% on RA. CBC, Coag panel, CMP significant for WBC 15.2, Hg 16.1, Hct 50.9, APTT 19.4, K 5.7, bicarb 7, BUN 75, Cr 1.92, glu 530, T. Bili 1.4, AST 51, ALT 39. Lactic acid 5.4. CPK 526. Trop 0.055. BNP 2310. TSH 1.64. Phos 8.3. Mag 2.6. UA large LE with > [address] head and C-spine no acute process. CXR, Knee XR no acute process. EKG A-Fib with RVR rate of 144. Patient was admitted for the evaluation of acute DKA, acute kidney injury, atrial fibrillation, transaminitis and UTI. Admitted to ICU, placed on telemetry monitoring, insulin drip, glucose Accu-Cheks, IV fluid, Rocephin IVPB, Cardizem drip, Eliquis. Ordered echocardiogram, urine and blood cultures, trending troponins, EKG as needed, renal bladder ultrasound, liver gallbladder ultrasound. Gallbladder ultrasound showed cholelithiasis with no suspicious change. Urine culture positive for E. coli. Blood cultures negative. Renal ultrasound showed right renal cysts, asymmetry of the renal sinus to consider left renal atrophy, nonvisualization of the left ureteral jet. Was able to transition of IV insulin troponins trended upward and cardiology was consulted. Echocardiogram showed EF 60 to 65% with normal LV anatomy. Found to have NSTEMI likely type II. Blood pressure uptrending and blood pressure medications were optimized. On 08/11 patient had noted right facial droop and right lower extremity weakness. Nephrology consulted and CT of the brain ordered. CT brain showed new hypodensity in the left granda radiata correlate for acute lacunar infarct. Placed on aspirin and high intensity statin, neurochecks and PT OT consulted. PT OT recommended inpatient rehab and consult was placed. However patient preferred being in subacute rehab. Discharge needs met today and will be discharged to subacute rehab. Patient prescribed aspirin, Lopressor, Norvasc, Cozaar, Eliquis, insulin, and Lipitor. Patient advised to follow-up with cardiology, and PCP on outpatient basis. Final Diagnosis: #. Acute left lacunar stroke #. Hyperkalemia, resolved #. DKA, resolved #. New onset type 2 diabetes #. Atrial fibrillation with RVR, resolved #. Sepsis possibly related to UTI, resolved #. Hypertension #. Transaminitis, stable #. NSTEMI #. Acute kidney injury, resovled Physical examination: Vital signs reviewed General: non toxic, no distress, appears at stated age Derm: no unusual rashes/lesions, warm Head: atraumatic, normocephalic, symmetric Eyes: EOMI, anicteric sclera, pupils equal round reactive to light ENT: Nose and ears atraumatic Neck: No cervical lymphadenopathy, trachea midline, supple Mouth: no lip lesion, mucus membranes moist Cardiovascular: S1S2 reg, no murmur Lungs: CTA bilateral, no rhonchi, no rales, no accessory muscle use Abdominal: soft, nontender to palpation, no guarding Ext: muscle strength 5 out of 5 in all 4 extremities grossly, no gross muscle atrophy, no contractures, positive dorsalis pedis pulse bilateral, no edema, 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 RU 3/5, RLE 3/5 strength, MALKA and LLE 5/5 Psych: Alert and oriented x3, appropriate affect and mood I have seen and evaluated the patient today. Discussed with the resident and agree with the residents finding and plan as documented in the resident's note. Changes highlighted in blue font. A total of 38 minutes of time were spent preparing this complex discharge summary. Patient was discharged on 08/15/2024 at 941. Patient Condition at Discharge: Stable Plan - Discharge Summary Discharge Rx Participant: Yes New Discharge Prescriptions: New Aspirin 81 mg PO DAILY #0 tab INSULIN LISPRO (HumaLOG) [HumaLOG] 0 unit SQ [id number] each Metoprolol Tartrate [Lopressor] 12.5 mg PO BID #0 tab amLODIPine [Norvasc] 5 mg PO DAILY #0 tab Losartan [Cozaar] 25 mg PO DAILY #0 tab Apixaban [Eliquis] 2.5 mg PO BID #0 tab INSULIN LISPRO (HumaLOG) [HumaLOG] 6 unit SQ AC-TID #0 each Insulin Glargine (Lantus) [Lantus Vial] 24 unit SQ DAILY@0700 each Atorvastatin [Lipitor] 80 mg PO DAILY #0 tab Discharge Medication List Apixaban [Eliquis] 2.5 mg PO BID #0 tab 08/15/24 [Rx] Aspirin 81 mg PO DAILY #0 tab 08/15/24 [Rx] Atorvastatin [Lipitor] 80 mg PO DAILY #0 tab 08/15/24 [Rx] INSULIN LISPRO (HumaLOG) [HumaLOG] 0 unit SQ [id number] each 08/15/24 [Rx] INSULIN LISPRO (HumaLOG) [HumaLOG] 6 unit SQ AC-TID #0 each 08/15/24 [Rx] Insulin Glargine (Lantus) [Lantus Vial] 24 unit SQ DAILY@0700 each 08/15/24 [Rx] Losartan [Cozaar] 25 mg PO DAILY #0 tab 08/15/24 [Rx] Metoprolol Tartrate [Lopressor] 12.5 mg PO BID #0 tab 08/15/24 [Rx] amLODIPine [Norvasc] 5 mg PO DAILY #0 tab 08/15/24 [Rx] Follow up Appointment(s)/Referral(s): Esvin Bridges DO [STAFF PHYSICIAN] - 1 Week Aundrea Ross MD [RESIDENT] - [facility] [NON-STAFF] - As Needed Patient Instructions/Handouts: Ischemic Stroke (DC), Hypertension (DC), Type 2 Diabetes in the Older Adult (DC) Activity/Diet/Wound Care/Special Instructions: Please see PCP outpatient Discharge Disposition: TRANSFER TO SNF/ECF
[2024-08-15 11:25] LABS: Glucose,Whole Blood 273 mg/dL (70-110)
[2024-08-15 11:45] VITALS: PULSE 68
--- NOTE | 2024-08-15 15:19 | P.PN ---
Subjective Progress Note Date: 08/15/24 I am following-up with patient and feels about the same. Denies any new neurological issues. She is being discharged to rehab today. Objective - Vital Signs Vital signs: Vital Signs Temp 97.6 F 08/15/24 07:15 Pulse 68 08/15/24 08:25 Resp 18 08/15/24 07:15 BP 156/81 08/15/24 07:15 Pulse Ox 96 08/15/24 07:15 FiO2 Intake & Output 08/14/24 08/15/24 08/15/24 18:59 06:59 18:59 Intake Total 540 Output Total 1000 900 700 Balance -460 -900 -700 Weight 54.5 kg 59 kg Intake: Oral 540 Output: Urine 1000 900 700 Uretheral ([place]) 900 Other: Voiding Method Indwelling Catheter Indwelling Catheter Indwelling Catheter # Bowel Movements 1 - Exam General: Lying in bed and is not in acute distress. Neuro: The patient is awake, alert, oriented to self, place and time. Is following simple commands. No aphasia. Pupils are round, 4mm, reactive to light. Visual benedict are full to confrontation throughout. EOM intact and no nystagmus. Normal facial sensation to touch throughout. Has right lower facial weakness. Has moderate dysarthria. Tongue is midline and moves side to side without difficulty. Motor: Strength in uppers: Right upper and lowers are 1-2 proximally while distally is 1. But at some instances is able to bend her elbows. Left side is 5/5. Has decrease tone on the right side. Sensation: Normal to touch throughout. Plantars: Right is upgoing at baseline. Left is mute. Some of work-up during this hospital visit consisted of: Lipid panel is triglycerides 98, cholesterol is 210, LDL is 126 and HDL is 63. HbA1c: 12.8 U/A seems concerning for acute UTI. I reviewed rest of lab work-up CT head: No acute intracranial process. I personally reviewed CT head and patient has lacunar on left basal ganglia but unsure chronicity. CT Cervical: No acute osseous abnormality. Repeat CT head: New hypodenisity in left granda radiata. Correlate for acute lacunar infarct. Carotid duplex is reported as atheromatous plaque and without significant flow- limiting stenosis. 2D echo: Normal left ventricular function. In the body of the report it is reported as moderate left atrial dilation. - Labs CBC & Chem 7: 08/15/24 06:17 08/15/24 06:17 Labs: Abnormal Lab Results - Last 24 Hours (Table) 08/14/24 08/14/24 08/15/24 Range/Units 16:13 20:14 06:17 Sodium 133 L (137-145) mmol/L BUN 33 H (7-17) mg/dL Glucose 124 H (74-99) mg/dL POC Glucose (mg/dL) 175 H 177 H (70-110) mg/dL 08/15/24 08/15/24 Range/Units 06:19 11:24 Sodium (137-145) mmol/L BUN (7-17) mg/dL Glucose (74-99) mg/dL POC Glucose (mg/dL) 120 H 273 H (70-110) mg/dL Assessment and Plan Assessment: This is a 89 y/o woman who presents to the emergency department on 08/10/2024 since was found on the floor at home. Was weak and unable to get up and carry her self, stand up. She was found to be in DKA and having right sided weakness. Also noted new onset A-fib. Repeat CT head seems concerning new hypodensity in left granda radiata. Has not seen PCP in at least 10 years. Acute to subacute stroke. Has significant right hemiparesis, right facial droop and dysarthria. Etiology of cva is risk factors. CT head show hypodensity in left granda radiata. 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 No IV thrombolytic since outside window and risk outweigh benefits. DKA Newly diagnosed DM that is uncontrolled (HbA1c: 12.8) Newly atrial fibrillation HTN Possible acute UTI Plan: Patient is started on eliquis 2.5mg bid and ASA 81mg daily. She is on Lipitor 80mg daily. From neurological perspective can be lowered to 40mg daily. 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 PT, OT and LOG WASHER are consulted. Patient will benefit from inpatient rehab. Continue neuro checks. Cardiac monitoring Will defer the rest of medical management to primary team and other specialists. For DVT prophylaxis: Is on Eliquis. Upon discharge, recommend the patient to follow-up with outpatient neurologist as outpatient within 2-3 weeks. The plan is discussed with the patient, her nurse and primary team. She is being discharged to rehab today. There is no further neurological work-up. Will sign off. Please reconsult if needed. Time with Patient: Less than 30
== END 2024-08-15 16:10 | DRG 64 ==
LOC: EC 11:58 → 2SICU 14:31 → 3SCARD 08-12 17:09 → 4SSUR 08-14 22:24
PROVIDERS: ADMIT Internal Medicine; ATTEND Internal Medicine
DX: I63.81 Other cerebral infarction due to occlusion or stenosis of small artery (principal); A41.51 Sepsis due to Escherichia coli [E. coli]; E11.10 Type 2 diabetes mellitus with ketoacidosis without coma; I21.A1 Myocardial infarction type 2; R65.20 Severe sepsis without septic shock; M62.82 Rhabdomyolysis; E86.9 Volume depletion, unspecified; I69.351 Hemiplegia and hemiparesis following cerebral infarction affecting right dominant side; I10 Essential (primary) hypertension; N17.9 Acute kidney failure, unspecified; N39.0 Urinary tract infection, site not specified; I48.0 Paroxysmal atrial fibrillation; Z79.4 Long term (current) use of insulin; E78.00 Pure hypercholesterolemia, unspecified; E87.5 Hyperkalemia; Z60.2 Problems related to living alone; W06.XXXA Fall from bed, initial encounter; R13.10 Dysphagia, unspecified; Y92.003 Bedroom of unspecified non-institutional (private) residence as the place of occurrence of the external cause; R29.810 Facial weakness; K44.9 Diaphragmatic hernia without obstruction or gangrene; K80.20 Calculus of gallbladder without cholecystitis without obstruction; N28.1 Cyst of kidney, acquired; Z79.01 Long term (current) use of anticoagulants; Z79.82 Long term (current) use of aspirin; Z79.899 Other long term (current) drug therapy
CPT/HCPCS: 36415; 51702; 70450; 71046; 72125; 76705; 76770; 80048; 80051; 80053; 80061; 81001; 82009; 82330; 82550; 82565; 82803; 82947; 83036; 83605; 83735; 83880; 84100; 84132; 84443; 84484; 84520; 85025; 85610; 85730; 87040; 87077; 87086; 87186; 93005; 93306; 93880; 96365; 96366; 96375; 99291